=== PATIENT | female | born 1965 | race Caucasian/White ===

== ENCOUNTER 2020-09-19 13:22 | Outpatient (REF) | payer MEDICARE, MEDICAID, SELFPAY ==
[2020-09-26 13:12] LABS: Vitamin A 40 mcg/dL (38-98)
== END 2020-09-19 13:23 | disposition home or self-care (01) ==
LOC: HO.LAB 13:22
PROVIDERS: Visit Provider Physician Assistant
DX: E66.3 Overweight (principal)
CPT/HCPCS: 84590

== ENCOUNTER → 2020-09-25 09:08 | Outpatient (BNVA) | payer MEDICARE, MEDICAID, SELFPAY | PROVIDERS: PCP Internal Medicine; Referring Provider Internal Medicine; Visit Provider Dietitian, Registered | DX: Z76.89 Persons encountering health services in other specified circumstances (principal) ==

== ENCOUNTER 2020-10-02 14:05 | Outpatient (REF) | payer MEDICARE, MEDICAID, SELFPAY ==
--- NOTE | 2020-10-02 | US_ITS ---
EXAMINATION: MM DIAGNOSTIC DIGITAL BREAST TOMOSYNTHESIS, BILATERAL US DIAGNOSTIC ULTRASOUND BREAST, LEFT CLINICAL INFORMATION: Recent pain outer left breast and axilla. No pain at time of visit. No palpable mass or discharge. Family history breast cancer, mother. The lifetime risk of breast cancer based on the Tyrer-Cuzick Model is 16%. COMPARISON: Mammography: 01/18/2020, 01/17/2019, 02/12/2018, 01/10/2017, 12/24/2015 TECHNIQUE: Digital breast tomosynthesis is performed in both the craniocaudal and mediolateral oblique views along with computer-aided detection (CAD). Synthesized 2D images are generated from the tomosynthesis. Ultrasound left breast is targeted to the upper outer quadrant and axilla and anterior mid lateral breast. Grayscale imaging and color Doppler are performed without and with harmonics. FINDINGS: There are scattered areas of fibroglandular density (ACR BI-RADS breast composition Category b). There is denser breast tissue composition in the bilateral upper outer quadrants in similar distribution to prior studies. There is no developing density or interval mass or architectural abnormality. No abnormal calcifications. The axilla and skin contours are unremarkable. There is no skin thickening or coarsening of the Koko's ligaments. Ultrasound left breast demonstrates no cystic or solid mass or focal duct ectasia. There is no skin thickening or coarsening of the Koko's ligaments. No lymphadenopathy. Results are discussed with the patient at time of visit. US/US breast LT limited IMPRESSION: 1. There are no significant changes from prior studies. 2. Unremarkable left breast ultrasound. ASSESSMENT: BI-RADS 1: Negative RECOMMENDATION: 1. Patient's recent left breast pain may be managed based on the clinical impression. 2. Otherwise, routine annual screening mammography. This patient's information was entered into a reminder system with a target due date for their next mammogram.
--- NOTE | 2020-10-02 13:45 | MM_ITS ---
EXAMINATION: MM DIAGNOSTIC DIGITAL BREAST TOMOSYNTHESIS, BILATERAL US DIAGNOSTIC ULTRASOUND BREAST, LEFT CLINICAL INFORMATION: Recent pain outer left breast and axilla. No pain at time of visit. No palpable mass or discharge. Family history breast cancer, mother. The lifetime risk of breast cancer based on the Tyrer-Cuzick Model is 16%. COMPARISON: Mammography: 01/18/2020, 01/17/2019, 02/12/2018, 01/10/2017, 12/24/2015 TECHNIQUE: Digital breast tomosynthesis is performed in both the craniocaudal and mediolateral oblique views along with computer-aided detection (CAD). Synthesized 2D images are generated from the tomosynthesis. Ultrasound left breast is targeted to the upper outer quadrant and axilla and anterior mid lateral breast. Grayscale imaging and color Doppler are performed without and with harmonics. FINDINGS: There are scattered areas of fibroglandular density (ACR BI-RADS breast composition Category b). There is denser breast tissue composition in the bilateral upper outer quadrants in similar distribution to prior studies. There is no developing density or interval mass or architectural abnormality. No abnormal calcifications. The axilla and skin contours are unremarkable. There is no skin thickening or coarsening of the Koko's ligaments. Ultrasound left breast demonstrates no cystic or solid mass or focal duct ectasia. There is no skin thickening or coarsening of the Koko's ligaments. No lymphadenopathy. Results are discussed with the patient at time of visit. MM/MM tomosynthesis diagnostic BI IMPRESSION: 1. There are no significant changes from prior studies. 2. Unremarkable left breast ultrasound. ASSESSMENT: BI-RADS 1: Negative RECOMMENDATION: 1. Patient's recent left breast pain may be managed based on the clinical impression. 2. Otherwise, routine annual screening mammography. This patient's information was entered into a reminder system with a target due date for their next mammogram.
== END 2020-10-02 14:06 | disposition home or self-care (01) ==
LOC: HO.MAMMO 14:05
PROVIDERS: Visit Provider Emergency Medicine
DX: N64.4 Mastodynia (principal)
CPT/HCPCS: 76642; 77062; 77066

== ENCOUNTER → 2020-11-07 08:15 | Outpatient (BNVA) | payer MEDICAID, MEDICARE, SELFPAY | PROVIDERS: PCP Internal Medicine; Visit Provider Physician Assistant | DX: Z76.89 Persons encountering health services in other specified circumstances (principal) ==

== ENCOUNTER → 2020-11-28 09:08 | Outpatient (BNVA) | payer MEDICAID, MEDICARE, SELFPAY | PROVIDERS: PCP Internal Medicine; Visit Provider Physician Assistant | DX: Z76.89 Persons encountering health services in other specified circumstances (principal) ==

== ENCOUNTER 2020-12-01 07:49 | Outpatient (REF) | payer MEDICARE, MEDICAID, SELFPAY ==
[2020-12-01 08:25] LABS: MANUAL DIFF FLAG NO
[2020-12-01 08:27] LABS: Basophils Percent Auto 0.2 % (0-2); Eosinophils Absolute Auto 0.1 X10*3/uL (0.0-0.4); Eosinophils Percent Auto 1.6 % (0-4); Hematocrit 37.6 % (37-47); Hemoglobin 12.2 g/dl (12.0-16.0); Imm Gran Abs Auto 0.01 X10*3/uL (0.00-0.03); Imm Gran Pct Auto 0.2 % (0.0-0.4); Lymphocytes Percent Auto 36.7 % (20-40); Mean Corpuscular HGB Conc 32.4 g/dl (31.0-35.0); Mean Corpuscular Hemoglobin 27.4 pg (27.0-33.0); Mean Corpuscular Volume 84.5 fL (80-98); Monocytes Absolute Auto 0.6 X10*3/uL (0.1-1.2); Monocytes Percent Auto 10.1 % (2-11); Neutrophils Absolute Auto 2.8 X10*3/uL (2.0-8.3); Neutrophils Percent Auto 51.2 % (45-73); Platelet Count 247 X10*3/uL (160-400); Red Blood Count 4.45 X10*6/uL (4.20-5.50); Red Cell Distribution Width 13.2 % (11.0-16.0); White Blood Count 5.5 X10*3/uL (4.8-10.8)
[2020-12-01 08:37] LABS: Glucose Urine UA NEG (NEG); Leukocyte Esterase Urine NEG (NEG); Nitrite Urine NEG (NEG); PH 7.5 (5.0-8.0); Urine Blood NEG (NEG); Urine Ketones NEG (NEG); Urine Protein NEG (NEG-TRACE)
[2020-12-01 08:44] LABS: Appearance Urine HAZY; Color Urine YELLOW
[2020-12-01 09:05] LABS: Alanine Aminotransferase 13 U/L (0-31); Albumin Level 4.1 g/dL (3.5-5.0); Anion Gap 12 (12-20); Aspartate Amino Transferase 12 U/L (5-31); Bilirubin Total 0.5 mg/dL (0.0-1.0); Blood Urea Nitrogen 16 mg/dL (9-16); C Reactive Protein 0.31 mg/dL (< or = 0.50); Calcium 9.8 mg/dL (8.4-10.2); Carbon Dioxide 28 mmol/L (22-29); Chloride 104 mmol/L (96-108); Estimated Glomerular Filt Rate > 60; Potassium 4.1 mmol/l (3.3-5.1); Sodium 140 mmol/L (135-145)
[2020-12-01 09:07] LABS: Amorphous Sediment Urine 1+ /LPF; Bacteria Urine TRACE /LPF; RBC Urine 0 /HPF (0); Squamous Epithelial Cell Urine 4+ /LPF; WBC Urine 0-2 /HPF (0-4)
[2020-12-01 09:34] LABS: Alkaline Phosphatase 65 U/L (39-117); Glucose Random 113 mg/dL (60-115); Total Protein 7.2 g/dL (6.5-8.0)
[2020-12-01 09:37] LABS: Erythrocyte Sedimentation Rate 20 MM/HR (0-20)
[2020-12-03 13:12] LABS: Anti DNA DS Antibody 2 IU/mL
[2020-12-03 14:27] LABS: Complement C3 93 mg/dL (83-193)
== END 2020-12-01 07:50 | disposition home or self-care (01) ==
LOC: HO.LAB 07:49
PROVIDERS: Absent Provider Physician Assistant; Visit Provider Student in an Organized Health Care Education/Training Program
DX: M32.9 Systemic lupus erythematosus, unspecified (principal)
CPT/HCPCS: 36415; 80053; 81001; 85025; 85652; 86140; 86160; 86225

== ENCOUNTER → 2021-02-27 08:13 | Outpatient (BNVA) | payer MEDICARE, MEDICAID, SELFPAY | PROVIDERS: PCP Internal Medicine; Visit Provider Physician Assistant | DX: E66.3 Overweight (principal); Z68.28 Body mass index [BMI] 28.0-28.9, adult; Z90.3 Acquired absence of stomach [part of]; Z71.3 Dietary counseling and surveillance; Z79.899 Other long term (current) drug therapy | CPT/HCPCS: Q3014 ==

== ENCOUNTER 2021-03-06 09:01 | Outpatient (REF) | payer MEDICARE, MEDICAID, SELFPAY ==
[2021-03-06 11:08] LABS: Estimated Average Glucose 120 mg/dL; Hemoglobin A1c % 5.8 %
[2021-03-06 11:24] LABS: Cholesterol 227 mg/dL; HDL Cholesterol 52 mg/dL; LDL Cholesterol Calculated 156 mg/dl; Triglycerides 96 mg/dL
[2021-03-06 11:29] LABS: TSH reflex Free T4 1.71 uIU/mL (0.32-4.0); Vitamin D 25-OH Total 32.7 ng/mL (>30)
[2021-03-06 12:04] LABS: Folate 13.7 ng/mL (> or = 4.0); Vitamin B12 > 2000 pg/mL (200-900)
[2021-03-07 06:46] LABS: Insulin Level Total 4.4 uIU/mL
[2021-03-09 12:47] LABS: Vitamin B1 34 nmol/L (8-30)
[2021-03-10 09:42] LABS: Vitamin A 37 mcg/dL (38-98)
== END 2021-03-06 09:02 | disposition home or self-care (01) ==
LOC: HO.LAB 09:01
PROVIDERS: Visit Provider Physician Assistant
DX: E78.5 Hyperlipidemia, unspecified (principal); E66.3 Overweight; Z90.3 Acquired absence of stomach [part of]
CPT/HCPCS: 36415; 80061; 82306; 82607; 82746; 83036; 83525; 84425; 84443; 84590

== ENCOUNTER → 2021-03-20 08:30 | Outpatient (BNVA) | payer MEDICARE, MEDICAID, SELFPAY | PROVIDERS: Visit Provider Physician Assistant | DX: E66.3 Overweight (principal); Z90.3 Acquired absence of stomach [part of]; Z68.28 Body mass index [BMI] 28.0-28.9, adult | CPT/HCPCS: Q3014 ==

== ENCOUNTER → 2021-03-21 14:12 | Outpatient (BNVA) | payer MEDICARE, MEDICAID, SELFPAY | PROVIDERS: PCP Internal Medicine; Visit Provider Student in an Organized Health Care Education/Training Program | DX: M32.9 Systemic lupus erythematosus, unspecified (principal) | CPT/HCPCS: 99212 ==

== ENCOUNTER 2021-04-15 13:52 | Outpatient (REF) | payer MEDICARE, MEDICAID, SELFPAY ==
[2021-04-15 14:36] LABS: MANUAL DIFF FLAG NO
[2021-04-15 14:46] LABS: Basophils Percent Auto 0.5 % (0-2); Eosinophils Absolute Auto 0.1 X10*3/uL (0.0-0.4); Eosinophils Percent Auto 1.6 % (0-4); Hematocrit 35.5 % (37-47); Hemoglobin 11.2 g/dl (12.0-16.0); Imm Gran Abs Auto 0.02 X10*3/uL (0.00-0.03); Imm Gran Pct Auto 0.3 % (0.0-0.4); Lymphocytes Absolute Auto 1.7 X10*3/uL (1.2-4.9); Lymphocytes Percent Auto 26.7 % (20-40); Mean Corpuscular HGB Conc 31.5 g/dl (31.0-35.0); Mean Corpuscular Hemoglobin 26.9 pg (27.0-33.0); Mean Corpuscular Volume 85.1 fL (80-98); Mean Platelet Volume 10.9 fL (9.4-12.3); Monocytes Absolute Auto 0.6 X10*3/uL (0.1-1.2); Monocytes Percent Auto 8.7 % (2-11); Neutrophils Percent Auto 62.2 % (45-73); Platelet Count 268 X10*3/uL (160-400); Red Blood Count 4.17 X10*6/uL (4.20-5.50); Red Cell Distribution Width 13.4 % (11.0-16.0); White Blood Count 6.3 X10*3/uL (4.8-10.8)
[2021-04-15 15:00] LABS: Alanine Aminotransferase 15 U/L (0-31); Albumin Level 4.1 g/dL (3.5-5.0); Alkaline Phosphatase 67 U/L (39-117); Anion Gap 11 (12-20); Aspartate Amino Transferase 15 U/L (5-31); Bilirubin Total 0.7 mg/dL (0.0-1.0); Blood Urea Nitrogen 16 mg/dL (9-16); C Reactive Protein 0.61 mg/dL (< or = 0.50); Calcium 9.7 mg/dL (8.4-10.2); Carbon Dioxide 25 mmol/L (22-29); Chloride 107 mmol/L (96-108); Estimated Glomerular Filt Rate > 60; Glucose Random 86 mg/dL (60-115); Potassium 4.2 mmol/L (3.3-5.1); Sodium 139 mmol/L (135-145); Total Protein 7.2 g/dL (6.5-8.0)
[2021-04-15 15:16] LABS: Glucose Urine UA NEG (NEG); Leukocyte Esterase Urine NEG (NEG); Nitrite Urine NEG (NEG); Specific Gravity - Urine 1.025 (1.005-1.025); Urine Blood TRACE (NEG); Urine Ketones NEG (NEG); Urine Protein NEG (NEG-TRACE)
[2021-04-15 15:18] LABS: Appearance Urine HAZY; Color Urine YELLOW
[2021-04-15 15:29] LABS: Amorphous Sediment Urine TRACE /LPF; Bacteria Urine TRACE /LPF; Squamous Epithelial Cell Urine 2+ /LPF; WBC Urine 0 /HPF (0-4)
[2021-04-15 16:14] LABS: Erythrocyte Sedimentation Rate 23 MM/HR (0-20)
[2021-04-16 11:16] LABS: Complement C3 85 mg/dL (83-193)
[2021-04-17 13:32] LABS: Anti DNA DS Antibody 1 IU/mL
== END 2021-04-15 13:53 | disposition home or self-care (01) ==
LOC: HO.LAB 13:52
PROVIDERS: Visit Provider Student in an Organized Health Care Education/Training Program
DX: M32.9 Systemic lupus erythematosus, unspecified (principal)
CPT/HCPCS: 36415; 80053; 81001; 85025; 85652; 86140; 86160; 86225

== ENCOUNTER 2021-10-25 11:53 | Outpatient (REF) | payer MEDICARE, MEDICAID, SELFPAY ==
--- NOTE | ~2021-10-25 | MM_ITS ---
EXAMINATION: MM SCREENING DIGITAL BREAST TOMOSYNTHESIS, BILATERAL CLINICAL INFORMATION: Screening. Asymptomatic. The lifetime risk of breast cancer based on the Tyrer-Cuzick Model is 15%. COMPARISON: Mammography: 10/02/2020, 01/18/2020, 01/17/2019, 02/12/2018; left breast ultrasound 10/02/2020 TECHNIQUE: Digital breast tomosynthesis is performed in both the craniocaudal and mediolateral oblique views along with computer-aided detection (CAD). Synthesized 2D images are generated from the tomosynthesis. FINDINGS: There are scattered areas of fibroglandular density (ACR BI-RADS breast composition Category b). Breast tissue composition borders on heterogeneously dense in the bilateral upper outer quadrants. Parenchymal pattern is similar to prior studies. There is no significant mass or architectural abnormality or abnormal calcifications. The axilla and skin contours are unremarkable. MM/MM tomosynthesis screening BI IMPRESSION: No mammographic evidence of malignancy. ASSESSMENT: BI-RADS 1: Negative RECOMMENDATION: Routine annual mammography screening. This patient's information was entered into a reminder system with a target due date for their next mammogram.
== END 2021-10-25 11:54 | disposition home or self-care (01) ==
LOC: HO.MAMMO 11:53
PROVIDERS: PCP Internal Medicine; Visit Provider Internal Medicine
DX: Z12.31 Encounter for screening mammogram for malignant neoplasm of breast (principal)
CPT/HCPCS: 77063; 77067

== ENCOUNTER 2022-12-09 07:54 | Outpatient (REF) | payer MEDICARE, SELFPAY ==
--- NOTE | ~2022-12-09 | MM_ITS ---
EXAMINATION: MM SCREENING DIGITAL BREAST TOMOSYNTHESIS, BILATERAL CLINICAL INFORMATION: Screening. Asymptomatic. The lifetime risk of breast cancer based on the Tyrer-Cuzick Model is 9%. COMPARISON: Mammography: 10/25/2021, 10/02/2020, 01/18/2020, 01/17/2019 TECHNIQUE: Digital breast tomosynthesis is performed in both the craniocaudal and mediolateral oblique views along with computer-aided detection (CAD). Synthesized 2D images are generated from the tomosynthesis. FINDINGS: The breasts are heterogeneously dense, which may obscure small masses (ACR BI-RADS breast composition Category c). Denser breast tissue composition is in the upper outer quadrant similar to prior studies. Breast tissue composition borders on average fibroglandular. Parenchymal pattern is similar to prior studies. There is no developing density or architectural abnormality. No abnormal calcifications. The axilla and skin contours are unremarkable. No significant changes from prior studies. MM/MM tomosynthesis screening BI IMPRESSION: No mammographic evidence of malignancy. ASSESSMENT: BI-RADS 1: Negative RECOMMENDATION: Routine annual mammography screening. This patient's information was entered into a reminder system with a target due date for their next mammogram.
== END 2022-12-09 07:55 | disposition home or self-care (01) ==
LOC: HO.MAMMO 07:54
PROVIDERS: PCP Internal Medicine; Visit Provider Internal Medicine
DX: Z12.31 Encounter for screening mammogram for malignant neoplasm of breast (principal)
CPT/HCPCS: 77063; 77067

== ENCOUNTER 2023-01-21 08:06 | Outpatient (REF) | payer MEDICARE, SELFPAY ==
--- NOTE | ~2023-01-21 | XR_ITS ---
EXAMINATION: XR LUMBOSACRAL SPINE CLINICAL INFORMATION: Lower back pain. COMPARISON: None TECHNIQUE: AP and lateral views of the lumbar spine and lateral view of the lumbosacral junction. FINDINGS: The vertebral bodies and posterior elements are normal. The disc spaces are preserved and the vertebral alignment is normal. There is a small Schmorl's node of the L4 upper endplate. There is multi-level mild lumbar spondylosis. The posterior elements are intact. There is facet arthropathy at L5-S1. There are abdominal surgical clips. The paraspinal soft tissues are normal. XR/XR lumbar spine 2-3V IMPRESSION: 1. No acute fracture or spondylolisthesis is seen. 2. The lumbar disc spaces are well-maintained. 3. There is multi-level mild lumbar spondylosis.
--- NOTE | ~2023-01-21 | XR_ITS ---
EXAMINATION: XR SHOULDER, LEFT CLINICAL INFORMATION: Pain. COMPARISON: Radiographs dated 02/10/2016. TECHNIQUE: AP external rotation, Grashey, scapular Y, and axillary views of the left shoulder. FINDINGS: Bony alignment and mineralization are normal. The glenohumeral joint is intact. The acromioclavicular and coracoclavicular intervals are normal. No fracture or dislocation is seen. There is cortical irregularity of the greater tuberosity of the proximal left humerus. No soft tissue calcification or foreign body is seen. There is no left pneumothorax. XR/XR shoulder LT min 2V IMPRESSION: 1. No fracture or dislocation is seen. 2. There is cortical irregularity of the greater tuberosity of the proximal left humerus, which can be associated with rotator cuff impingement. No som calcific tendinitis is noted.
[2023-01-21 10:46] LABS: Basophils Percent Auto 0.3 % (0-2); Eosinophils Absolute Auto 0.1 X10*3/uL (0.0-0.4); Hematocrit 37.6 % (37.0-47.0); Hemoglobin 12.3 g/dl (12.0-16.0); Imm Gran Abs Auto 0.01 X10*3/uL (0.00-0.03); Imm Gran Pct Auto 0.2 % (0.0-0.4); Lymphocytes Absolute Auto 1.6 X10*3/uL (1.2-4.9); Lymphocytes Percent Auto 26.1 % (20-40); MANUAL DIFF FLAG NO; Mean Corpuscular HGB Conc 32.7 g/dl (31.0-35.0); Mean Corpuscular Hemoglobin 26.9 pg (27.0-33.0); Mean Corpuscular Volume 82.3 fL (80.0-98.0); Mean Platelet Volume 11.6 fL (9.4-12.3); Monocytes Absolute Auto 0.6 X10*3/uL (0.1-1.2); Monocytes Percent Auto 9.2 % (2-11); Neutrophils Absolute Auto 3.9 x10*3/uL (2.0-8.3); Neutrophils Percent Auto 63.2 % (45-73); Platelet Count 276 X10*3/uL (160-400); Red Blood Count 4.57 X10*6/uL (4.20-5.50); Red Cell Distribution Width 13.7 % (11.0-16.0); White Blood Count 6.2 X10*3/uL (4.8-10.8)
[2023-01-21 10:58] LABS: Estimated Average Glucose 126 mg/dL
[2023-01-21 11:25] LABS: Alanine Aminotransferase 17 U/L (0-31); Albumin Level 4.1 g/dL (3.5-5.0); Alkaline Phosphatase 70 U/L (39-117); Anion Gap 12 (12-20); Aspartate Amino Transferase 15 U/L (5-31); Bilirubin Total 0.9 mg/dL (0.0-1.0); Blood Urea Nitrogen 14 mg/dL (9-16); C Reactive Protein 0.49 mg/dL (< or = 0.50); Calcium 10.1 mg/dL (8.4-10.2); Carbon Dioxide 28 mmol/L (22-29); Chloride 103 mmol/L (96-108); Estimated Glomerular Filt Rate > 60; Glucose Random 100 mg/dL (60-115); Potassium 4.4 mmol/L (3.3-5.1); Sodium 139 mmol/L (135-145); Total Protein 7.4 g/dL (6.5-8.0)
[2023-01-21 11:37] LABS: Erythrocyte Sedimentation Rate 28 MM/HR (0-20)
[2023-01-21 11:54] LABS: Protein/Creatinine Ratio, Ur 0.07 (<0.2); Total Protein Urine Random 12 mg/dL (<12)
[2023-01-22 13:18] LABS: Anti DNA DS Antibody 1 IU/mL; SM/Ribonucleoprotein Ab <1.0 NEG AI (<1.0 NEG); Smith Protein <1.0 NEG AI (<1.0 NEG)
[2023-01-22 16:32] LABS: Complement C3 154 mg/dL (83-193)
== END 2023-01-21 08:07 | disposition home or self-care (01) ==
LOC: HO.LAB 08:06
PROVIDERS: PCP Internal Medicine; Visit Provider Nurse Practitioner Family
DX: M32.9 Systemic lupus erythematosus, unspecified (principal); M25.512 Pain in left shoulder; M54.50 Low back pain, unspecified; Z79.899 Other long term (current) drug therapy
CPT/HCPCS: 36415; 72100; 73030; 80053; 83036; 84156; 85025; 85652; 86140; 86160; 86225; 86235; 99212

== ENCOUNTER → 2023-02-20 07:20 | Outpatient (BNVA) | payer MEDICARE, SELFPAY | PROVIDERS: PCP Internal Medicine; Visit Provider Nurse Practitioner Family | DX: M54.50 Low back pain, unspecified (principal); M79.7 Fibromyalgia | CPT/HCPCS: 99212 ==

== ENCOUNTER 2023-06-03 08:37 | Outpatient (REF) | payer MEDICARE, SELFPAY ==
--- NOTE | ~2023-06-03 | XR_ITS ---
X-RAY LUMBAR SPINE X-RAY RIGHT HIP CLINICAL HISTORY: Pain. COMPARISON: Radiograph of the lumbar spine 01/21/2023. TECHNIQUE: 3 views of the lumbar spine. 2 views of the right hip. FINDINGS: Lumbar spine: No acute compression deformity or subluxation. Moderate joint space narrowing and facet arthropathy at L5-S1 with some degree of neural foraminal encroachment. Fairly symmetric increased sclerosis of the SI joints. No significant paraspinal soft tissue abnormality. Surgical clips and anastomotic sutures projecting over the gastric region. Right hip: No acute fracture or subluxation. Moderate joint space narrowing and subcortical sclerosis of the right hip. No significant soft tissue abnormality. XR/XR lumbar spine 2-3V IMPRESSION: 1. No acute compression deformity or subluxation. 2. Moderate degenerative osteoarthritis of the right hip. 3. Moderate degenerative changes in the lumbar spine at L5-S1 leading to neural foraminal encroachment, further evaluation with an MRI could be obtained as clinically indicated.
--- NOTE | ~2023-06-03 | XR_ITS ---
X-RAY LUMBAR SPINE X-RAY RIGHT HIP CLINICAL HISTORY: Pain. COMPARISON: Radiograph of the lumbar spine 01/21/2023. TECHNIQUE: 3 views of the lumbar spine. 2 views of the right hip. FINDINGS: Lumbar spine: No acute compression deformity or subluxation. Moderate joint space narrowing and facet arthropathy at L5-S1 with some degree of neural foraminal encroachment. Fairly symmetric increased sclerosis of the SI joints. No significant paraspinal soft tissue abnormality. Surgical clips and anastomotic sutures projecting over the gastric region. Right hip: No acute fracture or subluxation. Moderate joint space narrowing and subcortical sclerosis of the right hip. No significant soft tissue abnormality. XR/XR hip RT min 2V IMPRESSION: 1. No acute compression deformity or subluxation. 2. Moderate degenerative osteoarthritis of the right hip. 3. Moderate degenerative changes in the lumbar spine at L5-S1 leading to neural foraminal encroachment, further evaluation with an MRI could be obtained as clinically indicated.
== END 2023-06-03 08:38 | disposition home or self-care (01) ==
LOC: HO.HHCX 08:37
PROVIDERS: Visit Provider Registered Nurse
DX: M54.50 Low back pain, unspecified (principal); R10.31 Right lower quadrant pain; M25.551 Pain in right hip
CPT/HCPCS: 72100; 73502

== ENCOUNTER 2023-12-15 08:38 | Outpatient (REF) | payer MEDICARE, SELFPAY | END 2023-12-15 08:39 | disposition home or self-care (01) | LOC: HO.MAMMO 08:38 | PROVIDERS: PCP Internal Medicine; Visit Provider Internal Medicine | DX: Z12.31 Encounter for screening mammogram for malignant neoplasm of breast (principal) | CPT/HCPCS: 77063; 77067 ==

== ENCOUNTER → 2023-12-15 09:45 | Outpatient (BNV) | payer MEDICARE, SELFPAY | PROVIDERS: PCP Internal Medicine; Visit Provider Radiology Diagnostic Radiology | DX: Z12.31 Encounter for screening mammogram for malignant neoplasm of breast (principal) | CPT/HCPCS: 77063; 77067 ==

== ENCOUNTER 2024-09-02 08:16 | Outpatient (REF) | payer MEDICARE, SELFPAY ==
[2024-09-02 11:19] LABS: Appearance Urine Clear; Color Urine Yellow; Glucose Urine UA Negative (Negative); Leukocyte Esterase Urine Trace (Negative); Nitrite Urine Negative (Negative); PH 6.5 (5.0-9.0); Specific Gravity - Urine 1.025 (1.005-1.025); UMIC TRIGGER UACC YES; Urine Blood Trace (Negative); Urine Ketones Negative (Negative); Urine Protein Negative (Neg-Trace)
[2024-09-02 11:20] LABS: MANUAL DIFF FLAG NO
[2024-09-02 11:26] LABS: Bacteria Urine 1+ (None Seen); Hyaline Casts Urine 0-2 /LPF (0-2); UACC Culture Trigger YES
[2024-09-02 11:28] LABS: Basophils Percent Auto 0.4 % (0-2); Eosinophils Absolute Auto 0.1 X10*3/uL (0.0-0.4); Hematocrit 37.4 % (37.0-47.0); Imm Gran Abs Auto 0.01 X10*3/uL (0.00-0.03); Imm Gran Pct Auto 0.2 % (0.0-0.4); Lymphocytes Absolute Auto 1.6 X10*3/uL (1.2-4.9); Lymphocytes Percent Auto 29.6 % (20-40); Mean Corpuscular HGB Conc 32.1 g/dl (31.0-35.0); Mean Corpuscular Hemoglobin 26.7 pg (27.0-33.0); Mean Corpuscular Volume 83.1 fL (80.0-98.0); Mean Platelet Volume 11.5 fL (9.4-12.3); Monocytes Absolute Auto 0.5 X10*3/uL (0.1-1.2); Monocytes Percent Auto 9.4 % (2-11); Neutrophils Absolute Auto 3.2 x10*3/uL (2.0-8.3); Neutrophils Percent Auto 58.4 % (45-73); Platelet Count 267 X10*3/uL (160-400); Red Cell Distribution Width 14.1 % (11.0-16.0); White Blood Count 5.4 X10*3/uL (4.8-10.8)
[2024-09-02 11:37] LABS: Estimated Average Glucose 126 mg/dL; Hemoglobin A1C 123.7162 umol/L; Total Hemoglobin (HGBA1C) 2943.7318 umol/L
[2024-09-02 11:57] LABS: Alanine Aminotransferase 16 U/L (0-31); Albumin Level 3.9 g/dL (3.5-5.0); Alkaline Phosphatase 61 U/L (39-117); Anion Gap 9 (12-20); Aspartate Amino Transferase 17 U/L (5-31); Bilirubin Total 0.8 mg/dL (0.0-1.0); Blood Urea Nitrogen 12 mg/dL (9-16); C Reactive Protein 0.49 mg/dL (< or = 0.50); Calcium 9.7 mg/dL (8.4-10.2); Carbon Dioxide 28 mmol/L (22-29); Chloride 106 mmol/L (96-108); Cholesterol 262 mg/dL (<200); Estimated Glomerular Filt Rate > 60; Glucose Random 104 mg/dL (60-115); HDL Cholesterol 50 mg/dL (>40); LDL Cholesterol Calculated 193 mg/dL (<100); Potassium 3.9 mmol/L (3.3-5.1); Sodium 139 mmol/L (135-145); TSH reflex Free T4 3.26 uIU/mL (0.32-4.0); Total Protein 7.3 g/dL (6.5-8.0); Triglycerides 99 mg/dL (<150)
[2024-09-02 12:00] LABS: HIV AB/AG Nonreactive (Nonreactive); HIV Num 1 0.04 S/CO (0.00-0.99); ~HepC Num1 0.52 S/CO (0.00-0.79); ~Hepatitis C Antibody Nonreactive (Nonreactive)
[2024-09-02 12:01] LABS: Erythrocyte Sedimentation Rate 25 MM/HR (0-20)
[2024-09-05 14:09] LABS: Anti Nuclear Antibody Screen NEGATIVE (NEGATIVE)
== END 2024-09-02 08:17 | disposition home or self-care (01) ==
LOC: HO.HHCL 08:16
PROVIDERS: Visit Provider General Practice
DX: L93.0 Discoid lupus erythematosus (principal); I10 Essential (primary) hypertension; Z11.3 Encounter for screening for infections with a predominantly sexual mode of transmission; R73.03 Prediabetes
CPT/HCPCS: 36415; 80053; 80061; 81001; 83036; 84443; 85025; 85652; 86038; 86140; 86803; 87086; 87389

== ENCOUNTER 2024-12-15 12:19 | Outpatient (AMB) | payer OTHER, SELFPAY ==
--- NOTE | 2024-12-15 12:45 | MHC.OFFVIS ---
Vital Signs 12/15/24 12:50 Height 5 ft 3 in Weight 182 lb 12.211 oz BMI 32.4 BP 124/80 Blood Pressure Location Lt brachial Position Sitting Pulse 82 Pulse Source Pulse Oximeter Pulse Oximetry (%) 97 Oxygen Delivery Method Room Air Intake Visit Reasons: SLE Intake Note: Patient presents for SLE. 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 Services: Drug And Alcohol Treatment Specialist Present Drug And Alcohol Treatment Specialist Name: Oliver [phone] Information Interpreted: non-clinical & clinical Allergies Penicillins [PENICILLINS] Allergy (Intermediate, Verified 12/15/24 12:48) RASH Medication List - Last Reconciled 12/15/24 by Jaycee Lemon MD ascorbate calcium (vitamin C) 500 mg PO DAILY biotin 5 mg PO DAILY cholecalciferol (vitamin D3) 50 mcg PO DAILY clonazepam 0.5 mg PO BID PRN escitalopram oxalate 5 mg PO DAILY fluoxetine 40 mg PO QAM mecobalamin (vitamin B12) 1,000 mcg PO DAILY nortriptyline 10 mg PO BEDTIME HPI Comments Details: Patient is a 59-year-old female with anxiety and depression, fibromyalgia, lupus and polyarticular osteoarthritis here today for follow up Interval History: Patient last seen 02/20/2023 with Iza Vann. At that time patient did not have any signs or symptoms concerning for active lupus. She did have evidence of fibromyalgia with positive tender points and was doing well with nortriptyline. Since then patient has been lost to follow up since that rheumatology provider left. Has been off Plaquenil. Has not noted any joint pain or any joint symptoms since being off Plaquenil Today's complain of whole-body pains. This is component by the recent of her and she is currently taking care of her sick mother. Pain includes her hips, knees, low back and shoulders. Denies any hand pain or swelling or prolonged morning stiffness. No rashes. No oral ulcers. Rheumatologic History: History of lupus and fibromyalgia No organ involvement lupus Current Rheumatology Medication(s): Nortriptyline 10mg bedtime (being given by primary) [facility] Medical History (Updated 12/15/24 @ 13:28 by Jaycee Lemon MD) Knee osteoarthritis Varicose vein of leg GERD (gastroesophageal reflux disease) Hx of migraines Rheumatoid arthritis Hypertension Lupus Surgical History History of bilateral tubal ligation Family History Mother Cancer Hypertension AD (Alzheimer's disease) Father Stroke Social History Alcohol intake: never Review of Systems Const Details: Review of Systems Constitutional: Denies fever, chills, weight loss ENT: Denies vision changes, eye pain or eye redness, dental caries, dry mouth GI: Denies nausea, vomiting, diarrhea, abdominal pain, change in BM Pulm: Denies SOB, HAMMOND, hemoptysis, wheezing Cards: Denies chest pain, palpitations Skin: Denies Raynaud's, rash, nail changes, photosensitivity, RESEARCH ASSISTANT PROFESSOR: Denies headaches, weakness, paresthesias, recurrent falls MSK: as per HPI All other systems reviewed and are unremarkable except noted above Physical Exam Vital Signs: Last Vital Signs Pulse 82 12/15/24 12:50 BP 124/80 12/15/24 12:50 Pulse Ox 97 12/15/24 12:50 Oxygen Delivery Method Room Air 12/15/24 12:50 BMI result Body Mass Index 32.4 Vital signs reviewed Physical Examination CONSTITUITIONAL Patient alert and cooperative. Well appearing and in no apparent painful distress HEENT Conjunctiva and sclera clear. ?Pupils equal round and reactive to light. ?No lymphadenopathy. ?No oral ulcers CHEST/RESPIRATORY SYSTEM Normal respiratory effort and able to speak in complete sentences. ?Clear to auscultation bilaterally. ?No crackles, rales, rhonchi, wheezes heard. CARDIAC SYSTEM Regular rate and rhythm. ?S1 and S2 heard no murmurs. 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 No deformities noted. ?No synovitis noted to the MCPs, PIPs or DIPs. ?No tenderness to palpation of these joints. Wrists: ?Full range of motion at the wrists without pain. ?No tenderness to palpation or synovitis noted to the wrists. Elbows: Full range of motion without pain. No tenderness, weakness, swelling, increased warmth or erythema. Shoulders: Full range of motion without pain. No tenderness, weakness, swelling, increased warmth or erythema. Hips: Full range of motion without pain. Hip bursa: No tenderness to palpation Knees: ?Full range of motion. ?No tenderness, swelling, increased warmth or erythema.? Crepitations felt bilaterally Ankles: Full range of motion. ?No tenderness, swelling, increased warmth or erythema.? Feet: ?Negative squeeze test. ?No tenderness to palpation or swelling of the MTPs. Tender points:? Tenderness to palpation of bilateral trapezius, supraspinatus, anterior costochondral junctions, lower back paraspinal muscles, SKIN Skin intact without rashes. Results Reviewed Results Reviewed: Laboratory Tests 01/21/23 09/02/24 10:03 08:20 WBC 5.4 RBC 4.50 Hgb 12.0 Hct 37.4 Plt Count 267 Sodium 139 Potassium 3.9 Chloride 106 Carbon Dioxide 28 Calcium 9.7 Total Bilirubin 0.8 AST 17 ALT 16 Alkaline Phosphatase 61 C-Reactive Protein 0.49 Total Protein 7.3 Albumin 3.9 Urine Color Yellow Urine Appearance Clear Urine pH 6.5 Ur Specific [place] 1.025 Urine Protein Negative Urine Blood Trace H Ur Leukocyte Esterase Trace H Urine RBC 6-10 H Urine WBC 11-20 H RICCO Screen NEGATIVE Sm (Armendariz) Antibody <1.0 NEG SM/PINMAKER IgG Antibody <1.0 NEG Double Strand DNA Ab 1 Complement C3 154 Complement C4 43 XR Lumbar spine and right hip 05/2023 FINDINGS: Lumbar spine: No acute compression deformity or subluxation. Moderate joint space narrowing and facet arthropathy at L5-S1 with some degree of neural foraminal encroachment. Fairly symmetric increased sclerosis of the SI joints. No significant paraspinal soft tissue abnormality. Surgical clips and anastomotic sutures projecting over the gastric region. Right hip: No acute fracture or subluxation. Moderate joint space narrowing and subcortical sclerosis of the right hip. No significant soft tissue abnormality. Assessment & Plan Assessment & Plan (1) Lupus: Comment: No evidence of active lupus on exam January 2023 Code(s): M32.9 - Systemic lupus erythematosus, unspecified Category: Medical Plan: #SLE Patient is a 59-year-old female with a history of lupus based on arthralgias, oral ulcers and photosensitivity. Has not been on Plaquenil since 2022. No evidence of active lupus today on examination. We will monitor off Plaquenil for now Plan - hold Plaquenil for now - check labs today: CBC, CMP, ESR, CRP, C3, C4 dsDNA, RICCO, vivi, SSA/SSB UA, upc - RTC 6 months (2) Fibromyalgia: Comment: Started on nortriptyline 01/2023 by psychiatrist with improvement symptoms Code(s): M79.7 - Fibromyalgia Category: Medical Plan: #Fibromyalgia Patient is having fibromyalgia symptoms and this is compounded with the recent of her and her having take care of her mother who is ill with cancer. I recommended continuing to take the nortriptyline at nights. Added tizanidine to her regimen hopefully this will help. Patient does not want to try gabapentin so she tried it in the past and it did not help. Plan - Tizanidine 4mg at night - Continue nortriptyline - Stretches and exercises (3) Knee osteoarthritis: Code(s): M17.9 - Osteoarthritis of knee, unspecified Category: Medical Qualifiers: Osteoarthritis type: primary Laterality: bilateral Qualified Code(s): M17.0 - Bilateral primary osteoarthritis of knee Plan: #Bilateral Knee OA Exam consistent with bilateral knee osteoarthritis. Crepitations felt. No obvious swelling on examination today. Offered steroid injections today but patient stated that she has gotten injections in the past and that did not help so she is declining that today. Plan I spent 30 minutes reviewing the record and labs, taking a history, examining the patient, discussing the treatment plan and documenting in the medical record Orders: Orders Complement C3 Today M32.9 - Systemic lupus erythematosus, unspecified, M79.7 - Fibromyalgia Complement C4 Today M32.9 - Systemic lupus erythematosus, unspecified, M79.7 - Fibromyalgia C Reactive Protein Today M32.9 - Systemic lupus erythematosus, unspecified, M79.7 - Fibromyalgia DNA Double Stranded-Crithidia Today M32.9 - Systemic lupus erythematosus, unspecified, M79.7 - Fibromyalgia Erythrocyte Sedimentation Rate Today M32.9 - Systemic lupus erythematosus, unspecified, M79.7 - Fibromyalgia RICCO Reflex Titer and Pattern Today M32.9 - Systemic lupus erythematosus, unspecified, M79.7 - Fibromyalgia Anti DNA DS Antibody Today M32.9 - Systemic lupus erythematosus, unspecified, M79.7 - Fibromyalgia Lupus Anticoagulant Panel Today M32.9 - Systemic lupus erythematosus, unspecified, M79.7 - Fibromyalgia Sjogren's Antibodies Today M32.9 - Systemic lupus erythematosus, unspecified, M79.7 - Fibromyalgia Complete Blood Count Auto Diff Today M32.9 - Systemic lupus erythematosus, unspecified, M79.7 - Fibromyalgia Comprehensive Met. Panel Today M32.9 - Systemic lupus erythematosus, unspecified, M79.7 - Fibromyalgia Protein Creatinine Ratio, Ur Today M32.9 - Systemic lupus erythematosus, unspecified, M79.7 - Fibromyalgia UA w Microscopic Today M32.9 - Systemic lupus erythematosus, unspecified, M79.7 - Fibromyalgia Sm Sm/PINMAKER Antibodies Today M32.9 - Systemic lupus erythematosus, unspecified, M79.7 - Fibromyalgia Medications: New tizanidine 4 mg PO BEDTIME 90 tabs 1RF muscle spasticity M32.9 - Systemic lupus erythematosus, unspecified, M79.7 - Fibromyalgia Coding Level of Care Code Est Pt Level 3 (75089) Complex EM visit Add On G2211 Diagnoses Lupus M32.9 Fibromyalgia M79.7 Primary osteoarthritis of both knees M17.0 Osteoarthritis type: primary Laterality: bilateral
[2024-12-15 12:50] VITALS: BP 124/80; PULSE 82; O2SAT 97; BMI 32.4
== END 2024-12-15 13:22 | disposition home or self-care (01) ==
PROVIDERS: PCP Internal Medicine; Visit Provider Student in an Organized Health Care Education/Training Program
DX: M32.9 Systemic lupus erythematosus, unspecified (principal); M79.7 Fibromyalgia; M17.0 Bilateral primary osteoarthritis of knee
CPT/HCPCS: 99213; G2211

== ENCOUNTER → 2024-12-15 12:19 | Outpatient (BNVA) | payer MEDICARE, SELFPAY | PROVIDERS: PCP Internal Medicine; Visit Provider Student in an Organized Health Care Education/Training Program | DX: M32.9 Systemic lupus erythematosus, unspecified (principal); M79.7 Fibromyalgia; M17.0 Bilateral primary osteoarthritis of knee | CPT/HCPCS: 99212 ==

== ENCOUNTER 2024-12-16 10:42 | Outpatient (REF) | payer OTHER, SELFPAY ==
[2024-12-16 11:04] LABS: MANUAL DIFF FLAG NO
--- OUTSIDE RECORDS SUMMARY | 2024-12-16 12:17 | XMS_ITS | Encounter Summary ---
Author Organization [employer] Address [address] [place] [address] Care Team Providers Care Hearing Aid Repair Technician Name Role Phone Kay Tamayo MD Primary Care Provider [phone] Reason for Visit * Reason Onset Date Comments Nurse Triage 05/07/2023 Encounter Details Date Type Department Care Team ([facility] st Contact Info) Description 05/07/2023 Telephone [facility] [address], [place] [phone] Kay Tamayo MD [address] [place], [place] [phone] Nurse Triage Social History Tobacco Use Types Packs/Day Years Used Date Smoking Tobacco: Never Smokeless Tobacco: Never Depression Answer Date Recorded Patient Health Questionnaire-9 Score 11 09/11/2023 Patient Health Questionnaire-9 Score 11 09/11/2023 Last PHQ-9: Questionnaire Data Not on file 1 Housing Stability Answer Date Recorded What is your housing situation today? I have fariba hong 04/12/[address] you li ve. Do you have problems with any of the following? None of the above 04/12/2024 Food Insecurity Answer Date Recorded Within the past 12 months, y ou worried that your food would run out before you got money to buy more: Never True 04/12/2024 Within the past 12 months,th e food you bought just didn't last and you didn't have enough money to get more: Never True Transportation Answer Date Recorded In the past 12 months, has l ack of transportation kept you from medical appts, meetings, work or from getting things needed for daily living? No 04/12/2024 Utilities Answer Date Recorded In the past 12 months, has t he electric, gas, oil or water company threatened to shut off services in your home? No 04/12/2024 Depression Answer Date Recorded Patient Health Questionnaire-2 Score 2 09/11/2023 Comments Unknown Sex and Gender Information Value Date Recorded Sex Assigned at Female 09/22/2022 10:16 AM EDT Legal Sex Female 10:16 AM EDT Gender Identity Female 09/22/2022 10:16 AM EDT Sexual Orientation Straight 09/22/2022 10 :16 AM EDT COVID-19 Exposure Response Date Recorded In the last 10 days, have yo u been in contact with someone who was confirmed or suspected to have Coronavirus/COVID-19? No / Unsure 06/02/2023 3:06 PM EDT documented as of this encounter Miscellaneous Notes * Telephone Encounter - Amy Lee RN - 05/07/2023 9:40 AM EDT Triage call with [employer] [place] [id number] Pt reports bad back pain for last 2 weeks. Pt finds it hard to stand and walk. Back pain is located in lower back. Pt has tried ice /heat and is taking ibuprofen 800 mg which does help some. Pt reports pain radiates to left leg. Pt is advised to come to [facility] to be seen by provider and Pt agrees tocome after work. Home care reviewed and Pt is already doing recs daily. Protocol Used: Back Pain (Adult) Protocol-Based Disposition: See in Office or Video Visit within 2 Weeks Video visit not offered Positive Triage Question: * Back pain lasts > 2 weeks * All higher-acuity triage questions were negative Care Advice Discussed: * Reassurance and Education - Back Pain * Cold or Heat * Sleep * Activity * Pain Medicines * Pain Medicines - Extra Notes and Warnings * Reasons To Call Back - Fever occurs - Numbness or weakness occurs, or bowel/bladder problems - Pain begins to shoot into the leg - Pain persists over 2 weeks - Pain becomes worse - You become worse * Telephone Encounter - Steve Cortez - 05/07/2023 9:26 AM EDT Symptom: Back Pain - Not From Injury Outcome: Talk to a nurse or provider within 15 minutes Reason: Can't walk (unless normally can't walk) The caller accepted this outcome Please contact at [phone] Maltese documented in this encounter Plan of Treatment Upcoming Encounters Date Type Department Care Team (Late st Contact Info) Description 12/26/2024 10:00 AM EST Office Visit [facility] [address] [place] [address] Alina Cates, OD [address] [place] [address] 12/30/2024 11:00 AM EST Office Visit [facility] [address] [place] [address] Kay Tamayo MD [address] [place] [address] 01/04/2025 9:00 AM EST Office Visit [facility] [address] [place] [address] Aleks, Susana [address] [place] [address] documented as of this encounter Visit Diagnoses Not on filedocumented in this encounter Care Teams Hearing Aid Repair Technician Relationship Specialty Start Date End Date Kay Tamayo MD [address] [place] [address] PCP - General Family Medicine 11/01/20 documented as of this encounter
--- OUTSIDE RECORDS SUMMARY | 2024-12-16 12:17 | XMS_ITS | Clinical Summary ---
Author Organization [employer] Address [address] [place] [address] Care Team Providers Care Chief Digital Officer Name Role Phone Kay Tamayo MD Primary Care Provider Allergies Active Allergy Reactions Criticality Noted Date Comments Amoxicillin Hives,Rash Medium 12/01/2022 Clavulanic Acid Hives,Rash Medium 09/21/2015 Other reaction(s): Hives/Skin Rash Metformin Dizziness 08/29/2022 Penicillins Hives,Rash Medium 09/21/2015 Other reaction(s): Hives/Skin Rash Medications polyvinyl alcohol (Liquifilm Tears) 1.4 % ophthalmic solution one drop in each eye 4 times a day or more. 0 Active Blood Pressure Monitoring (Omron 3 Series BP Monitor) device USE TO CHECK BLOOD PRESSURE DIRECTED 2 Active Calcium Carb-Cholecalcifero l (Calcium-Vitamin D3) 250-125 MG-UNIT tablet Take 1 tablet by mouth 2 times daily. 2 Active simvastatin (Zocor) 10 MG tabletIndications:O ther hyperlipidemia Take 1 tablet (10 mg) by mouth at bedtime. 90 tablet 3 3 Active ibuprofen 600 MG tabletIndications:F ibromyalgia TAKE 1 TABLET BY MOUTH THREE TIMES DAILY FOR 10 DAYS 90 tablet 2 3 Active clonazePAM (KlonoPIN) 0.5 MG tablet Take 0.5 mg by mouth if needed in the morning and at bedtime. 3 Active Multiple Vitamin (Multi-Vitamin) tablet Take 1 tablet by mouth in the morning. 90 tablet 3 4 Active Acetaminophen 160 MG/5ML syrup Take 10 mL (320 mg) by mouth Every 4-6 hours as needed (headache). 900 mL 11 4 Active ascorbic acid (Vitamin C) 250 MG chewable tablet Chew 1 tablet (250 mg) in the morning. 90 tablet 3 4 Active Vitamin D, Cholecalciferol, 10 MCG (400 UNIT) chewable tablet Chew 2 tablets in the morning. 180 tablet 3 4 Active nortriptyline (Pamelor) 10 MG capsuleIndications: Fibromyalgia Take 1 capsule (10 mg) by mouth at bedtime. 90 capsule 3 4 04/26/20 25 Active FLUoxetine (PROzac) 20 MG capsule Take 1 capsule (20 mg) by mouth Once per day. 90 capsule 3 4 04/26/20 25 Active traZODone (Desyrel) 50 MG tablet TAKE 1/2 TABLET BY MOUTH AT BEDTIME NEEDED FOR SLEEP 4 Active Active Problems Problem Noted Date Diagnosed Date Primary insomnia 09/14/2023 Assessment & Plan (09/14/2023 1:28 PM EDT): Using hypnagogic teas, recommended CBT-i Prediabetes 03/12/2023 Assessment & Plan (03/12/2023 1:46 PM EDT): Daily Metformin Fibromyalgia 02/10/2023 Assessment & Plan (09/14/2023 1:30 PM EDT): Partial relief of symptoms- Cymbalta for daytime and Nortriptyline 10mg at nighttime for sleep/pain Discussed central sensitization etiology of fibro Movement, mood, sleep as cornerstones of mgmt Assessment & Plan (03/12/2023 1:46 PM EDT): Partial relief of symptoms- Cymbalta for daytime and Nortriptyline 10mg at nighttime for sleep/pain explained central sensitization etiology of fibro Movement, mood, sleep as cornerstones of mgmt Assessment & Plan (02/10/2023 1:31 PM EDT): explained central sensitization etiology of fibro Movement, mood, sleep as cornerstones of mgmt Trial Cymbalta for daytime Nortriptyline 10mg at nighttime for sleep/pain followup in 6-8 weeks to discuss these medications Other hyperlipidemia 02/10/2023 Assessment & Plan (03/12/2023 1:46 PM EDT): Encouraged picking up of statin and nightly taking Assessment & Plan (02/10/2023 1:30 PM EDT): Encouraged picking up of statin COVID-19 01/08/2022 Lupus erythematosus 07/01/2019 Assessment & Plan (09/01/2024 4:19 PM EDT): Will order RICCO to again check on this question of possible lupus (does have butterfly rash and joint pain in multiple locations) Also sed rate, CRP, CMP Obesity (BMI 30-39.9) 11/11/2018 Assessment & Plan (02/10/2023 1:29 PM EDT): S/p gastric bypass Working on sleep Anxiety 08/16/2018 Assessment & Plan (09/14/2023 1:29 PM EDT): Trial lavender capsules and/or aromatherapy Essential hypertension 08/16/2018 Assessment & Plan (09/01/2024 4:18 PM EDT): At goal <140/90 Due for labs, entered, she will come tomorrow Assessment & Plan (04/26/2024 1:19 PM EDT): At goal <140/90 Assessment & Plan (02/10/2023 1:29 PM EDT): At goal <140/90 Mood disorder 01/26/2018 Assessment & Plan (12/24/2023 7:43 AM EST): Pt with mixed anxiety and depressive symptoms, along with somatic manifestations and historically poor sleep, in the setting of substantial caregiving burdens. - she is taking Prozac and Lexapro - she is using aromatherapy/complementary means with lavender and valerian - prescribed vitamins for her in chewable form where possible - liquid Tyelnol prn for headaches Assessment & Plan (02/10/2023 1:30 PM EDT): Seems deeply tied to how she is feeling Migraine 05/20/2017 Left-sided trigeminal neuralgia 05/08/2017 Bilateral plantar fasciitis 03/02/2017 Varicose veins of lower extremity 03/02/2017 Depressive disorder 12/20/2015 Assessment & Plan (04/26/2024 1:19 PM EDT): Continue Fluoxetine, Elavil Encounters Date Type Department Care Team Description 11/18/[address] [phone] Kay Tamayo MD No Show 11/09/2024 Patient Outreach [address] [phone] Kay Tamayo MD Pre-visit Planning (SDOH screening completed on 04/12/2024) 10/31/2024 Telephone [facility] [address] [place] [address] Marcie Roman, RN Results 10/30/2024 Orders Only [address] [phone] Kay Tamayo MD Microscopic hematuria (Primary Dx) from Last 3 Months Immunizations Name Administration Dates Next Due Influenza injectable quadriv alent IIV4 with preservative 09/30/2019,08/16/2018 Influenza injectable quadrivalent preservative f ree 10/15/2021,09/19/2020 Pfizer Covid-19 Vaccine 12+ 04/08/2022, Pfizer Covid-19 Vaccine 12+ chandra-sucrose (Brand C ap) 04/08/2022 Tdap 07/18/2016 Zoster, Recombinant 03/17/2022,01/03/2022 Family History Medical History Relation Name Comments Diabetes Father Hypertension Father Breast cancer Mother Relation Name Status Comments Father Mother Social History Tobacco Use Types Packs/Day Years Used Date Smoking Tobacco: Never Passive Smoke Exposure: Never Smokeless Tobacco: Never Tobacco Cessation:Counseling Given: Not Answered Alcohol Use Standard Drinks/Week Comments Never 0 (1 standard drink = 0.6 oz pur e alcohol) Depression Answer Date Recorded Patient Health Questionnaire-9 [...] t he electric, gas, oil or water [employer] threatened to shut off services in your home? No 04/12/2024 Depression Answer Date Recorded Patient Health Questionnaire-2 Score 2 09/11/2023 Comments Unknown Sex and Gender Information Value Date Recorded Sex Assigned at Female 09/22/2022 10:16 AM EDT Legal Sex Female 10:16 AM EDT Gender Identity Female 09/22/2022 10:16 AM EDT Sexual Orientation Straight 09/22/2022 10 :16 AM EDT Last Filed Vital Signs Vital Sign Reading Time Taken Comments Blood Pressure 130/84 04/22/2024 3:54 PM EDT Pulse 81 04/22/2024 3:54 PM EDT Temperature 37.2 ??C (98.9 ??F) 04/22/2024 3:54 PM ED T Respiratory Rate 20 04/22/2024 3:54 PM EDT Oxygen Saturation 99% 04/22/2024 3:54 PM EDT Inhaled Oxygen Concentration - - Weight 83.9 kg (185 lb) 04/22/2024 3:54 PM EDT Height 160 cm (5' 3 ) 04/22/2024 3:54 PM EDT Body Mass Index 32.77 04/22/2024 3:54 PM EDT Plan of Treatment Upcoming Encounters Date Type Department Care Team (Late st Contact Info) Description 12/26/2024 10:00 AM EST Office Visit [facility] [address] [place] [address] Alina Cates, OD [address] [place] [address] 12/30/2024 11:00 AM EST Office Visit [facility] [address] [place] [address] Kay Tamayo MD [address] [place] [address] 01/04/2025 9:00 AM EST Office Visit [facility] ADULT DENTAL [address] [place] [address] Aleks, Susana [address] [place] [address] Health Maintenance Due Date Last Done Comments CT Colonography 1965 FIT DNA/Cologuard 1965 FIT 1965 FOBT 1965 Sigmoidoscopy 1965 Alcohol/Substance Use Screening 1976 Colonoscopy 05/29/2021 05/29/2016 Colorectal Cancer Screening 05/29/2021 Depression Monitoring (PHQ-9) 03/12/2024 09/11/2023, 09/11/2023 Pap Smear 03/15/2024 03/15/2021 COVID-19 Vaccine ( season) 2024 04/08/2022, 04/08/2022, 08/22/2021, Additional history exists Influenza Vaccine (#1) 2024 , 09/19/2020, 09/30/2019, Additional history exists Depression Screening 09/11/2024 09/11/2023, 09/11/20 23 Mammogram 12/15/2024 12/15/2023, 11/23, 12/09/2022, Additional history exists SDOH Screening 04/12/2025 04/12/2024 Tobacco Screening 09/01/2025 09/01/2024 Diabetes: Hemoglobin A1C 09/02/2025 024, 01/21/2023, 07/23/2022, Additional history exists Cervical Cancer Screening 03/15/2026 HPV/Cotest 03/15/2026 03/15/2021 DTaP/Tdap/Td Vaccines (2 - Td or Tdap) 07/18/2026 07/18/2016 Lipid Panel 09/02/2029 09/02/2024, 06/25, 01/07/2022, Additional history exists RSV Patients and Patients Aged 60 years or older (1 - 1-dose 75+ series) 2039 Zoster Vaccines Completed 03/17/2022, 01/03/2022 HIV Screening Completed 09/02/2024 Hepatitis C Screening Completed 09/02/2024 HIB Vaccines Aged Out No longer eligi ble based on patient's age to complete this topic HPV Vaccines Aged Out No longer eligi ble based on patient's age to complete this topic Hepatitis A Vaccines Aged Out No long er eligible based on patient's age to complete this topic Hepatitis B Vaccines Aged Out No long er eligible based on patient's age to complete this topic IPV Vaccines Aged Out No longer eligi ble based on patient's age to complete this topic Meningococcal Vaccine Aged Out No su james eligible based on patient's age to complete this topic Pneumococcal Vaccine: Pediatrics (0 to 5 Years) and At-Risk Patients (6 to 64 Years) Aged Out No longer eligible based on patient's age to complete this topic RSV under 20 months Aged Out No longe r eligible based on patient's age to complete this topic Rotavirus Vaccines Aged Out No longer eligible based on patient's age to complete this topic Procedures Procedure Name Priority Date/Time Associated Diagnosis Comments HEPATITIS C AB W/REFL TO HCV RNA, QN, PCR Routine 09/02/2024 8:20 AM EDT Screening examination for STI HIV 1/2 ANTIGEN/ANTIBODY, FOURTH GENERATION W/RFL Routine 09/02/2024 8:20 AM EDT Screening examination for STI HEMOGLOBIN A1C Routine 09/02/2024 8:20 AM EDT Prediabetes LIPID PANEL, STANDARD Routine 09/02/2024 8:20 AM EDT Essential hypertension BI MAMMOGRAM SCREENING TOMOSYNTHESIS BILATERAL Routine 12/15/2023 9:00 AM EST HPV MRNA E6/E7 REFLEX TO HPV 16, 18/45 Routine 03/15/2021 1:47 PM EDT THINPREP IMAGING SYSTEM PAP Routine 03/15/2021 1:47 PM EDT HM COLONOSCOPY Routine 05/29/2016 from Last 3 Months or Most Recently Relevant to Health Maintenance Results * Hepatitis C Antibody with Reflex to HCV, RNA, Quantitative, Real-Time PCR (09/02/2024 8:20 AM EDT) Hepatitis C Antibody Nonreactive Nonreactive [facility] Comment:Antibodies to HCV no t detected; does not exclude early acuteHCV infection. Blood Venous blood specimen / Unknown 09/02/2024 8:20 AM EDT 09/02/2024 11:09 AM EDT us Kay Tamayo MD LAB BLOOD ORDERABLES Final Res ult [facility] [address] [place] [phone] * HIV-1/2 Antigen and Antibodies, Fourth Generation, with Reflexes (09/02/2024 8:20 AM EDT) HIV AB/AG Nonreactive Nonreactive [facility] Comment:HIV-1 p24 Ag and/or HIV-1/HIV-2 Ab not detected.A test result that is nonreactive does not exclude thepossibility of exposure to or infection with HIV-1 and/orHIV-2. Nonreactive results in this assay for individualswith prior exposure to HIV-1 and/or HIV-2 may be due toantigen and antibody levels that are below the limit ofdetection of this assay.The [employer] HIV Ag/Ab Combo assay result andsupplemental assay results should be interpreted inconjunction with the patient's clinical presentation,history and other laboratory results. If the results areinconsistent with clinical evidence, additional testing issuggested to confirm the result. Blood Venous blood specimen / Unknown 09/02/2024 8:20 AM EDT 09/02/2024 11:09 AM EDT Kay Tamayo MD LAB BLOOD ORDERABLES Final Res ult Performing Organization Address [facility] Co de Phone Number [facility] [address] [place] [phone] * Hemoglobin A1c (09/02/2024 8:20 AM EDT) Hemoglobin A1c 6.0 <6.0 % [facility] Comment:Hemoglobin A1C Refer ence Range Adults: 4.8 - 6.0 % Non diabetic: < 6.0 % Goal: < 7.0 %Additional Action Suggested: > 8.0 %Note: Hemoglobin A1c results are invalid for patients with abnormal amounts of HbF. Blood transfusions may impact the HbA1c concentration in the patient sample. Estimated Average Glucose 126 mg/dL [facility] Comment:eAG = Estimated ave rage glucose which is %A1C expressed asaverage glucose, using the formula of the C1K-FctetziGfyefwc Glucose study (ADAG), Diabetes Care, Vol.31,#8,Jun. 2007 Blood Venous blood specimen / Unknown 09/02/2024 8:20 AM EDT 09/02/2024 11:09 AM EDT Kay Tamayo MD LAB BLOOD ORDERABLES Final Res ult Performing Organization Address [facility] Co de Phone Number [facility] [address] [place] [phone] * (ABNORMAL) Lipid Panel, Standard (09/02/2024 8:20 AM EDT) Triglycerides 99 <150 mg/dL [facility] Comment:Desirable Triglyceri de: less than 150 mg/dLBorderline High Triglyceride 150-199 mg/dLHigh Triglyceride: 200-499 mg/dLVery High Triglyceride: greater than or equal to 5OO mg/dL Cholesterol 262(H) <200 mg/dL [facility] Comment:Desirable Cholestero l: less than 200 mg/dLBorderline High Cholesterol: 200-239 mg/dLHigh Cholesterol: greater than 239 mg/dL LDL Cholesterol Calculated 193(H) <100 mg/dL [facility] Comment:Desirable LDL: less than 100 mg/dLNear Optimal/Above Optimal LDL: 110- 129 mg/dLBorderline High LDL: 130-159 mg/dLHigh LDL: 160-189 mg/dLVery High LDL: greater than or equal to 190 mg/dL HDL Cholesterol 50 >40 mg/dL [facility] Comment:Desirable HDL: great er than 40 mg/dL Note: This HDL assay may give artificially low results in patients with liver disease. Blood Venous blood specimen / Unknown 09/02/2024 8:20 AM EDT 09/02/2024 11:09 AM EDT us Kay Tamayo MD LAB BLOOD ORDERABLES Final Res ult [facility] [address] [place] [phone] * BI Mammogram Screening Tomosynthesis Bilateral (12/15/2023 9:00 AM EST) Anatomical Region Laterality Modality Breast Bilateral Mammography 12/15/2023 9:00 AM EST Narrative 12/29/2023 8:12 AM EST ? [facility] ? [address] ?[place] [address] ? Mammography Report ? Signed ? Patient: Bae Rony,Yuko ?MR#: [id number] ?? [id number] ? : 1965 ?Acct:[id number] ? Age/Sex: 58 / F ?ADM Date: 01/23/24 ? Loc: HO.MAMMO ? Attending Dr: Yuko Garcia MD ? Ordering Physician: Yuko Miranda MD ?Results: ?? 1Negative ? Date of Service: 12/15/23 ?Follow Up: 1 Year From Orig ?? inal Mammogram ? Procedure(s): MM tomosynthesis screening BI ?? Accession Number(s): [id number] ? cc: Yuko Miranda MD ? EXAMINATION: ?? MM SCREENING DIGITAL BREAST TOMOSYNTHESIS, BILATERAL ? CLINICAL INFORMATION: ? Screening. Asymptomatic. ? COMPARISON: ?? Mammography: This study is compared with prior exams dating back to ?? 2018. ? TECHNIQUE: ?? Digital breast tomosynthesis is performed in both the craniocaudal and ?? mediolateral oblique views along with computer-aided detection (CAD). ?? Synthesized 2D images are generated from the tomosynthesis. ? FINDINGS: ?? The breasts are heterogeneously dense, which may obscure small masses ?? (ACR BI-RADS breast composition Category c). ? There are no significant masses, abnormal calcifications, or other ?? abnormalities. ? MM/MM tomosynthesis screening BI ?? IMPRESSION: ?? No mammographic evidence of malignancy. ? ASSESSMENT: ? BI-RADS BI-RADS 1 - Negative ? RECOMMENDATION: ?? Routine annual mammography screening. ? 1 year F/U ? This examination should not preclude the clinical evaluation of a ?? suspicious palpable abnormality. ? This patient's information was entered into a reminder system with a ?? target due date for their next mammogram. ? Dictated By: ?Emma Freire MD ? Signed By: ?<Electronically signed by Emma Freire MD in OV> ? 12/29/23 08 ? DD/ 0900 ? TD/TT: ? Dermatology Physician Assistant: ? Procedure Note Donotuseinterpreter, Image - 12/29/2023 [facility] [address] [place] [address] Mammography Report Signed Patient: Yuko LyonMR#: [id number] : 1965Acct:[id number] Age/Sex: 58 / FADM Date: 12/15/23 Loc: HO.MAMMO Attending Dr: Yuko Garcia MD Ordering Physician: Yuko Miranda MDResults: 1Negative Date of Service: 12/15/23Follow Up: 1 Year From Orig inal Mammogram Procedure(s): MM tomosynthesis screening BI Accession Number(s): [id number] cc: Yuko Miranda MD EXAMINATION: MM SCREENING DIGITAL BREAST TOMOSYNTHESIS, BILATERAL CLINICAL INFORMATION: Screening. Asymptomatic. COMPARISON: Mammography: This study is compared with prior exams dating back to 2019. TECHNIQUE: Digital breast tomosynthesis is performed in both the craniocaudal and mediolateral oblique views along with computer-aided detection (CAD). Synthesized 2D images are generated from the tomosynthesis. FINDINGS: The breasts are heterogeneously dense, which may obscure small masses (ACR BI-RADS breast composition Category c). There are no significant masses, abnormal calcifications, or other abnormalities. MM/MM tomosynthesis screening BI IMPRESSION: No mammographic evidence of malignancy. ASSESSMENT: BI-RADS BI-RADS 1 - Negative RECOMMENDATION: Routine annual mammography screening. 1 year F/U This examination should not preclude the clinical evaluation of a suspicious palpable abnormality. This patient's information was entered into a reminder system with a target due date for their next mammogram. Dictated By: Emma Freire MD Signed By: <Electronically signed by Emma Freire MD in OV> 12/29/23 0808 DD/ 0900 TD/TT: Dermatology Physician Assistant: us Yuko Garcia MD IMG BI PROCEDURES Saturnino kelly Result - Final * THINPREP TIS PAP (03/15/2021 1:47 PM EDT) Clinical Information: None given [facility] COMMENT SEE COMMENT [facility] Comment: EXPLANATORY NOTE: ? The Pap is a screening test for cervical cancer. It is ?? not a diagnostic test and is subject to false negative ?? and false positive results. It is most reliable when a ?? satisfactory sample, regularly obtained, is submitted ?? with relevant clinical findings and history, and when ?? the Pap result is evaluated along with historic and ?? current clinical information. ?? COMMENT: This Pap test has been evaluated with computer assisted technology. [facility] Tool And Gauge Inspector : SEE COMMENT [facility] Comment: BLC,CT(ASCP) CT screening location: [address] ??[id number] Interpretation/R esult: Negative for intraepithelial lesion or malignancy. [facility] LMP: NONE GIVEN [facility] Prev. BX: NONE GIVEN [facility] Prev. PAP: NONE GIVEN [facility] SOURCE: None given [facility] Statement Of Adequacy: SEE COMMENT [facility] Comment: Satisfactory for evaluation. Endocervical/transformation zone component present. Age and/or menstrual status not provided 03/15/2021 1:47 PM EDT us Kay Tamayo MD LAB PATHOLOGY ORDERABLES Final Result [facility] [address] * HPV mRNA E6/E7 REFLEX TO HPV 16, 18/45 (03/15/2021 1:47 PM EDT) HPV nRNA E6/E7 Not Detected Not Detected [facility] Comment: Methodology: Assistant Front Desk Manager-Mediated Amplification This assay detects E6/E7 viral messenger RNA (mRNA) from 14 high-risk HPV types (16,18,31,33,35,39,45,51,52,56,58,59,66,68). ? The analytical performance characteristics of this assay have been determined by [facility]. The modifications have not been cleared or approved by the FDA. This assay has been validated pursuant to the CLIA regulations and is used for clinical purposes. ?? For additional information, please refer to http://education.[employer]/faq/THE024g1 (This link if provided for information/ educational purposes only.) 03/15/2021 1:47 PM EDT Kay Tamayo MD LAB CYTOLOGY ORDERABLES Final Result [facility] [address] * Hm Colonoscopy (05/29/2016) Historical Provider HEALTH MAINTENANCE Final Result from Last 3 Months or Most Recently Relevant to Health Maintenance Insurance [facility] Care Teams Chief Digital Officer Relationship Specialty Start Date End Date Kay Tamayo MD [address] [place] [phone] PCP - General Family Medicine 11/01/20
--- OUTSIDE RECORDS SUMMARY | 2024-12-16 12:17 | XMS_ITS | Encounter Summary ---
Author Organization [employer] Address [address] [facility] 7t [place] [address] Care Team Providers Care Rim Technician Name Role Phone Kay Tamayo MD Primary Care Provider [phone] Encounter Details Date Type Department Care Team ([facility] st Contact Info) Description 08/05/2024 Orders Only [facility] MEDICINE [address] [place], [place] [phone] Kya Tamayo MD [address] [place], [place] [phone] Essential hypertension (Primary Dx); Lupus erythematosus, unspecified form; Prediabetes; Screening examination for STI Social History Tobacco Use Types Packs/Day Years Used Date Smoking Tobacco: Never Passive Smoke Exposure: Never Smokeless Tobacco: Never Alcohol Use Standard Drinks/Week Comments Never 0 [...] Orientation Straight 09/22/2022 10 :16 AM EDT documented as of this encounter Plan of Treatment Upcoming Encounters Date Type Department Care Team (Late st Contact Info) Description 12/26/2024 10:00 AM EST Office Visit [facility] OPTOMETRY [address] [place] [address] DarrynAlina, OD [address] [place] [address] 12/30/2024 11:00 AM EST Office Visit [facility] MEDICINE [address] [place] [address] Kay Tamayo MD [address] [place] [address] 01/04/2025 9:00 AM EST Office Visit [facility] ADULT DENTAL [address] [place] [address] Aleks, Susana [address] [place] [address] documented as of this encounter Procedures Procedure Name Priority Date/Time Associated Diagnosis Comments CBC WITH AUTO DIFFERENTIAL Routine 09/02/2024 8:20 AM EDT Lupus erythematosus, unspecified form HEPATITIS C AB W/REFL TO HCV RNA, QN, PCR Routine 09/02/2024 8:20 AM EDT Screening examination for STI HIV 1/2 ANTIGEN/ANTIBODY, FOURTH GENERATION W/RFL Routine 09/02/2024 8:20 AM EDT Screening examination for STI C-REACTIVE PROTEIN Routine 09/02/2024 8: 20 AM EDT Lupus erythematosus, unspecified form HEMOGLOBIN A1C Routine 09/02/2024 8:20 AM EDT Prediabetes COMPREHENSIVE METABOLIC PANEL Routine 09/02/2024 8:20 AM EDT Essential hypertension documented in this encounter Results * HIV-1/2 Antigen and Antibodies, Fourth Generation, with Reflexes (09/02/2024 8:20 AM EDT) HIV AB/AG Nonreactive Nonreactive [facility] Comment:HIV-1 p24 Ag and/or HIV-1/HIV-2 Ab not detected.A test result that is nonreactive does not exclude thepossibility of exposure to or infection with HIV-1 and/orHIV-2. Nonreactive results in this assay for individualswith prior exposure to HIV-1 and/or HIV-2 may be due toantigen and antibody levels that are below the limit ofdetection of this assay.The [employer] HIV Ag/Ab Combo assay result andsupplemental assay results should be interpreted inconjunction with the patient's clinical presentation,history and other laboratory results. If the results areinconsistent with clinical evidence, additional testing issuggested to confirm the result. Blood Venous blood specimen / Unknown 09/02/2024 8:20 AM EDT 09/02/2024 11:09 AM EDT us Kay Tamayo MD LAB BLOOD ORDERABLES Final Res ult [facility] [address] [place] [phone] * Hepatitis C Antibody with Reflex to HCV, RNA, Quantitative, Real-Time PCR (09/02/2024 8:20 AM EDT) Hepatitis C Antibody Nonreactive Nonreactive [facility] Comment:Antibodies to HCV no t detected; does not exclude early acuteHCV infection. Blood Venous blood specimen / Unknown 09/02/2024 8:20 AM EDT 09/02/2024 11:09 AM EDT Kay Tamayo MD LAB BLOOD ORDERABLES Final Res ult Performing Organization Address [facility] Co de Phone Number [facility] [address] [place] [phone] [phone] * Hemoglobin A1c (09/02/2024 8:20 AM EDT) Hemoglobin A1c 6.0 <6.0 % [facility] Comment:Hemoglobin A1C Refer ence Range Adults: 4.8 - 6.0 % Non diabetic: < 6.0 % Goal: < 7.0 %Additional Action Suggested: > 8.0 %Note: Hemoglobin A1c results are invalid for patients with abnormal amounts of HbF. Blood transfusions may impact the HbA1c concentration in the patient sample. Estimated Average Glucose 126 mg/dL [facility] Comment:eAG = Estimated ave rage glucose which is %A1C expressed asaverage glucose, using the formula of the P6C-ToijmtjSvglxri Glucose study (ADAG), Diabetes Care, Vol.31,#8,Jun. 2007 Blood Venous blood specimen / Unknown 09/02/2024 8:20 AM EDT 09/02/2024 11:09 AM EDT Kay Tamayo MD LAB BLOOD ORDERABLES Final Res ult Performing Organization Address [facility] Co de Phone Number [facility] [address] [place] [phone] [phone] * (ABNORMAL) Comprehensive Metabolic Panel (09/02/2024 8:20 AM EDT) Sodium 139 135 - 145 mmol/L [facility] Potassium 3.9 3.3 - 5.1 mmol/L [facility] Chloride 106 96 - 108 mmol/L [facility] Carbon Dioxide 28 22 - 29 mmol/L [facility] Anion Gap 9(L) 12 - 20 [facility] Urea Nitrogen (BUN) 12 9 - 16 mg/dL [facility] Creatinine, Serum 0.73 0.5 - 1.4 mg/dL [facility] Estimated Glomerular Filt Rate >60 [facility] Comment:NOTE: For -Am erican individuals, multiply the result by 1.210.Chronic Kidney Disease: Estimated GFR < 60 mL/min/1.47v4Qxpcjp Kidney Disease: Estimated GFR < 15 mL/min/1.73m2 Glucose 104 60 - 115 mg/dL [facility] Calcium 9.7 8.4 - 10.2 mg/dL [facility] Bilirubin, Total 0.8 0.0 - 1.0 mg/dL [facility] Aspartate Amino Transferase 17 5 - 31 U/L [facility] Alanine Aminotransferase 16 0 - 31 U/L [facility] Total Protein 7.3 6.5 - 8.0 g/dL [facility] Albumin Level 3.9 3.5 - 5.0 g/dL [facility] Alkaline Phosphatase 61 39 - 117 U/L [facility] Blood Venous blood specimen / Unknown 09/02/2024 8:20 AM EDT 09/02/2024 11:09 AM EDT us Kay Tamayo MD LAB BLOOD ORDERABLES Final Res ult [facility] [address] [place] [phone] * (ABNORMAL) CBC auto differential (09/02/2024 8:20 AM EDT) White Blood Count 5.4 4.8 - 10.8 X10*3/uL [facility] Red Blood Count 4.50 4.20 - 5.50 X10*6/uL [facility] Hemoglobin 12.0 12.0 - 16.0 g/dl [facility] Hematocrit 37.4 37.0 - 47.0 % [facility] Mean Corpuscular Volume 83.1 80.0 - 98.0 fL [facility] Mean Corpuscular Hemoglobin 26.7(L) 27.0 - 33.0 pg [facility] Mean Corpuscular HGB Conc 32.1 31.0 - 35.0 g/dl [facility] Red Cell Distribution Width 14.1 11.0 - 16.0 % [facility] Platelet Count 267 160 - 400 X10*3/uL [facility] Mean Platelet Volume 11.5 9.4 - 12.3 fL [facility] Neutrophils Percent Auto 58.4 45 - 73 % [facility] Imm Gran Pct Auto 0.2 0.0 - 0.4 % [facility] Lymphocytes Percent Auto 29.6 20 - 40 % [facility] Monocytes Percent Auto 9.4 2 - 11 % [facility] Eosinophils Percent Auto 2.0 0 - 4 % [facility] Basophils Percent Auto 0.4 0 - 2 % [facility] NRBC Pct Auto 0.0 0.0 - 0.2 /100WBC [facility] Neutrophils Absolute Auto 3.2 2.0 - 8.3 x10*3/uL [facility] Imm Gran Abs Auto 0.01 0.00 - 0.03 X10*3/uL [facility] Lymphocytes Absolute Auto 1.6 1.2 - 4.9 X10*3/uL [facility] Monocytes Absolute Auto 0.5 0.1 - 1.2 X10*3/uL [facility] Eosinophils Absolute Auto 0.1 0.0 - 0.4 X10*3/uL [facility] Basophils Absolute Auto 0.0 0.0 - 0.2 X10*3/uL [facility] NRBC Abs Auto 0.000 0.0 - 0.012 X10*3/uL [facility] Blood Venous blood specimen / Unknown 09/02/2024 8:20 AM EDT 09/02/2024 11:09 AM EDT us Kay Tamayo MD LAB BLOOD ORDERABLES Final Res ult [facility] [address] [place] [phone] * C-reactive Protein (09/02/2024 8:20 AM EDT) C Reactive Protein 0.49 < or = 0.50 mg/dL [facility] Blood Venous blood specimen / Unknown 09/02/2024 8:20 AM EDT 09/02/2024 11:09 AM EDT us Kay Tamayo MD LAB BLOOD ORDERABLES Final Res ult Performing Organization Address [facility] Co de Phone Number [facility] [address] [place] [phone] documented in this encounter Visit Diagnoses Diagnosis Essential hypertension- Primary Unspecified essential hypertension Lupus erythematosus, unspecified form Prediabetes Other abnormal glucose Screening examination for STI documented in this encounter Additional Health Concerns Assessment Noted Time PHQ-9 Depression Total Score: 11 09/11/ 023 2:43 PM EDT documented as of this encounter Care Teams Rim Technician Relationship Specialty Start Date End Date Kay Tamayo MD [address] [place] [phone] PCP - General Family Medicine 11/01/20 documented as of this encounter
--- OUTSIDE RECORDS SUMMARY | 2024-12-16 12:17 | XMS_ITS | Encounter Summary ---
Author Organization [employer] Address [address] [facility] 7t [place] [address] Care Team Providers Care Nylon Hot Wire Cutter Name Role Phone Kay Tamayo MD Primary Care Provider [phone] Encounter Details Date Type Department Care Team (Latest Contact Info) Description 11/25/2019 Abstract [facility] CONVERSIONS Dental, Provider, DDS Social History Tobacco Use Types Packs/Day Years Used Date Smoking Tobacco: Never Assessed Comments Unknown Sex and Gender Information Value [...] Description 12/26/2024 10:00 AM EST Office Visit [facility] OPTOMETRY [address] [place] [address] Alina Cates, OD [address] [place] [address] 12/30/2024 11:00 AM EST Office Visit [facility] MEDICINE [address] [place] [address] Kay Tamayo MD [address] [place] [address] 01/04/2025 9:00 AM EST Office Visit [facility] ADULT DENTAL [address] [place] [address] Susana Fink [address] [place] [address] documented as of this encounter Visit Diagnoses Not on filedocumented in this encounter Care Teams Nylon Hot Wire Cutter Relationship Specialty Start Date End Date Kay Tamayo MD [address] [place] [address] PCP - General Family Medicine 11/01/20 documented as of this encounter
--- OUTSIDE RECORDS SUMMARY | 2024-12-16 12:17 | XMS_ITS | Encounter Summary ---
Author Organization [employer] Address [address] [facility] 7t [place] [address] Care Team Providers Care Emergency Room Technician Name Role Phone Kay Tamayo MD Primary Care Provider [phone] Reason for Visit * Reason Onset Date Comments No Show 11/18/2024 Encounter Details Date Type Department Care Team ([facility] st Contact Info) Description 11/18/2024 Telephone [facility] MEDICINE [address] [place], [place] [phone] Kay Tamayo MD [address] [place], [place] [phone] No Show Social History Tobacco Use Types Packs/Day Years [...] AM EDT documented as of this encounter Miscellaneous Notes * Telephone Encounter - Zenaida Carlton - 11/18/2024 3:17 PM EST Pt no showed to appt on 11/18/24 documented in this encounter Plan of Treatment Upcoming Encounters Date Type Department Care Team (Late st Contact Info) Description 12/26/2024 10:00 AM EST Office Visit [facility] OPTOMETRY [address] [place] [address] Alina Cates, OD [address] [place] [address] 12/30/2024 11:00 AM EST Office Visit [facility] MEDICINE [address] [place] [address] Kay Tamayo MD [address] [place] [address] 01/04/2025 9:00 AM EST Office Visit [facility] ADULT DENTAL [address] [place] [address] Susana Fink [address] [place] [address] documented as of this encounter Visit Diagnoses Not on filedocumented in this encounter Additional Health Concerns Assessment Noted Time PHQ-9 Depression Total Score: 11 023 2:43 PM EDT documented as of this encounter Care Teams Emergency Room Technician Relationship Specialty Start Date End Date Kay Tamayo MD [address] [place] [address] PCP - General Family Medicine 11/01/20 documented as of this encounter
--- OUTSIDE RECORDS SUMMARY | 2024-12-16 12:17 | XMS_ITS | Encounter Summary ---
Author Organization [employer] [facility] Address [address] [facility] 7t [place] [address] Care Team Providers Care Custom Van Converter Name Role Phone Kay Tamayo MD Primary Care Provider [phone] Encounter Details Date Type Department Care Team (Late st Contact Info) Description 07/29/2023 Orders Only [facility] MEDICINE [address] [place] [phone] ProviderTamiko MD Social History Tobacco Use Types Packs/Day Years Used Date Smoking Tobacco: Never Passive Smoke Exposure: Never Smokeless Tobacco: Never Comments Unknown Sex and Gender Information Value [...] Description 12/26/2024 10:00 AM EST Office Visit [facility] OPTOMETRY [address] [place] [address] Alina Cates, OD [address] [place] [address] 12/30/2024 11:00 AM EST Office Visit [facility] MEDICINE [address] [place] [phone] Kay Tamayo MD [address] [place] [address] 01/04/2025 9:00 AM EST Office Visit [facility] ADULT DENTAL [address] [place] [address] Susana Fink [address] [place] [address] documented as of this encounter Procedures Procedure Name Priority Date/Time Associated Diagnosis Comments HM COLONOSCOPY Routine 05/29/2016 documented in this encounter Results * Hm Colonoscopy (05/29/2016) Historical Provider HEALTH MAINTENANCE Final Result documented in this encounter Visit Diagnoses Not on filedocumented in this encounter Care Teams Custom Van Converter Relationship Specialty Start Date End Date Kay Tamayo MD [address] [place] [address] PCP - General Family Medicine 11/01/20 documented as of this encounter
--- OUTSIDE RECORDS SUMMARY | 2024-12-16 12:17 | XMS_ITS | Encounter Summary ---
Author Organization [employer] Address [address] [facility] 7t [place] [address] Care Team Providers Care Subpoena Server Name Role Phone Kay Tamayo MD Primary Care Provider [phone] Encounter Details Date Type Department Care Team (Latest Contact Info) Description 08/22/[address] [facility] CONVERSIONS Dental, Provider, DDS Social History [...] Description 12/26/2024 10:00 AM EST Office Visit [facility] OPTOMETRY [address] [place] [address] Alina Cates, OD [address] [place] [address] 12/30/2024 11:00 AM EST Office Visit [facility] MEDICINE [address] [place] [address] Kay Tamayo MD [address] [place] [address] 01/04/2025 9:00 AM EST Office Visit [facility] ADULT DENTAL [address] [place] [address] Susana Fink [address] [place] [address] documented as of this encounter Visit Diagnoses Not on filedocumented in this encounter Care Teams Subpoena Server Relationship Specialty Start Date End Date Kay Tamayo MD [address] [facility] [place] [address] PCP - General Family Medicine 11/01/20 documented as of this encounter
--- OUTSIDE RECORDS SUMMARY | 2024-12-16 12:17 | XMS_ITS | Encounter Summary ---
Author Organization [employer] Address [address] [facility] 7t [place] [address] Care Team Providers Care Senior It Engineer Name Role Phone Kay Tamayo MD Primary Care Provider [phone] Reason for Referral * Imaging (Routine) - Closed Specialty Diagnoses / Procedures Referred By Contac t Referred To Contact Radiology Diagnoses Lumbar foraminal stenosis Procedures MR Lumbar Spine w/o Contrast Kay Tamayo MD [address] [place] [address] Phone: tel: fax: [address] Phone: tel: fax: Referral ID Status Reason Start Date Expiration Date Visits Re quested Visits Authorized [id number] Closed 06/17/2023 06/16/2024 1 1 Encounter Details Date Type Department Care Team (Late st Contact Info) Description 06/17/2023 Orders Only [facility] MEDICINE [address] [place] [address] Kay Tamayo MD [address] [place], [place] [phone] Lumbar foraminal stenosis (Primary Dx) Social History Tobacco Use Types Packs/Day Years [...] PM EDT documented as of this encounter Plan of Treatment Upcoming Encounters Date Type Department Care Team (Late st Contact Info) Description 12/26/2024 10:00 AM EST Office Visit [facility] OPTOMETRY [address] [place] [address] Darryn, Alina, OD [address] [place] [address] 12/30/2024 11:00 AM EST Office Visit [facility] MEDICINE [address] [place] [address] Kay Tamayo MD [address] [place] [address] 01/04/2025 9:00 AM EST Office Visit [facility] ADULT DENTAL [address] [place] [address] Aleks, Susana [address] [place] [address] Scheduled Orders Name Type Priority Associated Diagnoses Orde r Schedule MR Lumbar Spine w/o Contrast Imaging Routine Lumbar foraminal stenosis Expected: 06/17/2023, Expires: 06/17/2024 documented as of this encounter Visit Diagnoses Diagnosis Lumbar foraminal stenosis- Primary documented in this encounter Care Teams Senior It Engineer Relationship Specialty Start Date End Date Kay Tamayo MD [address] [place] [address] PCP - General Family Medicine 11/01/20 documented as of this encounter
[2024-12-16 12:21] LABS: Basophils Percent Auto 0.3 % (0-2); Eosinophils Absolute Auto 0.1 X10*3/uL (0.0-0.4); Eosinophils Percent Auto 1.9 % (0-4); Hematocrit 37.3 % (37.0-47.0); Hemoglobin 12.1 g/dl (12.0-16.0); Imm Gran Abs Auto 0.02 X10*3/uL (0.00-0.03); Imm Gran Pct Auto 0.3 % (0.0-0.4); Lymphocytes Absolute Auto 1.6 X10*3/uL (1.2-4.9); Mean Corpuscular HGB Conc 32.4 g/dl (31.0-35.0); Mean Corpuscular Hemoglobin 26.7 pg (27.0-33.0); Mean Corpuscular Volume 82.2 fL (80.0-98.0); Mean Platelet Volume 11.4 fL (9.4-12.3); Monocytes Absolute Auto 0.6 X10*3/uL (0.1-1.2); Monocytes Percent Auto 9.5 % (2-11); Platelet Count 252 X10*3/uL (160-400); Red Blood Count 4.54 X10*6/uL (4.20-5.50); Red Cell Distribution Width 13.3 % (11.0-16.0); White Blood Count 6.3 X10*3/uL (4.8-10.8)
[2024-12-16 12:37] LABS: Appearance Urine Clear; Color Urine Yellow; Glucose Urine UA Negative (Negative); Leukocyte Esterase Urine Negative (Negative); Nitrite Urine Negative (Negative); PH 5.5 (5.0-9.0); Specific Gravity - Urine 1.025 (1.005-1.025); Urine Blood Negative (Negative); Urine Ketones Negative (Negative); Urine Protein Negative (Neg-Trace)
[2024-12-16 12:46] LABS: Bacteria Urine 1+ (None Seen); Hyaline Casts Urine 0-2 /LPF (0-2)
[2024-12-16 13:01] LABS: Erythrocyte Sedimentation Rate 27 MM/HR (0-20)
[2024-12-16 13:35] LABS: Creatinine Urine 195.42 mg/dL; Protein/Creatinine Ratio, Ur 0.06 (<0.2); Total Protein Urine Random 11 mg/dL (<12)
[2024-12-16 15:38] LABS: Alanine Aminotransferase 19 U/L (0-31); Albumin Level 3.9 g/dL (3.5-5.0); Alkaline Phosphatase 63 U/L (39-117); Anion Gap 13 (12-20); Aspartate Amino Transferase 19 U/L (5-31); Bilirubin Total 0.7 mg/dL (0.0-1.0); Blood Urea Nitrogen 11 mg/dL (9-16); C Reactive Protein 0.72 mg/dL (< or = 0.50); Calcium 9.8 mg/dL (8.4-10.2); Carbon Dioxide 24 mmol/L (22-29); Chloride 108 mmol/L (96-108); Estimated Glomerular Filt Rate > 60; Glucose Random 89 mg/dL (60-115); Sodium 141 mmol/L (135-145); Total Protein 7.7 g/dL (6.5-8.0)
[2024-12-19 08:58] LABS: Complement C3 162 mg/dL (83-193)
[2024-12-19 15:55] LABS: Anti Nuclear Antibody Screen NEGATIVE (NEGATIVE)
[2024-12-20 15:08] LABS: DNAds, Crithidia Antibody Negative (Negative)
[2024-12-20 15:23] LABS: Anti DNA DS Antibody 1 IU/mL; Antibody to SS-A Antigen <1.0 NEG AI (<1.0 NEG); Antibody to SS-B Antigen <1.0 NEG AI (<1.0 NEG); SM/Ribonucleoprotein Ab <1.0 NEG AI (<1.0 NEG); Smith Protein <1.0 NEG AI (<1.0 NEG)
[2024-12-21 22:54] LABS: PTT (LAC) Screen 32 sec (<=40)
== END 2024-12-16 10:43 | disposition home or self-care (01) ==
LOC: HO.LAB 10:42
PROVIDERS: PCP Family Medicine; Visit Provider Student in an Organized Health Care Education/Training Program
DX: M79.7 Fibromyalgia (principal); M32.9 Systemic lupus erythematosus, unspecified
CPT/HCPCS: 36415; 80053; 81001; 82570; 84156; 85025; 85597; 85598; 85613; 85652; 85730; 86038; 86140; 86160; 86225; 86235; 86255

== ENCOUNTER 2024-12-22 10:31 | Outpatient (REF) | payer OTHER, SELFPAY ==
[2024-12-22 12:09] LABS: Appearance Urine Cloudy; Color Urine Yellow; Glucose Urine UA Negative (Negative); Leukocyte Esterase Urine Negative (Negative); Nitrite Urine Negative (Negative); PH 6.5 (5.0-9.0); Specific Gravity - Urine 1.025 (1.005-1.025); Urine Blood Negative (Negative); Urine Ketones Negative (Negative); Urine Protein Negative (Neg-Trace)
[2024-12-22 12:25] LABS: Bacteria Urine 1+ (None Seen); Hyaline Casts Urine 0-2 /LPF (0-2); RBC Urine 0-2 /HPF (0-2); Transitional Epi Cells Urine Present; WBC Urine 0-5 /HPF (0-5)
--- OUTSIDE RECORDS SUMMARY | 2024-12-22 14:07 | XMS_ITS | Encounter Summary ---
Author Organization [employer] Address [address] [facility] [address]t [place] [address] Care Team Providers Care Clinical Transplant Coordinator Name Role Phone Kay Tamayo MD Primary Care Provider [phone] Reason for Visit * Reason Comments Care Coordination CHW outreach for SDO H food needs-referral completed Encounter Details Date Type Department Care Team (Latest Contact Info) Description 12/19/2024 Patient Outreach [facility] MEDICINE [address] [place] [address] Kay Tamayo MD [address] [place] [address] Care Coordination (CHW outreach for SDOH food needs-referral completed /) Social History Tobacco Use Types Packs/Day Years [...] your housing situation today? I have fariba hal 04/12/[address] you li ve. Do you have problems with any of the following? None of the above 04/12/2024 Food Insecurity Answer Date Recorded Within the past 12 months, y ou worried that your food would run out before you got money to buy more: Sometimes True 2024 Within the past 12 months,th e food you bought just didn't last and you didn't have enough money to get more: Sometimes True 12/19/2024 Transportation Answer Date Recorded In the past [...] Recorded Patient Health Questionnaire-2 Score 2 09/11/2023 Internet Access Answer Date Recorded Internet Access Q1 Yes 12/19/2024 Internet Access Q2 Not on file 12/19/2024 Comments Unknown Sex and Gender Information Value Date Recorded Sex Assigned at Female 09/22/2022 10:16 AM EDT Legal Sex Female 10:16 AM EDT Gender Identity Female 09/22/2022 10:16 AM EDT Sexual Orientation Straight 09/22/2022 10 :16 AM EDT documented as of this encounter Progress Notes * Robert Rodriguez - 12/19/2024 2:20 PM EST CHW Robert Rodriguez, placed outbound call to patient for assistance with SDOH as a referral was received by the provider. Patient's name and were confirmed. Patient screened positive for the following SDOH food insecurities. CHW referral patient to the local list of pantries in the area for help. PT-1 requested was send out in behalf of patient for futures appt. Patient verbalizes understandin g, and able to agree with plan to follow up. Patient educated on extended clinic hours on Mondays through Wednesdays, and Walk-In Urgent Care Located in [facility]. Patient provided with after-hours line for [facility], , which offer night time triage service and option to transfer to agronomy technician provider if needed. documented in this encounter Plan of Treatment Upcoming Encounters Date Type Department Care Team (Late st Contact Info) Description 12/26/2024 10:00 AM EST Office Visit [facility] OPTOMETRY [address] [place] [address] Alina Cates OD [address] [place] [address] 12/30/2024 11:00 AM EST Office Visit [facility] MEDICINE [address] [place] [address] Kay Tamayo MD [address] [place] [address] 01/04/2025 9:00 AM EST Office Visit [facility] ADULT DENTAL [address] [place] [address] Aleks, Susana [address] [place] [address] documented as of this encounter Visit Diagnoses Not on filedocumented in this encounter Additional Health Concerns Assessment Noted Time PHQ-9 Depression Total Score: 11 09/11/ 023 2:43 PM EDT documented as of this encounter Care Teams Clinical Transplant Coordinator Relationship Specialty Start Date End Date Kay Tamayo MD [address] [place] [phone] PCP - General Family Medicine 11/01/20 documented as of this encounter
--- OUTSIDE RECORDS SUMMARY | 2024-12-22 14:07 | XMS_ITS | Encounter Summary ---
Author Organization [employer] Address [address] [facility] 7[address] [place] [address] Care Team Providers Care Management Developer Name Role Phone Kay Tamayo MD Primary Care Provider [phone] Encounter Details Date Type Department Care Team ([facility] st Contact Info) Description 08/05/2024 Orders Only [facility] MEDICINE [address] [place], [place] [phone] Kay Tamayo MD [address] [place], [place] [phone] Essential hypertension (Primary Dx); Lupus erythematosus, unspecified [...] Description 12/26/2024 10:00 AM EST Office Visit [facility] OPTOMETRY [address] [place] [address] Darryn, Alina, OD [address] [place] [address] 12/30/2024 11:00 AM EST Office Visit [facility] MEDICINE [address] [place] [address] Kay Tamayo MD [address] [place] [address] 01/04/2025 9:00 AM EST Office Visit [facility] ADULT DENTAL [address] [place] [address] Aleks, Susana [address] [place] [address] documented as of this encounter Procedures Procedure [...] Generation, with Reflexes (09/02/2024 8:20 AM EDT) Pathologist [facility] HIV AB/AG Nonreactive Nonreactive [facility] Comment:HIV-1 p24 Ag and/or HIV-1/HIV-2 Ab not detected.A test result that is nonreactive does not exclude thepossibility of exposure to or infection with HIV-1 and/orHIV-2. Nonreactive results in this assay for individualswith prior exposure to HIV-1 and/or HIV-2 may be due toantigen and antibody levels that are below the limit ofdetection of this assay.The [employer] HIV Ag/Ab Combo assay result andsupplemental assay results should be interpreted inconjunction with the patient's clinical presentation,history and other laboratory results. If the results areinconsistent with clinical evidence, additional testing issuggested to confirm the result. Blood Venous blood specimen / Unknown 09/02/2024 8:20 AM EDT 09/02/2024 11:09 AM EDT us Kay Tamayo MD LAB BLOOD ORDERABLES Final Res ult [facility] [address] [place] [phone] * Hepatitis C Antibody with Reflex to HCV, RNA, Quantitative, Real-Time PCR (09/02/2024 8:20 AM EDT) Pathologist [facility] Hepatitis C Antibody Nonreactive Nonreactive [facility] Comment:Antibodies to HCV no t detected; does not exclude early acuteHCV infection. Blood Venous blood specimen / Unknown 09/02/2024 8:20 AM EDT 09/02/2024 11:09 AM EDT Kay Tamayo MD LAB BLOOD ORDERABLES Final Res ult Performing Organization Address [facility] Co de Phone Number [facility] [address] [place] [address] [phone] * Hemoglobin A1c (09/02/2024 8:20 AM EDT) Hemoglobin A1c 6.0 <6.0 % [facility] Comment:Hemoglobin A1C Refer ence Range Adults: 4.8 - 6.0 % Non diabetic: < 6.0 % Goal: < 7.0 %Additional Action Suggested: > 8.0 %Note: Hemoglobin A1c results are invalid for patients with abnormal amounts of HbF. Blood transfusions may impact the HbA1c concentration in the patient sample. Estimated Average Glucose 126 mg/dL [facility] Comment:eAG = Estimated ave rage glucose which is %A1C expressed asaverage glucose, using the formula of the Z8X-MoresgwXumjfcm Glucose study (ADAG), Diabetes Care, Vol.31,#8,Jun. 2007 Blood Venous blood specimen / Unknown 09/02/2024 8:20 AM EDT 09/02/2024 11:09 AM EDT Kay Tamayo MD LAB BLOOD ORDERABLES Final Res ult Performing Organization Address [facility] Co de Phone Number [facility] [address] [place] [address] [phone] * (ABNORMAL) Comprehensive Metabolic Panel (09/02/2024 8:20 AM EDT) Sodium 139 135 - 145 mmol/L [facility] Potassium 3.9 3.3 - 5.1 mmol/L [facility] Chloride 106 96 - 108 mmol/L [facility] Carbon Dioxide 28 22 - 29 mmol/L [facility] Anion Gap 9(L) 12 - 20 [facility] Urea Nitrogen (BUN) 12 9 - 16 mg/dL [facility] Creatinine, Serum 0.73 0.5 - 1.4 mg/dL [facility] Estimated Glomerular Filt Rate >60 [facility] Comment:NOTE: For -Am erican individuals, multiply the result by 1.210.Chronic Kidney Disease: Estimated GFR < 60 mL/min/1.43y8Cyxgek Kidney Disease: Estimated GFR < 15 mL/min/1.73m2 Glucose 104 60 - 115 mg/dL [facility] Calcium 9.7 8.4 - 10.2 mg/dL [facility] Bilirubin, Total 0.8 0.0 - 1.0 mg/dL [facility] Aspartate Amino Transferase 17 5 - 31 U/L [facility] Alanine Aminotransferase 16 0 - 31 U/L [facility] Total Protein 7.3 6.5 - 8.0 g/dL [facility] Albumin Level 3.9 3.5 - 5.0 g/dL [facility] Alkaline Phosphatase 61 39 - 117 U/L [facility] Blood Venous blood specimen / Unknown 09/02/2024 8:20 AM EDT 09/02/2024 11:09 AM EDT us Kay Tamayo MD LAB BLOOD ORDERABLES Final Res ult [facility] [address] [place] [phone] * (ABNORMAL) CBC auto differential (09/02/2024 8:20 AM EDT) White Blood Count 5.4 4.8 - 10.8 X10*3/uL [facility] Red Blood Count 4.50 4.20 - 5.50 X10*6/uL [facility] Hemoglobin 12.0 12.0 - 16.0 g/dl [facility] Hematocrit 37.4 37.0 - 47.0 % [facility] Mean Corpuscular Volume 83.1 80.0 - 98.0 fL [facility] Mean Corpuscular Hemoglobin 26.7(L) 27.0 - 33.0 pg [facility] Mean Corpuscular HGB Conc 32.1 31.0 - 35.0 g/dl [facility] Red Cell Distribution Width 14.1 11.0 - 16.0 % [facility] Platelet Count 267 160 - 400 X10*3/uL [facility] Mean Platelet Volume 11.5 9.4 - 12.3 fL [facility] Neutrophils Percent Auto 58.4 45 - 73 % [facility] Imm Gran Pct Auto 0.2 0.0 - 0.4 % [facility] Lymphocytes Percent Auto 29.6 20 - 40 % [facility] Monocytes Percent Auto 9.4 2 - 11 % [facility] Eosinophils Percent Auto 2.0 0 - 4 % [facility] Basophils Percent Auto 0.4 0 - 2 % [facility] NRBC Pct Auto 0.0 0.0 - 0.2 /100WBC [facility] Neutrophils Absolute Auto 3.2 2.0 - 8.3 x10*3/uL [facility] Imm Gran Abs Auto 0.01 0.00 - 0.03 X10*3/uL [facility] Lymphocytes Absolute Auto 1.6 1.2 - 4.9 X10*3/uL [facility] Monocytes Absolute Auto 0.5 0.1 - 1.2 X10*3/uL [facility] Eosinophils Absolute Auto 0.1 0.0 - 0.4 X10*3/uL [facility] Basophils Absolute Auto 0.0 0.0 - 0.2 X10*3/uL [facility] NRBC Abs Auto 0.000 0.0 - 0.012 X10*3/uL [facility] Blood Venous blood specimen / Unknown 09/02/2024 8:20 AM EDT 09/02/2024 11:09 AM EDT us Kay Tamayo MD LAB BLOOD ORDERABLES Final Res ult Performing Organization Address City/[facility] Co de Phone Number [facility] [address] [place] [address] [phone] * C-reactive Protein (09/02/2024 8:20 AM EDT) C Reactive Protein 0.49 < or = 0.50 mg/dL [facility] Blood Venous blood specimen / Unknown 09/02/2024 8:20 AM EDT 09/02/2024 11:09 AM EDT us Kay Tamayo MD LAB BLOOD ORDERABLES Final Res ult Performing Organization Address [facility] Co de Phone Number [facility] [address] [place] [address] [phone] documented in this encounter Visit Diagnoses Diagnosis Essential hypertension- Primary Unspecified essential hypertension Lupus erythematosus, unspecified form Prediabetes Other abnormal glucose Screening examination for STI documented in this encounter Additional Health Concerns Assessment Noted Time PHQ-9 Depression Total Score: 11 09/11/2 023 2:43 PM EDT documented as of this encounter Care Teams Management Developer Relationship Specialty Start Date End Date Kay Tamayo MD [address] [place] [address] PCP - General Family Medicine 11/01/20 documented as of this encounter
--- OUTSIDE RECORDS SUMMARY | 2024-12-22 14:07 | XMS_ITS | Encounter Summary ---
Author Organization [email or web address] [facility] Address [address] [facility] [address] [place] [address] Care Team Providers Care Mri Supervisor Name Role Phone Kay Tamayo MD Primary Care Provider [phone] Encounter Details Date Type Department Care Team (Late st Contact Info) Description 07/29/2023 Orders Only [facility] MEDICINE [address] [place] [phone] ProviderTamiko MD Social History Tobacco Use Types [...] 12/26/2024 10:00 AM EST Office Visit [facility] OPTOMETRY [address] [place] [address] Alina Cates, OD [address] [place] [address] 12/30/2024 11:00 AM EST Office Visit [facility] MEDICINE [address] [place] [phone] Kay Tamayo MD [address] [place] [address] 01/04/2025 9:00 AM EST Office Visit [facility] ADULT DENTAL [address] [place] [address] Susana Fink [address] [place] [address] documented as of this encounter Procedures Procedure Name Priority Date/Time Associated Diagnosis Comments HM COLONOSCOPY Routine 05/29/2016 documented in this encounter Results * Hm Colonoscopy (05/29/2016) Historical Provider HEALTH MAINTENANCE Final Result documented in this encounter Visit Diagnoses Not on filedocumented in this encounter Care Teams Mri Supervisor Relationship Specialty Start Date End Date Kay Tamayo MD [address] [place] [address] PCP - General Family Medicine 11/01/20 documented as of this encounter
--- OUTSIDE RECORDS SUMMARY | 2024-12-22 14:07 | XMS_ITS | Encounter Summary ---
Author Organization [facility] Address [address] [facility] 7 [place] [address] Care Team Providers Care Geriatrics Physician Name Role Phone Kay Tamayo MD Primary Care Provider [phone] Encounter Details Date Type Department Care Team (Latest Contact Info) Description 11/25/2019 Abstract [facility] CONVERSIONS Dental, Provider, DDS Social History [...] Description 12/26/2024 10:00 AM EST Office Visit [facility] OPTOMETRY [address] [place] [address] Alina Cates, OD [address] [place] [address] 12/30/2024 11:00 AM EST Office Visit [facility] MEDICINE [address] [place] [address] Kay Tamayo MD [address] [place] [address] 01/04/2025 9:00 AM EST Office Visit [facility] ADULT DENTAL [address] [place] [address] Susana Fink [address] [place] [address] documented as of this encounter Visit Diagnoses Not on filedocumented in this encounter Care Teams Geriatrics Physician Relationship Specialty Start Date End Date Kay Tamayo MD [address] [place] [address] PCP - General Family Medicine 11/01/20 documented as of this encounter
--- OUTSIDE RECORDS SUMMARY | 2024-12-22 14:07 | XMS_ITS | Encounter Summary ---
Author Organization [employer] Address [address] [facility] [address] [place] [address] Care Team Providers Care Bulk Station Operator Name Role Phone Kay Tamayo MD Primary Care Provider [phone] Reason for Visit * Reason Onset Date Comments Nurse Triage 05/07/2023 Encounter Details Date Type Department Care Team ([facility] st Contact Info) Description 05/07/2023 Telephone [facility] MEDICINE [address] [place] [address] Kay Tamayo MD [address] [place] [address] Nurse Triage Social History Tobacco Use Types [...] 05/07/2023 9:40 AM EDT Triage call with [employer] [place] [id number] Pt reports bad back pain for last 2 weeks. Pt finds it hard to stand and walk. Back pain is located in lower back. Pt has tried ice /heat and is taking ibuprofen 800 mg which does help some. Pt reports pain radiates to left leg. Pt is advised to come to [facility] to be seen by provider and Pt [...] caller accepted this outcome Please contact at [phone] [place] documented in this encounter Plan of Treatment Upcoming Encounters Date Type Department Care Team (Late st Contact Info) Description 12/26/2024 10:00 AM EST Office Visit [facility] OPTOMETRY [address] [place] [address] Alina Cates, OD [address] [place] [address] 12/30/2024 11:00 AM EST Office Visit [facility] MEDICINE [address] [place] [address] Kay Tamayo MD [address] [place] [address] 01/04/2025 9:00 AM EST Office Visit [facility] ADULT DENTAL [address] [place] [address] Aleks, Susana [address] [place] [address] documented as of this encounter Visit Diagnoses Not on filedocumented in this encounter Care Teams Bulk Station Operator Relationship Specialty Start Date End Date Kay Tamayo MD [address] [place] [address] PCP - General Family Medicine 11/01/20 documented as of this encounter
--- OUTSIDE RECORDS SUMMARY | 2024-12-22 14:07 | XMS_ITS | Encounter Summary ---
Author Organization [employer] Address [address] [facility] 7t [place] [address] Care Team Providers Care Endoscopy Tech Name Role Phone Kay Tamayo MD Primary Care Provider [phone] Encounter Details Date Type Department Care Team (Late st Contact Info) Description 12/16/2024 Orders Only GENERIC EXTERNAL DATA DEPARTMENT Provider, Generic External Data Social History Tobacco Use Types Packs/Day Years [...] 12/26/2024 10:00 AM EST Office Visit [facility] OPTOMETRY [address] [place] [address] Alina Cates, OD [address] [place] [address] 12/30/2024 11:00 AM EST Office Visit [facility] MEDICINE [address] [place] [address] Kay Tamayo MD [address] [place] [address] 01/04/2025 9:00 AM EST Office Visit [facility] ADULT DENTAL [address] [place] [address] Jong Finkaris [address] [place] [address] documented as of this encounter Procedures Procedure Name Priority Date/Time Associated Diagnosis Comments DNA (DS) ANTIBODY, CRITHIDIA IFA WITH REFLEX TO TITER Routine 12/16/2024 11:02 AM EST SM AND SM/CUSTOMER ENERGY SPECIALIST ANTIBODIES Routine 12/16/2024 11:02 AM EST SJOGREN'S ANTIBODIES (SS-A,SS-B) Routine 12/16/2024 11:02 AM EST CBC WITH AUTO DIFFERENTIAL Routine 12/16/2024 11:02 AM EST DNA (DS) ANTIBODY Routine 12/16/2024 11: 02 AM EST LUPUS ANTICOAGULANT EVALUATION WITH REFLEX Routine 12/16/2024 11:02 AM EST SED RATE BY MODIFIED WESTERGREN Routine 12/16/2024 11:02 AM EST COMPLEMENT COMPONENT C3C Routine 12/16/2024 11:02 AM EST COMPLEMENT COMPONENT C4C Routine 12/16/2024 11:02 AM EST C-REACTIVE PROTEIN Routine 12/16/2024 11 :02 AM EST RICCO SCREEN, IFA, W/REFL TITER AND PATTERN Routine 12/16/2024 11:02 AM EST COMPREHENSIVE METABOLIC PANEL Routine 12/16/2024 11:02 AM EST PROTEIN CREATININE RATIO, URINE Routine 12/16/2024 10:55 AM EST URINALYSIS, COMPLETE Routine 12/16/2024 10:55 AM EST documented in this encounter Results * Lupus Anticoagulant Evaluation with Reflex (12/16/2024 11:02 AM EST) Lupus Interpretation see note [facility] Comment:A Lupus Anticoagulan t is not detected.Reference Range: Not DetectedFor additional information, please refer tohttp://education.Shots/faq/FPM91f7(This link is being provided for informational/educational purposes only.)This interpretation is based on the following testresults. PTT (LAC) Screen 32 <=40 sec [facility] DRVVT Screen 31 <=45 sec [facility] Comment:THIS TEST WAS PERFOR MED AT:[facility] [id number] [place] [address]UVXRYQSMAGAN KOTHARI MD,PHD dRVVT Confirmation TNP [facility] dRVVT 1:1 Mix TNP [facility] DRVVT 1:1 Mix Interpretation [facility] Hexagonal Phase Neutralization [facility] Thrombin Clotting Time [facility] 12/16/2024 11:0 2 AM EST 12/16/2024 11:02 AM EST us Generic External Data Provider LAB BLOOD ORDERAB LES Final Result Performing Organization Address [facility] Co de Phone Number [facility] [address] [place] [phone] * DNA (ds) Antibody (12/16/2024 11:02 AM EST) Anti DNA DS Antibody 1 IU/mL [facility] Comment:IU/mL Interpretation < or = 4 Negative 5-9 Indeterminate > or = 10 PositiveTHIS TEST WAS PERFORMED AT:[facility] [address] [phone] HAZEL MD 12/16/2024 11:0 2 AM EST 12/16/2024 11:02 AM EST us Generic External Data Provider LAB BLOOD ORDERAB LES Final Result Performing Organization Address [facility] Number [facility] [address] [place] [phone] * Sm and Sm/CUSTOMER ENERGY SPECIALIST Antibodies (12/16/2024 11:02 AM EST) SM Antibody <1.0 NEG <1.0 NEG [facility] SM/CUSTOMER ENERGY SPECIALIST Antibody <1.0 NEG <1.0 NEG [facility] Comment:THIS TEST WAS PERFOR MED AT:[facility] [address] [id number] HAZEL MD 12/16/2024 11:0 2 AM EST 12/16/2024 11:02 AM EST us Generic External Data Provider LAB BLOOD ORDERAB LES Final Result Performing Organization Address [facility] Co de Phone Number [facility] [address] [place] [phone] * Sjogren's Antibodies (SS-A,SS-B) (12/16/2024 11:02 AM EST) Sjogren's Antibody (SS-A) <1.0 NEG <1.0 NEG AI [facility] Sjogren's Antibody (SS-B) <1.0 NEG <1.0 NEG AI [facility] Comment:THIS TEST WAS PERFOR MED AT:[facility] [address] [phone] HAZEL MD 12/16/2024 11:0 2 AM EST 12/16/2024 11:02 AM EST us Generic External Data Provider LAB BLOOD ORDERAB LES Final Result Performing Organization Address [facility] Co de Phone Number [facility] [address] [place] [phone] * DNA (ds) Antibody, Crithidia IFA with Reflex to Titer (12/16/2024 11:02 AM EST) DNA AB(DS) Crithidia, IFA Negative Negative [facility] Comment:THIS TEST WAS PERFOR MED AT:[facility] [place] [address]QABHHUYMAGAN KOTHARI MD,PHD DNA AB (DS) CRITHIDIA, ADDITIONAL TESTING [facility] DNA (DS) Antibody Crithidia [facility] 12/16/2024 11:0 2 AM EST 12/16/2024 11:02 AM EST us Generic External Data Provider LAB BLOOD ORDERAB LES Final Result Performing Organization Address City/[facility]/ZIP Co de Phone Number [facility] [address] [place] [phone] * RICCO Screen,IFA, with Reflex to Titer and Pattern (12/16/2024 11:02 AM EST) Anti Nuclear Antibody Screen NEGATIVE NEGATIVE [facility] Comment:RICCO IFA is a first l ine screen for detecting thepresence of up to approximately 150 autoantibodies invarious autoimmune diseases. A negative RICCO IFA resultsuggests an RICCO-associated autoimmune disease is notpresent at this time, but is not definitive. If thereis high clinical suspicion for Sjogren's syndrome,testing for anti-SS-A/Ro antibody should be considered.Anti-Lauren-1 antibody should be considered for clinicallysuspected inflammatory myopathies.AC-0: NegativeInternational Consensus on RICCO Patterns(https://doi.org/10.1515/dykc-6791-8880)For additional information, please refer tohttp://education.[employer]/faq/KCN179(This link is being provided for informational/educational purposes only.)THIS TEST WAS PERFORMED AT:[employer] [place] [phone] HAZEL MD RICCO Titer TNP [facility] RICCO Pattern [facility] RICCO TITER 2 (REF LAB) [facility] RICCO Pattern 2 [facility] RICCO TITER 3 [facility] RICCO PATTERN 3 [facility] 12/16/2024 11:0 2 AM EST 12/16/2024 11:02 AM EST us Generic External Data Provider LAB BLOOD ORDERAB LES Final Result [facility] [address] [place] [address] [phone] * Complement Component C4c (12/16/2024 11:02 AM EST) Complement C4 37 15 - 57 mg/dL [facility] Comment:THIS TEST WAS PERFOR MED AT:[employer] [place] [phone] HAZEL MD 12/16/2024 11:0 2 AM EST 12/16/2024 11:02 AM EST us Generic External Data Provider LAB BLOOD ORDERAB LES Final Result Performing Organization Address [facility]/ZIP Co de Phone Number [facility] [address] [place] [phone] * Complement Component C3c (12/16/2024 11:02 AM EST) Complement C3 162 83 - 193 mg/dL [facility] Comment:THIS TEST WAS PERFOR MED AT:[employer] [place] [phone] HAZEL MD 12/16/2024 11:0 2 AM EST 12/16/2024 11:02 AM EST us Generic External Data Provider LAB BLOOD ORDERAB LES Final Result Performing Organization Address [facility] Co de Phone Number [facility] [address] [place] [phone] * (ABNORMAL) C-reactive Protein (12/16/2024 11:02 AM EST) Pathologist [facility] C Reactive Protein 0.72(H) < or = 0.50 mg/dL [facility] 12/16/2024 11:0 2 AM EST 12/16/2024 11:02 AM EST us Generic External Data Provider LAB BLOOD ORDERAB LES Final Result Performing Organization Address [facility] Co de Phone Number [facility] [address] [place] [phone] * Comprehensive Metabolic Panel (12/16/2024 11:02 AM EST) Sodium 141 135 - 145 mmol/L [facility] Potassium 4.0 3.3 - 5.1 mmol/L [facility] Chloride 108 96 - 108 mmol/L [facility] Carbon Dioxide 24 22 - 29 mmol/L [facility] Anion Gap 13 12 - 20 [facility] Urea Nitrogen (BUN) 11 9 - 16 mg/dL [facility] Creatinine, Serum 0.59 0.5 - 1.4 mg/dL [facility] Estimated Glomerular Filt Rate >60 [facility] Comment:Chronic Kidney Disea se: Estimated GFR < 60 mL/min/1.99y6Ediulu Kidney Disease: Estimated GFR < 15 mL/min/1.73m2 Glucose 89 60 - 115 mg/dL [facility] Calcium 9.8 8.4 - 10.2 mg/dL [facility] Bilirubin, Total 0.7 0.0 - 1.0 mg/dL [facility] Aspartate Amino Transferase 19 5 - 31 U/L [facility] Alanine Aminotransferase 19 0 - 31 U/L [facility] Total Protein 7.7 6.5 - 8.0 g/dL [facility] Albumin Level 3.9 3.5 - 5.0 g/dL [facility] Alkaline Phosphatase 63 39 - 117 U/L [facility] 12/16/2024 11:0 2 AM EST 12/16/2024 11:02 AM EST us Generic External Data Provider LAB BLOOD ORDERAB LES Final Result [facility] [address] [place] [address] [phone] * (ABNORMAL) Sed Rate by Modified Jolantaren (12/16/2024 11:02 AM EST) Erythrocyte Sedimentation Rate 27(H) 0 - 20 MM/HR [facility] Comment:Patients with polycy themia and many hemoglobin abnormalitiesmay have depressed sed rates whereas patients with anemiamay have elevated sed rates. 12/16/2024 11:0 2 AM EST 12/16/2024 11:02 AM EST us Generic External Data Provider LAB BLOOD ORDERAB LES Final Result [facility] [address] [place], [place] [phone] * (ABNORMAL) CBC auto differential (12/16/2024 11:02 AM EST) White Blood Count 6.3 4.8 - 10.8 X10*3/uL [facility] Red Blood Count 4.54 4.20 - 5.50 X10*6/uL [facility] Hemoglobin 12.1 12.0 - 16.0 g/dl [facility] Hematocrit 37.3 37.0 - 47.0 % [facility] Mean Corpuscular Volume 82.2 80.0 - 98.0 fL [facility] Mean Corpuscular Hemoglobin 26.7(L) 27.0 - 33.0 pg [facility] Mean Corpuscular HGB Conc 32.4 31.0 - 35.0 g/dl [facility] Red Cell Distribution Width 13.3 11.0 - 16.0 % [facility] Platelet Count 252 160 - 400 X10*3/uL [facility] Mean Platelet Volume 11.4 9.4 - 12.3 fL [facility] Neutrophils Percent Auto 63.0 45 - 73 % [facility] Imm Gran Pct Auto 0.3 0.0 - 0.4 % [facility] Lymphocytes Percent Auto 25.0 20 - 40 % [facility] Monocytes Percent Auto 9.5 2 - 11 % [facility] Eosinophils Percent Auto 1.9 0 - 4 % [facility] Basophils Percent Auto 0.3 0 - 2 % [facility] NRBC Pct Auto 0.0 0.0 - 0.2 /100WBC [facility] Neutrophils Absolute Auto 4.0 2.0 - 8.3 x10*3/uL [facility] Imm Gran Abs Auto 0.02 0.00 - 0.03 X10*3/uL [facility] Lymphocytes Absolute Auto 1.6 1.2 - 4.9 X10*3/uL [facility] Monocytes Absolute Auto 0.6 0.1 - 1.2 X10*3/uL [facility] Eosinophils Absolute Auto 0.1 0.0 - 0.4 X10*3/uL [facility] Basophils Absolute Auto 0.0 0.0 - 0.2 X10*3/uL [facility] NRBC Abs Auto 0.000 0.0 - 0.012 X10*3/uL [facility] 12/16/2024 11:0 2 AM EST 12/16/2024 11:02 AM EST Generic External Data Provider LAB BLOOD ORDERAB LES Final Result Performing Organization Address [facility] Co de Phone Number [facility] [address] [place] [address] [phone] * Protein Creatinine Ratio, Urine (12/16/2024 10:55 AM EST) Creatinine, Urine 195.42 mg/dL [facility] Protein, Total, Random Urine 11 <12 mg/dL [facility] Protein/Creati nine Ratio, Ur 0.06 <0.2 [facility] Comment:The spot urine prote in:creatinine ratio may increase to 0.3during normal . 12/16/2024 10:5 5 AM EST 12/16/2024 12:16 PM EST Generic External Data Provider LAB URINE ORDERAB LES Final Result Performing Organization Address [facility] Co de Phone Number [facility] [address] [place] [address] [phone] * (ABNORMAL) Urinalysis Complete (12/16/2024 10:55 AM EST) Color Urine Yellow [facility] Appearance Urine Clear [facility] PH 5.5 5.0 - 9.0 [facility] Glucose Urine UA Negative Negative mg/dL [facility] Urine Blood Negative Negative [facility] Specific [place] - Urine 1.025 1.005 - 1.025 [facility] Urine Protein Negative Neg-Trace mg/dL [facility] Urine Ketones Negative Negative mg/dL [facility] Nitrite Urine Negative Negative [facility] Leukocyte Esterase Urine Negative Negative [facility] RBC Urine 3-5(A) 0 - 2 /HPF [facility] Urine WBC 6-10(A) 0 - 5 /HPF [facility] Urine Squamous Epithelial Cell 11-20 0 - 2 /HPF [facility] Urine Bacteria 1+ None Seen [facility] Hyaline Casts, Urine 0-2 0 - 2 /LPF [facility] 12/16/2024 10:5 5 AM EST 12/16/2024 12:16 PM EST us Generic External Data Provider LAB URINE ORDERAB LES Final Result Performing Organization Address City/[facility] de Phone Number [facility] [address] [place] [phone] documented in this encounter Visit Diagnoses Not on filedocumented in this encounter Additional Health Concerns Assessment Noted Time PHQ-9 Depression Total Score: 11 023 2:43 PM EDT documented as of this encounter Care Teams Endoscopy Tech Relationship Specialty Start Date End Date Kay Tamayo MD [address] [place] [address] PCP - General Family Medicine 11/01/20 documented as of this encounter
--- OUTSIDE RECORDS SUMMARY | 2024-12-22 14:07 | XMS_ITS | Encounter Summary ---
Author Organization [facility] Address [address] [facility] 7 [place] [address] Care Team Providers Care Roll Grinder Name Role Phone Kay Tamayo MD Primary Care Provider [phone] Reason for Referral * Imaging (Routine) - Closed Specialty Diagnoses / Procedures Referred By Contac t Referred To Contact Radiology Diagnoses Lumbar foraminal stenosis Procedures MR Lumbar Spine w/o Contrast Kay Tamayo MD [address] [place] [address] Phone: tel: fax: [address] Phone: tel: fax: Referral ID Status Reason Start Date Expiration Date Visits Re quested Visits Authorized [id number] Closed 06/17/2023 06/16/2024 1 1 Encounter Details Date Type Department Care Team (Late st Contact Info) Description 06/17/2023 Orders Only [facility] MEDICINE [address] [place], [place] [phone] Kay Tamayo MD [address] [place], [place] [phone] Lumbar foraminal stenosis (Primary Dx) Social History [...] AM EST Office Visit [facility] OPTOMETRY [address] [place] [address] DarrynAlina dubois, OD [address] [place] [address] 12/30/2024 11:00 AM EST Office Visit [facility] MEDICINE [address] [place] [address] Kay Tamayo MD [address] [place] [address] 01/04/2025 9:00 AM EST Office Visit [facility] ADULT DENTAL [address] [place] [address] Aleks, Susana [address] [place] [address] Scheduled Orders Name Type Priority Associated Diagnoses Orde r Schedule MR Lumbar Spine w/o Contrast Imaging Routine Lumbar foraminal stenosis Expected: 06/17/2023, Expires: 06/17/2024 documented as of this encounter Visit Diagnoses Diagnosis Lumbar foraminal stenosis- Primary documented in this encounter Care Teams Roll Grinder Relationship Specialty Start Date End Date Kay Tamayo MD [address] [place] [address] PCP - General Family Medicine 11/01/20 documented as of this encounter
--- OUTSIDE RECORDS SUMMARY | 2024-12-22 14:07 | XMS_ITS | Encounter Summary ---
Author Organization [facility] Address [address] [facility] [address] [place] [address] Care Team Providers Care Rug Inspector Helper Name Role Phone Kay Tamayo MD Primary Care Provider [phone] Encounter Details Date Type Department Care Team (Latest Contact Info) Description 08/22/2021 Abstract [facility] CONVERSIONS Dental, Provider, DDS Social History [...] Description 12/26/2024 10:00 AM EST Office Visit [facility] OPTOMETRY [address] [place] [address] Alina Cates, OD [address] [place] [address] 12/30/2024 11:00 AM EST Office Visit [facility] MEDICINE [address] [place] [address] Kay Tamayo MD [address] [place] [address] 01/04/2025 9:00 AM EST Office Visit [facility] ADULT DENTAL [address] [place] [address] Susana Fink [address] [place] [address] documented as of this encounter Visit Diagnoses Not on filedocumented in this encounter Care Teams Rug Inspector Helper Relationship Specialty Start Date End Date Kay Tamayo MD [address] [place] [address] PCP - General Family Medicine 11/01/20 documented as of this encounter
--- OUTSIDE RECORDS SUMMARY | 2024-12-22 14:07 | XMS_ITS | Clinical Summary ---
Author Organization [employer] Address [address] [facility] 7 [place] [address] Care Team Providers Care Chief Nurse Anesthetist Name Role Phone Kay Tamayo MD Primary Care Provider [phone] Allergies Active Allergy Reactions Criticality Noted Date [...] Encounters Date Type Department Care Team Description 12/22/2024 Orders Only GENERIC EXTERNAL DATA DEPARTMENT Provider, Generic External Data 12/19/2024 Patient Outreach [address] [address] Kay Tamayo MD Care Coordination (CHW outreach for SDOH food needs-referral completed /) 12/19/2024 Patient Outreach [address] [address] Kya Tamayo MD Pre-visit Planning (SDOH screening positive and tobacco screening negative) 12/16/2024 Orders Only GENERIC EXTERNAL DATA DEPARTMENT Provider, Generic External Data 11/18/[address] [address] Kay Tamayo MD No Show 11/09/2024 Patient Outreach [address] [address] Kay Tamayo MD Pre-visit Planning (SDOH screening completed on 04/12/2024) 10/31/[address] [phone] Marcie Roman, RN Results 10/30/2024 Orders Only [address] [address] Kay Tamayo MD Microscopic hematuria (Primary Dx) from Last 3 Months Immunizations Name Administration Dates Next Due Influenza injectable quadriv alent IIV4 with preservative 09/30/2019,08/16/2018 Influenza injectable quadrivalent preservative f ree 10/15/2021,09/19/2020 Pfizer Covid-19 Vaccine 12+ 04/08/2022, Pfizer Covid-19 Vaccine 12+ chandra-sucrose (Sunday Hernandez ap) 04/08/2022 Tdap 07/18/2016 Zoster, Recombinant 03/17/2022,01/03/2022 [...] Description 12/26/2024 10:00 AM EST Office Visit [facility] [address] [place] [address] Darryn, Alina, OD [address] [place] [address] 12/30/2024 11:00 AM EST Office Visit [facility] MEDIC[facility] [address] [place] [address] Kay Tamayo MD [address] [place] [address] 01/04/2025 9:00 AM EST Office Visit [facility] [address] [place] [address] Aleks, Susana [address] [place] [address] Health Maintenance Due Date Last Done Comments CT Colonography 1965 FIT DNA/Cologuard 1965 FIT 1965 FOBT 1965 Sigmoidoscopy 1965 Alcohol/Substance Use Screening 1976 Pneumococcal Vaccine: 50+ Years (1 of 1 - PCV) 2014 Colonoscopy 05/29/2021 05/29/2016 Colorectal Cancer Screening 05/29/2021 Depression Monitoring (PHQ-9) 03/12/2024 09/11/2023, 09/11/2023 Pap Smear 03/15/2024 03/15/2021 COVID-19 Vaccine ( season) 2024 04/08/2022, 04/08/2022, 08/22/2021, Additional history exists Influenza Vaccine (#1) 2024 , 09/19/2020, 09/30/2019, Additional history exists Depression Screening 09/11/2024 09/11/2023, 09/11/20 Mammogram 12/15/2024 12/15/2023, 11/23, 12/09/2022, Additional history exists Tobacco Screening 09/01/2025 09/01/2024 Diabetes: Hemoglobin A1C 09/02/2025 024, 01/21/2023, 07/23/2022, Additional history exists SDOH Screening 12/19/2025 12/19/2024 Cervical Cancer Screening 03/15/2026 HPV/Cotest 03/15/2026 03/15/2021 [...] Procedure Name Priority Date/Time Associated Diagnosis Comments URINALYSIS, COMPLETE Routine 12/22/2024 10:50 AM EST LUPUS ANTICOAGULANT EVALUATION WITH REFLEX Routine 12/16/2024 11:02 AM EST DNA (DS) ANTIBODY Routine 12/16/2024 11: 02 AM EST SM AND SM/ROAST MASTER ANTIBODIES Routine 12/16/2024 11:02 AM EST SJOGREN'S ANTIBODIES (SS-A,SS-B) Routine 12/16/2024 11:02 AM EST DNA (DS) ANTIBODY, CRITHIDIA IFA WITH REFLEX TO TITER Routine 12/16/2024 11:02 AM EST RICCO SCREEN, IFA, W/REFL TITER AND PATTERN Routine 12/16/2024 11:02 AM EST COMPLEMENT COMPONENT C4C Routine 12/16/2024 11:02 AM EST COMPLEMENT COMPONENT C3C Routine 12/16/2024 11:02 AM EST C-REACTIVE PROTEIN Routine 12/16/2024 11 :02 AM EST COMPREHENSIVE METABOLIC PANEL Routine 12/16/2024 11:02 AM EST SED RATE BY MODIFIED WESTERGREN Routine 12/16/2024 11:02 AM EST CBC WITH AUTO DIFFERENTIAL Routine 12/16/2024 11:02 AM EST PROTEIN CREATININE RATIO, URINE Routine 12/16/2024 10:55 AM EST URINALYSIS, COMPLETE Routine 12/16/2024 10:55 AM EST HEPATITIS C AB W/REFL TO HCV RNA, [...] Recently Relevant to Health Maintenance Results * Urinalysis Complete (12/22/2024 10:50 AM EST) Only the most recent of2 resultswithin the time period is included. Color Urine Yellow [facility] Appearance Urine Cloudy [facility] PH 6.5 5.0 - 9.0 [facility] Glucose Urine UA Negative Negative mg/dL [facility] Urine Blood Negative Negative [facility] Specific [place] - Urine 1.025 1.005 - 1.025 [facility] Urine Protein Negative Neg-Trace mg/dL [facility] Urine Ketones Negative Negative mg/dL [facility] Nitrite Urine Negative Negative [facility] Leukocyte Esterase Urine Negative Negative [facility] RBC Urine 0-2 0 - 2 /HPF [facility] Urine WBC 0-5 0 - 5 /HPF [facility] Urine Squamous Epithelial Cell 3-5 0 - 2 /HPF [facility] TRANSITIONAL (EPITHELIAL) CELLS (#/HPF) IN URINE Present [facility] Urine Bacteria 1+ None Seen [facility] Hyaline Casts, Urine 0-2 0 - 2 /LPF [facility] 12/22/2024 10:5 0 AM EST 12/22/2024 12:00 PM EST Generic External Data Provider LAB URINE ORDERAB LES Final Result Performing Organization Address [facility] de Phone Number [facility] [address] [place] [phone] * DNA (ds) Antibody, Crithidia IFA with Reflex to Titer (12/16/2024 11:02 AM EST) DNA AB(DS) Crithidia, IFA Negative Negative [facility] Comment:THIS TEST WAS PERFOR MED AT:[employer]/[address] [id number] [place] [address]ETZLMVSMAGAN KOTHARI MD,PHD DNA AB (DS) CRITHIDIA, ADDITIONAL TESTING [facility] DNA (DS) Antibody Crithidia [facility] 12/16/2024 11:0 2 AM EST 12/16/2024 11:02 AM EST Generic External Data Provider LAB BLOOD ORDERAB LES Final Result Performing Organization Address [facility] Co de Phone Number [facility] [address] [place] [phone] * Sm and Sm/ROAST MASTER Antibodies (12/16/2024 11:02 AM EST) SM Antibody <1.0 NEG <1.0 NEG [facility] SM/ROAST MASTER Antibody <1.0 NEG <1.0 NEG [facility] Comment:THIS TEST WAS PERFOR MED AT:[employer] [address] [phone] HAZEL MD 12/16/2024 11:0 2 AM EST 12/16/2024 11:02 AM EST Generic External Data Provider LAB BLOOD ORDERAB LES Final Result Performing Organization Address [facility] de Phone Number [facility] [address] [place] [phone] * Sjogren's Antibodies (SS-A,SS-B) (12/16/2024 11:02 AM EST) Sjogren's Antibody (SS-A) <1.0 NEG <1.0 NEG [facility] Sjogren's Antibody (SS-B) <1.0 NEG <1.0 NEG [facility] Comment:THIS TEST WAS PERFOR MED AT:[employer] [place] [phone] HAZEL MD 12/16/2024 11:0 2 AM EST 12/16/2024 11:02 AM EST Generic External Data Provider LAB BLOOD ORDERAB LES Final Result Performing Organization Address [facility] de Phone Number [facility] [address] [place] [phone] * (ABNORMAL) CBC auto differential (12/16/2024 11:02 AM EST) White Blood Count 6.3 4.8 - 10.8 X10*3/uL [facility] Red Blood Count 4.54 4.20 - 5.50 X10*6/uL [facility] Hemoglobin 12.1 12.0 - 16.0 g/dl [facility] Hematocrit 37.3 37.0 - 47.0 % [facility] Mean Corpuscular Volume 82.2 80.0 - 98.0 fL [facility] Mean Corpuscular Hemoglobin 26.7(L) 27.0 - 33.0 pg [facility] Mean Corpuscular HGB Conc 32.4 31.0 - 35.0 g/dl [facility] Red Cell Distribution Width 13.3 11.0 - 16.0 % [facility] Platelet Count 252 160 - 400 X10*3/uL [facility] Mean Platelet Volume 11.4 9.4 - 12.3 fL [facility] Neutrophils Percent Auto 63.0 45 - 73 % [facility] Imm Gran Pct Auto 0.3 0.0 - 0.4 % [facility] Lymphocytes Percent Auto 25.0 20 - 40 % [facility] Monocytes Percent Auto 9.5 2 - 11 % [facility] Eosinophils Percent Auto 1.9 0 - 4 % [facility] Basophils Percent Auto 0.3 0 - 2 % [facility] NRBC Pct Auto 0.0 0.0 - 0.2 /100WBC [facility] Neutrophils Absolute Auto 4.0 2.0 - 8.3 x10*3/uL [facility] Imm Gran Abs Auto 0.02 0.00 - 0.03 X10*3/uL [facility] Lymphocytes Absolute Auto 1.6 1.2 - 4.9 X10*3/uL [facility] Monocytes Absolute Auto 0.6 0.1 - 1.2 X10*3/uL [facility] Eosinophils Absolute Auto 0.1 0.0 - 0.4 X10*3/uL [facility] Basophils Absolute Auto 0.0 0.0 - 0.2 X10*3/uL [facility] NRBC Abs Auto 0.000 0.0 - 0.012 X10*3/uL [facility] 12/16/2024 11:0 2 AM EST 12/16/2024 11:02 AM EST us Generic External Data Provider LAB BLOOD ORDERAB LES Final Result [facility] [address] [place] [phone] * DNA (ds) Antibody (12/16/2024 11:02 AM EST) Anti DNA DS Antibody 1 IU/mL [facility] Comment:IU/mL Interpretation < or = 4 Negative 5-9 Indeterminate > or = 10 PositiveTHIS TEST WAS PERFORMED AT:[employer] [address] [phone] HAZEL MD 12/16/2024 11:0 2 AM EST 12/16/2024 11:02 AM EST us Generic External Data Provider LAB BLOOD ORDERAB LES Final Result Performing Organization Address City/[facility]/ZIP Co de Phone Number [facility] [address] [place] [phone] * Lupus Anticoagulant Evaluation with Reflex (12/16/2024 11:02 AM EST) Pathologist [facility] Lupus Interpretation see note [facility] Comment:A Lupus Anticoagulan t is not detected.Reference Range: Not DetectedFor additional information, please refer tohttp://education.ZAP/faq/IOJ75l6(This link is being provided for informational/educational purposes only.)This interpretation is based on the following testresults. PTT (LAC) Screen 32 <=40 sec [facility] DRVVT Screen 31 <=45 sec [facility] Comment:THIS TEST WAS PERFOR MED AT:[employer]/[id number] [place] [address]PIFEQZRMAGAN KOTHARI MD,PHD dRVVT Confirmation [facility] dRVVT 1:1 Mix TNP [facility] DRVVT 1:[address] [facility] Hexagonal Phase Neutralization TNP [facility] Thrombin Clotting Time [facility] 12/16/2024 11:0 2 AM EST 12/16/2024 11:02 AM EST us Generic External Data Provider LAB BLOOD ORDERAB LES Final Result [facility] [address] [place] [phone] * (ABNORMAL) Sed Rate by Modified Jolantaren (12/16/2024 11:02 AM EST) Erythrocyte Sedimentation Rate 27(H) 0 - 20 MM/HR [facility] Comment:Patients with polycy themia and many hemoglobin abnormalitiesmay have depressed sed rates whereas patients with anemiamay have elevated sed rates. 12/16/2024 11:0 2 AM EST 12/16/2024 11:02 AM EST Generic External Data Provider LAB BLOOD ORDERAB LES Final Result Performing Organization Address [facility] de Phone Number [facility] [address] [place] [phone] * Complement Component C3c (12/16/2024 11:02 AM EST) Complement C3 162 83 - 193 mg/dL [facility] Comment:THIS TEST WAS PERFOR MED AT:[employer] [place] [address]URELFWILL HAZEL MD 12/16/2024 11:0 2 AM EST 12/16/2024 11:02 AM EST Generic External Data Provider LAB BLOOD ORDERAB LES Final Result Performing Organization Address [facility] de Phone Number [facility] [address] [place] [phone] * Complement Component C4c (12/16/2024 11:02 AM EST) Complement C4 37 15 - 57 mg/dL [facility] Comment:THIS TEST WAS PERFOR MED AT:[employer] [place] [phone] HAZEL MD 12/16/2024 11:0 2 AM EST 12/16/2024 11:02 AM EST us Generic External Data Provider LAB BLOOD ORDERAB LES Final Result Performing Organization Address City/[facility]/ZIP Co de Phone Number [facility] [address] [place] [phone] * (ABNORMAL) C-reactive Protein (12/16/2024 11:02 AM EST) C Reactive Protein 0.72(H) < or = 0.50 mg/dL [facility] 12/16/2024 11:0 2 AM EST 12/16/2024 11:02 AM EST myBarrister External Data Provider LAB BLOOD ORDERAB LES Final Result Performing Organization Address [facility] Co de Phone Number [facility] [address] [place] [phone] * RICCO Screen,IFA, with Reflex to Titer and Pattern (12/16/2024 11:02 AM EST) Anti Nuclear Antibody Screen NEGATIVE NEGATIVE [facility] Comment:RICCO IFA is a first [...] clinicallysuspected inflammatory myopathies.AC-0: NegativeInternational Consensus on RICCO Patterns(https://doi.org/10.1515/uumh-0167-8564)For additional information, please refer tohttp://education.NATIONSPLAY/faq/SRI564(This link is being provided for informational/educational purposes only.)THIS TEST WAS PERFORMED AT:[employer] [place] [phone] HAZEL MD RICCO Titer TNP [facility] RICCO Pattern [facility] RICCO TITER 2 (REF LAB) [facility] RICCO Pattern 2 TNP [facility] RICCO TITER [address] [facility] [facility] RICCO PATTERN 3 [facility] 12/16/2024 11:0 2 AM EST 12/16/2024 11:02 AM EST us Generic External Data Provider LAB BLOOD ORDERAB LES Final Result [facility] [address] [place] [phone] * Comprehensive Metabolic Panel (12/16/2024 11:02 AM EST) Sodium 141 135 - 145 mmol/L [facility] Potassium 4.0 3.3 - 5.1 mmol/L [facility] Chloride 108 96 - 108 mmol/L [facility] Carbon Dioxide 24 22 - 29 mmol/L [facility] Anion Gap 13 12 - 20 [facility] Urea Nitrogen (BUN) 11 9 - 16 mg/dL [facility] Creatinine, Serum 0.59 0.5 - 1.4 mg/dL [facility] Estimated Glomerular Filt Rate >60 [facility] Comment:Chronic Kidney Disea se: Estimated GFR < 60 mL/min/1.88c6Ncncph Kidney Disease: Estimated GFR < 15 mL/min/1.73m2 Glucose 89 60 - 115 mg/dL [facility] Calcium 9.8 8.4 - 10.2 mg/dL [facility] Bilirubin, Total 0.7 0.0 - 1.0 mg/dL [facility] Aspartate Amino Transferase 19 5 - 31 U/L [facility] Alanine Aminotransferase 19 0 - 31 U/L [facility] Total Protein 7.7 6.5 - 8.0 g/dL [facility] Albumin Level 3.9 3.5 - 5.0 g/dL [facility] Alkaline Phosphatase 63 39 - 117 U/L [facility] 12/16/2024 11:0 2 AM EST 12/16/2024 11:02 AM EST Generic External Data Provider LAB BLOOD ORDERAB LES Final Result Performing Organization Address [facility] Co de Phone Number [facility] [address] [place] [phone] * Protein Creatinine Ratio, Urine (12/16/2024 10:55 AM EST) Creatinine, Urine 195.42 mg/dL [facility] Protein, Total, Random Urine 11 <12 mg/dL [facility] Protein/Creati nine Ratio, Ur 0.06 <0.2 [facility] Comment:The spot urine prote in:creatinine ratio may increase to 0.3during normal . 12/16/2024 10:5 5 AM EST 12/16/2024 12:16 PM EST us Generic External Data Provider LAB URINE ORDERAB LES Final Result Performing Organization Address [facility] de Phone Number [facility] [address] [place] [phone] * Hepatitis C Antibody with Reflex to HCV, RNA, Quantitative, Real-Time PCR (09/02/2024 8:20 AM EDT) Hepatitis C Antibody Nonreactive Nonreactive [facility] Comment:Antibodies to HCV no t detected; does not exclude early acuteHCV infection. Blood Venous blood specimen / Unknown 09/02/2024 8:20 AM EDT 09/02/2024 11:09 AM EDT Kay Tamayo MD LAB BLOOD ORDERABLES Final Res ult Performing Organization Address [facility] Co de Phone Number [facility] [address] [place] [phone] * HIV-1/2 Antigen and Antibodies, Fourth Generation, with Reflexes (09/02/2024 8:20 AM EDT) HIV AB/AG Nonreactive Nonreactive [facility] Comment:HIV-1 p24 Ag and/or HIV-1/HIV-2 Ab not detected.A test result that is nonreactive does not exclude thepossibility of exposure to or infection with HIV-1 and/orHIV-2. Nonreactive results in this assay for individualswith prior exposure to HIV-1 and/or HIV-2 may be due toantigen and antibody levels that are below the limit ofdetection of this assay.The Viewster HIV Ag/Ab Combo assay result andsupplemental assay results should be interpreted inconjunction with the patient's clinical presentation,history and other laboratory results. If the results areinconsistent with clinical evidence, additional testing issuggested to confirm the result. Blood Venous blood specimen / Unknown 09/02/2024 8:20 AM EDT 09/02/2024 11:09 AM EDT us Kay Tamayo MD LAB BLOOD ORDERABLES Final Res ult [facility] [address] [place] [phone] * Hemoglobin A1c (09/02/2024 8:20 AM EDT) Hemoglobin A1c 6.0 <6.0 % [facility] Comment:Hemoglobin A1C Refer ence Range Adults: 4.8 - 6.0 % Non diabetic: < 6.0 % Goal: < 7.0 %Additional Action Suggested: > 8.0 %Note: Hemoglobin A1c results are invalid for patients with abnormal amounts of HbF. Blood transfusions may impact the HbA1c concentration in the patient sample. Estimated Average Glucose 126 mg/dL [facility] Comment:eAG = Estimated ave rage glucose which is %A1C expressed asaverage glucose, using the formula of the D8J-AtohrixWdhtrhy Glucose study (ADAG), Diabetes Care, Vol.31,#8,Jun. 2007 Blood Venous blood specimen / Unknown 09/02/2024 8:20 AM EDT 09/02/2024 11:09 AM EDT us Kay Tamayo MD LAB BLOOD ORDERABLES Final Res ult Performing Organization Address [facility] Co de Phone Number [facility] [address] [place] [phone] * (ABNORMAL) Lipid Panel, Standard (09/02/2024 8:20 AM EDT) Triglycerides 99 <150 mg/dL [facility] Comment:Desirable Triglyceri de: less than 150 mg/dLBorderline High Triglyceride 150-199 mg/dLHigh Triglyceride: 200-499 mg/dLVery High Triglyceride: greater than or equal to 5OO mg/dL Cholesterol 262(H) <200 mg/dL [facility] Comment:Desirable Cholestero l: less than 200 mg/dLBorderline High Cholesterol: 200-239 mg/dLHigh Cholesterol: greater than 239 mg/dL LDL Cholesterol Calculated 193(H) <100 mg/dL [facility] Comment:Desirable LDL: less than 100 mg/dLNear Optimal/Above Optimal LDL: 110- 129 mg/dLBorderline High LDL: 130-159 mg/dLHigh LDL: 160-189 mg/dLVery High LDL: greater than or equal to 190 mg/dL HDL Cholesterol 50 >40 mg/dL [facility] Comment:Desirable HDL: great er than 40 mg/dL Note: This HDL assay may give artificially low results in patients with liver disease. Blood Venous blood specimen / Unknown 09/02/2024 8:20 AM EDT 09/02/2024 11:09 AM EDT us Kay Tamayo MD LAB BLOOD ORDERABLES Final Res ult Performing Organization Address City/[facility]/ZIP Co de Phone Number [facility] [address] [place] [phone] * BI Mammogram Screening Tomosynthesis Bilateral (12/15/2023 9:00 AM EST) Anatomical Region Laterality Modality Breast Bilateral Mammography 12/15/2023 9:00 AM EST Narrative 12/29/2023 8:12 AM EST ? [facility] ? [address] ?[place] [address] ? Mammography Report ? Signed ? Patient: Bae Rony,Yuko ?MR#: [id number] ?? [id number] ? : 1965 ?Acct:[id number] ? Age/Sex: 58 / F ?ADM Date: 12/15/23 ? Loc: HO.MAMMO ? Attending Dr: Yuko Garcia MD ? Ordering Physician: Yuko Miranda MD ?Results: ?? 1Negative ? Date of Service: 12/15/23 ?Follow Up: 1 Year From Orig ?? inal Mammogram ? Procedure(s): MM tomosynthesis screening BI ?? Accession Number(s): [id number] ? cc: Yuko Miranda MD ? EXAMINATION: ?? MM SCREENING DIGITAL BREAST TOMOSYNTHESIS, BILATERAL ? CLINICAL INFORMATION: ? Screening. Asymptomatic. ? COMPARISON: ?? Mammography: This study is compared with prior exams dating back to ?? 2019. ? TECHNIQUE: ?? Digital breast tomosynthesis is [...] 08 ? DD/ 0900 ? TD/TT: ? Early Childhood Lead Teacher: ? Procedure Note Donkarin, Image - 12/29/2023 [facility] [address] [place] [address] Mammography Report Signed Patient: Yuko LyonMR#: [id number] : 1965Acct:[id number] Age/Sex: 58 / FADM Date: 12/15/23 Loc: HO.MAMMO Attending Dr: Yuko Garcia MD Ordering Physician: Yuko Miranda MDResults: 1Negative Date of Service: 12/15/23Follow Up: 1 Year From Orig inal Mammogram Procedure(s): MM tomosynthesis screening BI Accession Number(s): [id number] cc: Yuko Miranda MD EXAMINATION: MM SCREENING [...] in OV> 12/29/23 0808 DD/ 0900 TD/TT: Early Childhood Lead Teacher: Yuko Garcia MD IMG BI PROCEDURES Saturnino kelly Result - Final * THINPREP TIS PAP (03/15/2021 1:47 PM EDT) Clinical Information: None given [facility] COMMENT SEE COMMENT [facility] ON [...] has been evaluated with computer assisted technology. [facility] Outside Plant Field Engineer : SEE COMMENT [facility] Comment: BLC,CT(ASCP) CT screening location: [address] ??[address] Interpretation/R esult: Negative for intraepithelial lesion or malignancy. [facility] LMP: NONE GIVEN [facility] Prev. BX: NONE GIVEN [facility] Prev. PAP: NONE GIVEN [facility]OUND[facility] ON [facility] SOURCE: None given [facility] Statement Of Adequacy: SEE COMMENT [facility] Comment: Satisfactory for evaluation. Endocervical/transformation zone component present. Age and/or menstrual status not provided 03/15/2021 1:47 PM EDT Kay Tamayo MD LAB PATHOLOGY ORDERABLES Final Result Performing Organization Address [facility] Co de Phone Number [facility] [address] * HPV mRNA E6/E7 REFLEX TO HPV 16, 18/45 (03/15/2021 1:47 PM EDT) HPV nRNA E6/E7 Not Detected Not Detected [facility] Comment: Methodology: Director Human Services-Mediated Amplification This assay detects E6/E7 viral messenger RNA (mRNA) from 14 high-risk HPV types (16,18,31,33,35,39,45,51,52,56,58,59,66,68). ? The analytical performance characteristics of this assay have been determined by [employer]. The modifications have not been cleared or approved by the FDA. This assay has been validated pursuant to the CLIA regulations and is used for clinical purposes. ?? For additional information, please refer to http://education.ZAP/faq/DVD861s6 (This link if provided for information/ educational purposes only.) 03/15/2021 1:47 PM EDT Kay Tamayo MD LAB CYTOLOGY ORDERABLES Final Result Performing Organization Address [facility] de Phone Number [facility] [address] * Hm Colonoscopy (05/29/2016) Historical Provider HEALTH MAINTENANCE Final Result from Last 3 Months or Most Recently Relevant to Health Maintenance Insurance Hartman Wright [facility] Care Teams Chief Nurse Anesthetist Relationship Specialty Start Date End Date Kay Tamayo MD [address] [place] [phone] PCP - General Family Medicine 11/01/20
--- OUTSIDE RECORDS SUMMARY | 2024-12-22 14:07 | XMS_ITS | Encounter Summary ---
Author Organization [email or web address] Address [address] [facility] [address] [place] [address] Care Team Providers Care Medical Health Researcher Name Role Phone Kay Tamayo MD Primary Care Provider [phone] Reason for Visit * Reason Comments Pre-visit Planning SDOH screening posit melvin and tobacco screening negative Encounter Details Date Type Department Care Team ([facility] st Contact Info) Description 12/19/2024 Patient Outreach [facility] [address] [place] [address] Kay Tamayo MD [address] [place] [address] Pre-visit Planning (SDOH screening positive and tobacco screening negative) Social History Tobacco Use Types Packs/Day Years [...] as of this encounter Progress Notes * Chloe Thibodeaux - 12/19/2024 1:17 PM EST CC Chloe placed successful outbound call to patient for pre-visit planning. Patient name and confirmed. Patient confirms appt date and time, and has transportation arrangements. Biggest concern for appointment at this time is none Appropriate screening completed in anticipation of appointment.Patient advised to bring to appointment a photo id and insurance card, SDOH positive. Patient looking for assistance food insecurities Referral will be placed. documented in this encounter Plan of Treatment Upcoming Encounters Date Type Department Care Team (Late st Contact Info) Description 12/26/2024 10:00 AM EST Office Visit [facility] [address] [place] [address] Alina Cates, OD [address] [place] [address] 12/30/2024 11:00 AM EST Office Visit [facility] [address] [place] [address] Kay Tamayo MD [address] [place] [address] 01/04/2025 9:00 AM EST Office Visit [facility] [address] [place], [place] [phone] Susana Fink [address] [place], [place] [phone] documented as of this encounter Visit Diagnoses Not on filedocumented in this encounter Additional Health Concerns Assessment Noted Time PHQ-9 Depression Total Score: 11 023 2:43 PM EDT documented as of this encounter Care Teams Medical Health Researcher Relationship Specialty Start Date End Date Kay Tamayo MD [address] [place], [place] [phone] PCP - General Family Medicine 11/01/20 documented as of this encounter
== END 2024-12-22 10:32 | disposition home or self-care (01) ==
LOC: HO.LAB 10:31
PROVIDERS: PCP Family Medicine; Visit Provider Student in an Organized Health Care Education/Training Program
DX: N30.00 Acute cystitis without hematuria (principal)
CPT/HCPCS: 81001; 87086

== ENCOUNTER 2025-01-05 10:42 | Outpatient (REF) | payer OTHER, SELFPAY ==
--- OUTSIDE RECORDS SUMMARY | 2025-01-05 11:24 | XMS_ITS | Encounter Summary ---
Author Organization [employer] [facility] Address [address] [place] [address] [address] [address] Care Team Providers Care Cube Machine Tender Name Role Phone Kay Tamayo MD Primary Care Provider [phone] Encounter Details Date Type Department Care Team (Late st Contact Info) Description 07/29/2023 Orders Only [facility] [address] [place] [phone] Provider, MD Tamiko Social History Tobacco Use Types Packs/Day Years [...] Care Team (Late st Contact Info) Description 02/22/2025 4:00 PM EDT Office Visit [facility] [address] [place] [phone] Kay Tamayo MD [address] [place] [phone] documented as of this encounter Procedures Procedure Name Priority Date/Time Associated Diagnosis Comments HM COLONOSCOPY Routine 05/29/2016 documented in this encounter Results * Hm Colonoscopy (05/29/2016) Historical Provider HEALTH MAINTENANCE Final Result documented in this encounter Visit Diagnoses Not on filedocumented in this encounter Care Teams Cube Machine Tender Relationship Specialty Start Date End Date Kay Tamayo MD [address] [place] [address] PCP - General Family Medicine 11/01/20 documented as of this encounter
--- OUTSIDE RECORDS SUMMARY | 2025-01-05 11:25 | XMS_ITS | Encounter Summary ---
Author Organization [employer] Address [address] [facility] 7[address] [place] [address] Care Team Providers Care Industrial Technology Teacher Name Role Phone Kay Tamayo MD Primary Care Provider [phone] Encounter Details Date Type Department Care Team (Late st Contact Info) Description 12/22/2024 Orders Only GENERIC EXTERNAL DATA [...] Description 02/22/2025 4:00 PM EDT Office Visit [facility] [address] [place], [place] [phone] Kay Tamayo MD 230 [place] [address] documented as of this encounter Procedures Procedure Name Priority Date/Time Associated Diagnosis Comments URINALYSIS, COMPLETE Routine 12/22/2024 10:50 AM EST CULTURE, URINE, ROUTINE Routine 12/22/2024 12:00 AM EST documented in this encounter Results * Urinalysis Complete (12/22/2024 10:50 AM EST) Color Urine Yellow [facility] Appearance Urine Cloudy [facility] PH 6.5 5.0 - 9.0 [facility] Glucose Urine UA Negative Negative mg/dL [facility] Urine Blood Negative Negative [facility] Specific Lamar - Urine 1.025 1.005 - 1.025 [facility] Urine Protein Negative Neg-Trace mg/dL [facility] Urine Ketones Negative Negative mg/dL [facility] Nitrite Urine Negative Negative [facility] Leukocyte Esterase Urine Negative Negative [facility] RBC Urine 0-2 0 - 2 /HPF [facility] Urine WBC 0-5 0 - 5 /HPF [facility] Urine Squamous Epithelial Cell 3-5 0 - 2 /HPF [facility] TRANSITIONAL (EPITHELIAL) CELLS (#/HPF) IN URINE Present [facility] Urine Bacteria 1+ None Seen [facility] Hyaline Casts, Urine 0-2 0 - 2 /LPF [facility] 12/22/2024 10:5 0 AM EST 12/22/2024 12:00 PM EST us Generic External Data Provider LAB URINE ORDERAB LES Final Result Performing Organization Address [facility] Co de Phone Number [facility] [address] [place] [phone] * Culture, Urine, Routine (12/22/2024 12:00 AM EST) Urine Urine specimen obtained by clean catch procedure / Unknown 12/22/2024 12/22/2024 Comment:UACC Narrative [facility] - 12/23/2024 9:12 AM EST Urine Culture Report Result Urine Culture 10,000 to 50,000 cfu/ml Urine Culture Mixed bacterial desiree characteristic of Urine Culture urogenital contamination. Specimen Source: Urine clean catch Generic External Data Provider LAB MICROBIOLOGY - GENERAL ORDERABLES Final Result Performing Organization Address [facility] Co de Phone Number [facility] [address] [place] [phone] documented in this encounter Visit Diagnoses Not on filedocumented in this encounter Additional Health Concerns Assessment Noted Time PHQ-9 Depression Total Score: 11 09/11/2 023 2:43 PM EDT documented as of this encounter Care Teams Industrial Technology Teacher Relationship Specialty Start Date End Date Kay Tamayo MD [address] [place] [phone] PCP - General Family Medicine 11/01/20 documented as of this encounter
--- OUTSIDE RECORDS SUMMARY | 2025-01-05 11:25 | XMS_ITS | Encounter Summary ---
Author Organization [employer] [facility] Address [address] [facility] 7 [place] [address] Care Team Providers Care Tunnel Kiln Repairer Name Role Phone Kay Tamayo MD Primary Care Provider [phone] Encounter Details Date Type Department Care Team (Latest Contact Info) Description 11/25/2019 Abstract [facility] Dental, Provider, DDS Social History [...] Description 02/22/2025 4:00 PM EDT Office Visit [facility] [address] [place] [address] Kay Tamayo MD [address] [place] [address] documented as of this encounter Visit Diagnoses Not on filedocumented in this encounter Care Teams Tunnel Kiln Repairer Relationship Specialty Start Date End Date Kay Tamayo MD [address] [place] [address] PCP - General Family Medicine 11/01/20 documented as of this encounter
--- OUTSIDE RECORDS SUMMARY | 2025-01-05 11:25 | XMS_ITS | Encounter Summary ---
Author Organization [employer] Address [address] [facility] 7t [place] [address] Care Team Providers Care Whale Trainer Name Role Phone Kay Tamayo MD Primary Care Provider [phone] Encounter Details Date Type Department Care Team (Latest Contact Info) Description 12/26/2024 Travel Social History Tobacco Use Types Packs/Day Years [...] Description 02/22/2025 4:00 PM EDT Office Visit [facility] [address] [place] [address] [phone] Kay Tamayo MD [address] [place] [phone] documented as of this encounter Visit Diagnoses Not on filedocumented in this encounter Additional Health Concerns Assessment Noted Time PHQ-9 Depression Total Score: 11 023 2:43 PM EDT documented as of this encounter Care Teams Whale Trainer Relationship Specialty Start Date End Date Kay Tamayo MD [address] [place] [address] [phone] PCP - General Family Medicine 11/01/20 documented as of this encounter
--- OUTSIDE RECORDS SUMMARY | 2025-01-05 11:25 | XMS_ITS | Encounter Summary ---
Author Organization [employer] Address [address] [facility] 7t [place] [address] Care Team Providers Care Document Preparer Microfilming Name Role Phone Kay Tamayo MD Primary Care Provider [phone] Encounter Details Date Type Department Care Team ([facility] st Contact Info) Description 08/05/2024 Orders Only [facility] [address] [place], [place] [phone] Kay Tamayo MD [address] [place], [place] [phone] Essential hypertension (Primary Dx); Lupus erythematosus, unspecified [...] Description 02/22/2025 4:00 PM EDT Office Visit [facility] [address] [place] [address] Kay Tamayo MD [address] [place] [address] documented as of this encounter Procedures Procedure [...] 8:20 AM EDT) HIV AB/AG Nonreactive Nonreactive [facility] Comment:HIV-1 p24 Ag and/or HIV-1/HIV-2 Ab not detected.A test result that is nonreactive does not exclude thepossibility of exposure to or infection with HIV-1 and/orHIV-2. Nonreactive results in this assay for individualswith prior exposure to HIV-1 and/or HIV-2 may be due toantigen and antibody levels that are below the limit ofdetection of this assay.The Treato HIV Ag/Ab Combo assay result andsupplemental assay results should be interpreted inconjunction with the patient's clinical presentation,history and other laboratory results. If the results areinconsistent with clinical evidence, additional testing issuggested to confirm the result. Blood Venous blood specimen / Unknown 09/02/2024 8:20 AM EDT 09/02/2024 11:09 AM EDT Kay Tamayo MD LAB BLOOD ORDERABLES Final Res ult Performing Organization Address [facility]/ZIP Co de Phone Number [facility] [address] [place] [phone] * Hepatitis C Antibody with Reflex to HCV, RNA, Quantitative, Real-Time PCR (09/02/2024 8:20 AM EDT) Hepatitis C Antibody Nonreactive Nonreactive [facility] Comment:Antibodies to HCV no t detected; does not exclude early acuteHCV infection. Blood Venous blood specimen / Unknown 09/02/2024 8:20 AM EDT 09/02/2024 11:09 AM EDT Kay Tamayo MD LAB BLOOD ORDERABLES Final Res ult Performing Organization Address [facility]/ZIP Co de Phone Number [facility] [address] [place] [phone] * Hemoglobin A1c (09/02/2024 8:20 AM EDT) Hemoglobin A1c 6.0 <6.0 % [facility] Comment:Hemoglobin A1C Refer ence Range Adults: 4.8 - 6.0 % Non diabetic: < 6.0 % Goal: < 7.0 %Additional Action Suggested: > 8.0 %Note: Hemoglobin A1c results are invalid for patients with abnormal amounts of HbF. Blood transfusions may impact the HbA1c concentration in the patient sample. Estimated Average Glucose 126 mg/dL [facility] Comment:eAG = Estimated ave rage glucose which is %A1C expressed asaverage glucose, using the formula of the B2R-NodiovtWsecjdp Glucose study (ADAG), Diabetes Care, Vol.31,#8,Jun. 2007 Blood Venous blood specimen / Unknown 09/02/2024 8:20 AM EDT 09/02/2024 11:09 AM EDT us Kay Tamayo MD LAB BLOOD ORDERABLES Final Res ult [facility] [address] [place] [phone] * (ABNORMAL) Comprehensive Metabolic Panel (09/02/2024 8:20 AM EDT) Sodium 139 135 - 145 mmol/L [facility] Potassium 3.9 3.3 - 5.1 mmol/L [facility] Chloride 106 96 - 108 mmol/L [facility] Carbon Dioxide 28 22 - 29 mmol/L [facility] Anion Gap 9(L) 12 - 20 [facility] Urea Nitrogen (BUN) 12 9 - 16 mg/dL [facility] Creatinine, Serum 0.73 0.5 - 1.4 mg/dL [facility] Estimated Glomerular Filt Rate >60 [facility] Comment:NOTE: For -Am erican individuals, multiply the result by 1.210.Chronic Kidney Disease: Estimated GFR < 60 mL/min/1.63v7Tkyegr Kidney Disease: Estimated GFR < 15 mL/min/1.73m2 Glucose 104 60 - 115 mg/dL [facility] Calcium 9.7 8.4 - 10.2 mg/dL [facility] Bilirubin, Total 0.8 0.0 - 1.0 mg/dL [facility] Aspartate Amino Transferase 17 5 - 31 U/L [facility] Alanine Aminotransferase 16 0 - 31 U/L [facility] Total Protein 7.3 6.5 - 8.0 g/dL [facility] Albumin Level 3.9 3.5 - 5.0 g/dL [facility] Alkaline Phosphatase 61 39 - 117 U/L [facility] Blood Venous blood specimen / Unknown 09/02/2024 8:20 AM EDT 09/02/2024 11:09 AM EDT us Kay Tamayo MD LAB BLOOD ORDERABLES Final Res ult [facility] [address] [place] [phone] * (ABNORMAL) CBC auto differential (09/02/2024 8:20 AM EDT) White Blood Count 5.4 4.8 - 10.8 X10*3/uL [facility] Red Blood Count 4.50 4.20 - 5.50 X10*6/uL [facility] Hemoglobin 12.0 12.0 - 16.0 g/dl [facility] Hematocrit 37.4 37.0 - 47.0 % [facility] Mean Corpuscular Volume 83.1 80.0 - 98.0 fL [facility] Mean Corpuscular Hemoglobin 26.7(L) 27.0 - 33.0 pg [facility] Mean Corpuscular HGB Conc 32.1 31.0 - 35.0 g/dl [facility] Red Cell Distribution Width 14.1 11.0 - 16.0 % [facility] Platelet Count 267 160 - 400 X10*3/uL [facility] Mean Platelet Volume 11.5 9.4 - 12.3 fL [facility] Neutrophils Percent Auto 58.4 45 - 73 % [facility] Imm Gran Pct Auto 0.2 0.0 - 0.4 % [facility] Lymphocytes Percent Auto 29.6 20 - 40 % [facility] Monocytes Percent Auto 9.4 2 - 11 % [facility] Eosinophils Percent Auto 2.0 0 - 4 % [facility] Basophils Percent Auto 0.4 0 - 2 % [facility] NRBC Pct Auto 0.0 0.0 - 0.2 /100WBC [facility] Neutrophils Absolute Auto 3.2 2.0 - 8.3 x10*3/uL [facility] Imm Gran Abs Auto 0.01 0.00 - 0.03 X10*3/uL [facility] Lymphocytes Absolute Auto 1.6 1.2 - 4.9 X10*3/uL [facility] Monocytes Absolute Auto 0.5 0.1 - 1.2 X10*3/uL [facility] Eosinophils Absolute Auto 0.1 0.0 - 0.4 X10*3/uL [facility] Basophils Absolute Auto 0.0 0.0 - 0.2 X10*3/uL [facility] NRBC Abs Auto 0.000 0.0 - 0.012 X10*3/uL [facility] Blood Venous blood specimen / Unknown 09/02/2024 8:20 AM EDT 09/02/2024 11:09 AM EDT us Kay Tamayo MD LAB BLOOD ORDERABLES Final Res ult [facility] [address] [place], [place] [phone] * C-reactive Protein (09/02/2024 8:20 AM EDT) C Reactive Protein 0.49 < or = 0.50 mg/dL [facility] Blood Venous blood specimen / Unknown 09/02/2024 8:20 AM EDT 09/02/2024 11:09 AM EDT us Kay Tamayo MD LAB BLOOD ORDERABLES Final Res ult [facility] [address] [place] [phone] documented in this encounter Visit Diagnoses Diagnosis Essential hypertension- Primary Unspecified essential hypertension Lupus erythematosus, unspecified form Prediabetes Other abnormal glucose Screening examination for STI documented in this encounter Additional Health Concerns Assessment Noted Time PHQ-9 Depression Total Score: 11 023 2:43 PM EDT documented as of this encounter Care Teams Document Preparer Microfilming Relationship Specialty Start Date End Date Kay Tamayo MD [address] [place] [phone] PCP - General Family Medicine 11/01/20 documented as of this encounter
--- OUTSIDE RECORDS SUMMARY | 2025-01-05 11:25 | XMS_ITS | Encounter Summary ---
Author Organization [employer] Address [address] [facility] 7[address] [place] [address] Care Team Providers Care Sales Executive Name Role Phone Kay Tamayo MD Primary Care Provider [phone] Reason for Referral * Imaging (Routine) - Authorized Specialty Diagnoses / Procedures Referred By Contac t Referred To Contact Radiology Diagnoses Right hip pain Abnormal x-ray of spine Procedures MR Lumbar Spine w/o Contrast Kay Tamayo MD [address] [place] [phone] Phone: tel: fax: [address] Phone: tel: fax: Referral ID Status Reason Start Date Expiration Date V isits Requested Visits Authorized [id number] Authorized 01/04/2025 01/04/2026 1 1 Reason for Visit * Reason Comments Follow-up Encounter Details Date Type Department Care Team (Late st Contact Info) Description 12/30/2024 11:00 AM EST Telemedicine [facility] [address] [place] [address] [phone] Kay Tamayo MD [address] [place] [address] [phone] Primary insomnia (Primary Dx); Mood disorder (CMS/HCC); Dietary counseling; Exercise counseling; Class 1 obesity with serious comorbidity and body mass index (BMI) of 32.0 to 32.9 in adult, unspecified obesity type; Essential hypertension; Right hip pain; Abnormal x-ray of spine Social History Tobacco Use Types Packs/Day Years Used Date Smoking Tobacco: Never Passive Smoke Exposure: Never Smokeless Tobacco: Never Alcohol Use Standard Drinks/Week Comments Never 0 (1 standard drink = 0.6 oz pur e alcohol) Depression Answer Date Recorded Patient Health Questionnaire-9 Score 2 12/30/2024 Patient Health Questionnaire-9 Score 2 12/30/2024 Last PHQ-9: Questionnaire Data Not on file 0 12/30/2024 Housing Stability Answer Date Recorded What is [...] Date Recorded Patient Health Questionnaire-2 Score 2 12/30/2024 Internet Access Answer Date Recorded Internet Access Q1 Yes 12/19/2024 Internet Access Q2 Not on file 12/19/2024 Comments Unknown Sex and Gender Information Value Date Recorded Sex Assigned at Female 09/22/2022 10:16 AM EDT Legal Sex Female 10:16 AM EDT Gender Identity Female 09/22/2022 10:16 AM EDT Sexual Orientation Straight 09/22/2022 10 :16 AM EDT documented as of this encounter Progress Notes * Kay Tamayo MD - 12/30/2024 11:00 AM EST SUBJECTIVE: Yuko Uribe is a 59 y.o. year old female who presents for chronic disease management. Deniesrecent illness, ER visit, or hospitalization. Acute Concerns: Slightly sick right now with muscle ache and sore throat, taking 30ml liquid Tylenol once or twice a day R hip is painful, known moderate OA there, also supposed to have L spine MRI due to possible impingement at L5/S1. 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 Moderate joint space narrowing and facet arthropathy at L5-S1 with some degree of neural foraminal encroachment. Fairly symmetric increased sclerosis of the SI joints. No significant paraspinal soft tissue abnormality. Surgical clips and anastomotic sutures projecting over the gastric region. Right hip: No acute fracture or subluxation. Moderate joint space narrowing and subcortical sclerosis of the right hip. No significant soft tissue abnormality. XR/XR lumbar spine 2-3V IMPRESSION: 1. No acute compression deformity or subluxation. 2. Moderate degenerative osteoarthritis of the right hip. 3. Moderate degenerative changes in the lumbar spine at L5-S1 leading to neural foraminal encroachment, further evaluation with an MRI could be obtained as clinically indicated. Pre-diabetes: A1C 6.0 Has Metformin prescribed, not taking it cholesterol 230, LDL 140 Joint pain/fibromyalgia saw Rheum Sybil Tenorio at [facility] 12/2022, labs returned from [facility] negative for lupus, they recommend trying treatment for fibromyalgia Had been on Plaquenil for one year in 2020, stopped then had monitoring eye exam 12/2022 Labs without sign of lupus (neg RICCO Latest Reference Range & Units 12/16/24 11:02 Glucose 60 - 115 mg/dL 89 Urea Nitrogen (BUN) 9 - 16 mg/dL 11 Creatinine, Serum 0.5 - 1.4 mg/dL 0.59 Sodium 135 - 145 mmol/L 141 Potassium 3.3 - 5.1 mmol/L 4.0 Chloride 96 - 108 mmol/L 108 Carbon Dioxide 22 - 29 mmol/L 24 Calcium 8.4 - 10.2 mg/dL 9.8 Albumin Level 3.5 - 5.0 g/dL 3.9 Bilirubin, Total 0.0 - 1.0 mg/dL 0.7 AST 5 - 31 U/L 19 ALT 0 - 31 U/L 19 Anion Gap 12 - 20 13 Total Protein 6.5 - 8.0 g/dL 7.7 Red Blood Count 4.20 - 5.50 X10*6/uL 4.54 Hemoglobin 12.0 - 16.0 g/dl 12.1 Hematocrit 37.0 - 47.0 % 37.3 Mean Corpuscular Volume 80.0 - 98.0 fL 82.2 Mean Corpuscular Hemoglobin 27.0 - 33.0 pg 26.7 (L) Mean Corpuscular HGB Conc 31.0 - 35.0 g/dl 32.4 Red Cell Distribution Width 11.0 - 16.0 % 13.3 Platelet Count 160 - 400 X10*3/uL 252 Eosinophils Percent Auto 0 - 4 % 1.9 Lymphocytes Absolute Auto 1.2 - 4.9 X10*3/uL 1.6 Basophils Absolute Auto 0.0 - 0.2 X10*3/uL 0.0 Monocytes Absolute Auto 0.1 - 1.2 X10*3/uL 0.6 Neutrophils Absolute Auto 2.0 - 8.3 x10*3/uL 4.0 Neutrophils Percent Auto 45 - 73 % 63.0 Basophils Percent Auto 0 - 2 % 0.3 Eosinophils Absolute Auto 0.0 - 0.4 X10*3/uL 0.1 Lymphocytes Percent Auto 20 - 40 % 25.0 Monocytes Percent Auto 2 - 11 % 9.5 Imm Gran Abs Auto 0.00 - 0.03 X10*3/uL 0.02 Imm Gran Pct Auto 0.0 - 0.4 % 0.3 RICCO Titer TNP RICCO Pattern TNP Alkaline Phosphatase 39 - 117 U/L 63 RICCO Pattern 2 TNP RICCO PATTERN 3 TNP RICCO TITER 2 (REF LAB) TNP RICCO TITER 3 TNP Anti DNA DS Antibody IU/mL 1 Anti Nuclear Antibody Screen NEGATIVE NEGATIVE C Reactive Protein < or = 0.50 mg/dL 0.72 (H) Complement C3 83 - 193 mg/dL 162 Complement C4 15 - 57 mg/dL 37 DNA AB(DS) Crithidia, IFA Negative Negative DNA (DS) Antibody Crithidia TNP dRVVT 1:1 Mix TNP DRVVT 1:1 Mix Interpretation TNP dRVVT Confirmation TNP dRVVT Screen <=45 sec 31 Erythrocyte Sedimentation Rate 0 - 20 MM/HR 27 (H) Estimated Glomerular Filt Rate >60 Hexagonal Phase Neutralization TNP Lupus Interpretation see note Mean Platelet Volume 9.4 - 12.3 fL 11.4 NRBC Abs Auto 0.0 - 0.012 X10*3/uL 0.000 NRBC Pct Auto 0.0 - 0.2 /100WBC 0.0 PTT (LAC) Screen <=40 sec 32 Sjogren's Antibody (SS-A) <1.0 NEG AI <1.0 NEG Sjogren's Antibody (SS-B) <1.0 NEG AI <1.0 NEG SM Antibody <1.0 NEG AI <1.0 NEG SM/[employer] HEAD Antibody <1.0 NEG AI <1.0 NEG Thrombin Clotting Time TNP White Blood Count 4.8 - 10.8 X10*3/uL 6.3 Weight gain: had gastric bypass in 2021, went from 240 to 160, but weight now up to 185. She is saddened and frustrated by this Health Maintenance Mammo- 11/2022 Pap- 02/2021 Colonoscopy- declines COVID-19 vaccination x 3, 08/22/21 booster Patient Active Problem List Diagnosis Anxiety Bilateral plantar fasciitis Depressive disorder Mood disorder (CMS/HCC) Essential hypertension Left-sided trigeminal neuralgia Migraine Varicose veins of lower extremity Fibromyalgia Other hyperlipidemia Prediabetes Primary insomnia Gingival bleeding Periodontal disease Tipped teeth Rotated tooth Dental caries Class 1 obesity with serious comorbidity and body mass index (BMI) of 32.0 to 32.9 in adult Right hip pain Abnormal x-ray of spine Past Surgical History: Procedure Laterality Date GASTRIC BAND ADJUSTMENT TUBAL LIGATION Family History Problem Relation Name Age of Onset Breast cancer Mother Diabetes Father Hypertension Father Social History Social History Narrative 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 HENT: Positive for congestion and sore throat. Respiratory: Negative. Cardiovascular: Negative. Musculoskeletal: Positive for arthralgias and back pain. Skin: Negative. OBJECTIVE: No exam, telehealth ASSESSMENT/PLAN Problem List Items Addressed This Visit Mood disorder (CMS/HCC) Essential hypertension Primary insomnia - Primary Class 1 obesity with serious comorbidity and body mass index (BMI) of 32.0 to 32.9 in adult Right hip pain Relevant Orders MR Lumbar Spine w/o Contrast Abnormal x-ray of spine Current Assessment & Plan Patient has tried topical treatment, oral medications, and physician supervised walk plan without improvement in her R hip and spine pain. - will refer for MRI to rule out spinal nerve compression Relevant Orders MR Lumbar Spine w/o Contrast Other Visit Diagnoses Dietary counseling eat whole foods cook meals at home Exercise counseling walk everyday Follow Up: 4-6 months or sooner prn Allergies Allergen Reactions Amoxicillin Hives and Rash Clavulanic Acid Hives and Rash Other reaction(s): Hives/Skin Rash Penicillins Hives and Rash Other reaction(s): Hives/Skin Rash Metformin Dizziness Current Outpatient Medications: Liquid Pain Relief 160 MG/5ML liquid, TAKE 10 ML BY MOUTH EVERY 4 TO 6 HOURS NEEDED FOR HEADACHE, Disp: , Rfl: LORazepam (Ativan) 0.5 MG tablet, TAKE 1 TABLET BY MOUTH EVERY DAY NEEDED FOR SEVERE ANXIETY / PANIC ATTACK, Disp: , Rfl: tiZANidine (Zanaflex) 4 MG tablet, TAKE 1 TABLET BY MOUTH AT BEDTIME FOR MUSCLE SPASMS, Disp: , Rfl: Acetaminophen 160 MG/5ML syrup, Take 10 mL (320 mg) by mouth Every 4-6 hours as needed (headache).,Disp: 900 mL, Rfl: 11 ascorbic acid (Vitamin C) 250 MG chewable tablet, Chew 1 tablet (250 mg) in the morning., Disp: 90 tablet, Rfl: 3 Blood Pressure Monitoring (Omron 3 Series BP Monitor) device, USE TO CHECK BLOOD PRESSURE DIRECTED, Disp: , Rfl: FLUoxetine (PROzac) 20 MG capsule, Take 1 capsule (20 mg) by mouth Once per day., Disp: 90 capsule,Rfl: 3 ibuprofen 600 MG tablet, TAKE 1 TABLET BY MOUTH THREE TIMES DAILY FOR 10 DAYS, Disp: 90 tablet, Rfl: 2 Multiple Vitamin (Multi-Vitamin) tablet, Take 1 tablet by mouth in the morning., Disp: 90 tablet, Rfl: 3 nortriptyline (Pamelor) 10 MG capsule, Take 1 capsule (10 mg) by mouth at bedtime., Disp: 90 capsule, Rfl: 3 traZODone (Desyrel) 50 MG tablet, TAKE 1/2 TABLET BY MOUTH AT BEDTIME NEEDED FOR SLEEP, Disp: , Rfl: Vitamin D, Cholecalciferol, 10 MCG (400 UNIT) chewable tablet, Chew 2 tablets in the morning., Disp: 180 tablet, Rfl: 3 Tajik Translation: Provided by [facility] staff member ANABEL Marquez documented in this encounter Miscellaneous Notes * Assessment & Plan Note - Kay Tamayo MD - 01/04/2025 2:51 PM ESTAssociated Problem(s): Abnormal x-ray of spine Patient has tried topical treatment, oral medications, and physician supervised walk plan without improvement in her R hip and spine pain. - will refer for MRI to rule out spinal nerve compression documented in this encounter Plan of Treatment Upcoming Encounters Date Type Department Care Team (Late st Contact Info) Description 02/22/2025 4:00 PM EDT Office Visit [facility] [address] [place] [phone] Kay Tamayo MD [address] [place] [phone] Scheduled Orders Name Type Priority Associated Diagnoses Orde r Schedule MR Lumbar Spine w/o Contrast Imaging Routine Right hip pain Abnormal x-ray of spine Expected: 01/04/2025, Expires: 01/04/2026 documented as of this encounter Visit Diagnoses Diagnosis Primary insomnia- Primary Persistent disorder of initiating or maintaining sleep Mood disorder (CMS/HCC) Unspecified episodic mood disorder Dietary counseling Dietary surveillance and counseling Exercise counseling Class 1 obesity with serious comorbidity and body mass index (BMI) of 32.0 to 32.9 in adult, unspecified obesity type Essential hypertension Unspecified essential hypertension Right hip pain Pain in joint, pelvic region and thigh Abnormal x-ray of spine documented in this encounter Additional Health Concerns Assessment Noted Time PHQ-9 Depression Total Score: 2 12/30/19 25 11:00 AM EST documented as of this encounter Care Teams Sales Executive Relationship Specialty Start Date End Date Kay Tamayo MD [address] [place] [address] PCP - General Family Medicine 11/01/20 documented as of this encounter
--- OUTSIDE RECORDS SUMMARY | 2025-01-05 11:25 | XMS_ITS | Encounter Summary ---
Author Organization [employer] [facility] Address [address] [facility] [address] [place] [address] Care Team Providers Care Proposal Director Name Role Phone Kay Tamayo MD Primary Care Provider [phone] Encounter Details Date Type Department Care Team (Latest Contact Info) Description 08/22/2021 Abstract [facility] CONVERSIONS Dental, Provider, DDS Social History [...] Description 02/22/2025 4:00 PM EDT Office Visit [facility] [address] [place] [address] Kay Tamayo MD [address] [place] [address] documented as of this encounter Visit Diagnoses Not on filedocumented in this encounter Care Teams Proposal Director Relationship Specialty Start Date End Date Kay Tamayo MD [address] [place] [address] PCP - General Family Medicine 11/01/20 documented as of this encounter
--- OUTSIDE RECORDS SUMMARY | 2025-01-05 11:25 | XMS_ITS | Encounter Summary ---
Author Organization [employer] [facility] Address [address] [facility] 7 [place] [address] Care Team Providers Care Manager Corporate Marketing Name Role Phone Kay Tamayo MD Primary Care Provider [phone] Reason for Referral * Imaging (Routine) - Closed Specialty Diagnoses / Procedures Referred By Contac t Referred To Contact Radiology Diagnoses Lumbar foraminal stenosis Procedures MR Lumbar Spine w/o Contrast Kay Tamayo MD [address] [place] [address] Phone: tel: fax: [address] Phone: tel: fax: Referral ID Status Reason Start Date Expiration Date Visits Re quested Visits Authorized [id number] Closed 06/17/2023 06/16/2024 1 1 Encounter Details Date Type Department Care Team (Late st Contact Info) Description 06/17/2023 Orders Only [facility] [address] [place] [address] [phone] Kay Tamayo MD [address] [place], [place] [phone] Lumbar foraminal stenosis (Primary Dx) Social History [...] Description 02/22/2025 4:00 PM EDT Office Visit [facility] [address] [place] [phone] Kay Tamayo MD [address] [place] [phone] Scheduled Orders Name Type Priority Associated Diagnoses Orde r Schedule MR Lumbar Spine w/o Contrast Imaging Routine Lumbar foraminal stenosis Expected: 06/17/2023, Expires: 06/17/2024 documented as of this encounter Visit Diagnoses Diagnosis Lumbar foraminal stenosis- Primary documented in this encounter Care Teams Manager Corporate Marketing Relationship Specialty Start Date End Date Kay Tamayo MD [address] [place] [phone] PCP - General Family Medicine 11/01/20 documented as of this encounter
--- OUTSIDE RECORDS SUMMARY | 2025-01-05 11:25 | XMS_ITS | Encounter Summary ---
Author Organization [employer] Address [address] [facility] 7[address] [place] [address] Care Team Providers Care Emergency Medical Services Coordinator Name Role Phone Kay Tamayo MD Primary Care Provider [phone] Encounter Details Date Type Department Care Team [...] Description 02/22/2025 4:00 PM EDT Office Visit [facility] [address] [place] [address] Kay Tamayo MD [address] [place], [place] [phone] documented as of this encounter Procedures Procedure Name Priority Date/Time Associated Diagnosis Comments DNA (DS) ANTIBODY, CRITHIDIA IFA WITH REFLEX TO TITER Routine 12/16/2024 11:02 AM EST SM AND SM/PLASTERER STUCCO ANTIBODIES Routine 12/16/2024 11:02 AM EST SJOGREN'S [...] 11:02 AM EST) Lupus Interpretation see note [facility] Comment:A Lupus Anticoagulan t is not detected.Reference Range: Not DetectedFor additional information, please refer tohttp://education.[employer]/faq/KBU40v0(This link is being provided for informational/educational purposes only.)This interpretation is based on the following testresults. PTT (LAC) Screen 32 <=40 sec [facility] DRVVT Screen 31 <=45 sec [facility] Comment:THIS TEST WAS PERFOR MED AT:[employer]/[facility] [place] [phone] KOTHARI MD,PHD dRVVT Confirmation [facility] dRVVT 1:1 Mix [facility] DRVVT 1:1 Mix Interpretation [facility] Hexagonal Phase Neutralization [facility] Thrombin Clotting Time [facility] 12/16/2024 11:0 2 AM EST 12/16/2024 11:02 AM EST us Generic External Data Provider LAB BLOOD ORDERAB LES Final Result [facility] [address] [place] [phone] * DNA (ds) Antibody (12/16/2024 11:02 AM EST) Anti DNA DS Antibody 1 IU/mL [facility] Comment:IU/mL Interpretation < or = 4 Negative 5-9 Indeterminate > or = 10 PositiveTHIS TEST WAS PERFORMED AT:[address] [place] [phone] HAZEL MD 12/16/2024 11:0 2 AM EST 12/16/2024 11:02 AM EST Generic External Data Provider LAB BLOOD ORDERAB LES Final Result Performing Organization Address [facility] de Phone Number [facility] [address] [place] [phone] * Sm and Sm/PLASTERER STUCCO Antibodies (12/16/2024 11:02 AM EST) SM Antibody <1.0 NEG <1.0 NEG [facility] SM/PLASTERER STUCCO Antibody <1.0 NEG <1.0 NEG [facility] Comment:THIS TEST WAS PERFOR MED AT:[address] [place] [phone] HAZEL MD 12/16/2024 11:0 2 AM EST 12/16/2024 11:02 AM EST Generic External Data Provider LAB BLOOD ORDERAB LES Final Result Performing Organization Address [facility] Co de Phone Number [facility] [address] [place] [phone] * Sjogren's Antibodies (SS-A,SS-B) (12/16/2024 11:02 AM EST) Sjogren's Antibody (SS-A) <1.0 NEG <1.0 NEG [facility] Sjogren's Antibody (SS-B) <1.0 NEG <1.0 NEG [facility] Comment:THIS TEST WAS PERFOR MED AT:[address] [place] [phone] HAZEL MD 12/16/2024 11:0 2 AM EST 12/16/2024 11:02 AM EST Generic External Data Provider LAB BLOOD ORDERAB LES Final Result Performing Organization Address [facility]/ZIP Co de Phone Number [facility] [address] [place] [phone] * DNA (ds) Antibody, Crithidia IFA with Reflex to Titer (12/16/2024 11:02 AM EST) DNA AB(DS) Crithidia, IFA Negative Negative [facility] Comment:THIS TEST WAS PERFOR MED AT:[employer]/[facility] [place] [address]CWRNZDFMAGAN KOTHARI MD,PHD DNA AB (DS) CRITHIDIA, ADDITIONAL TESTING [facility] DNA (DS) Antibody Crithidia [facility] 12/16/2024 11:0 2 AM EST 12/16/2024 11:02 AM EST Generic External Data Provider LAB BLOOD ORDERAB LES Final Result Performing Organization Address [facility] Co de Phone Number [facility] [address] [place] [phone] * RICCO Screen,IFA, with Reflex to Titer and Pattern (12/16/2024 11:02 AM EST) Anti Nuclear Antibody Screen NEGATIVE NEGATIVE [facility] Comment:RICCO IFA is a first [...] clinicallysuspected inflammatory myopathies.AC-0: NegativeInternational Consensus on RICCO Patterns(https://doi.org/10.1515/igzu-0813-1258)For additional information, please refer tohttp://education.[employer]/faq/NRR049(This link is being provided for informational/educational purposes only.)THIS TEST WAS PERFORMED AT:[address] [place] [phone] HAZEL MD RICCO Titer TNP [facility] RICCO Pattern TNP [facility] RICCO TITER 2 (REF LAB) [facility] RICCO Pattern 2 TNP [facility] RICCO TITER 3 [facility] RICCO PATTERN 3 [facility] 12/16/2024 11:0 2 AM EST 12/16/2024 11:02 AM EST Generic External Data Provider LAB BLOOD ORDERAB LES Final Result Performing Organization Address City/[facility]/ZIP Co de Phone Number [facility] [address] [place] [phone] * Complement Component C4c (12/16/2024 11:02 AM EST) Complement C4 37 15 - 57 mg/dL [facility] Comment:THIS TEST WAS PERFOR MED AT:[address] [place] [phone] HAZEL MD 12/16/2024 11:0 2 AM EST 12/16/2024 11:02 AM EST Generic External Data Provider LAB BLOOD ORDERAB LES Final Result Performing Organization Address [facility]/ZIP Co de Phone Number [facility] [address] [place] [phone] * Complement Component C3c (12/16/2024 11:02 AM EST) Complement C3 162 83 - 193 mg/dL [facility] Comment:THIS TEST WAS PERFOR MED AT:[address] [place] [phone] HAZEL MD 12/16/2024 11:0 2 AM EST 12/16/2024 11:02 AM EST us Generic External Data Provider LAB BLOOD ORDERAB LES Final Result Performing Organization Address [facility] de Phone Number [facility] [address] [place] [phone] * (ABNORMAL) C-reactive Protein (12/16/2024 11:02 AM EST) Pathologist [facility] C Reactive Protein 0.72(H) < or = 0.50 mg/dL [facility] 12/16/2024 11:0 2 AM EST 12/16/2024 11:02 AM EST Generic External Data Provider LAB BLOOD ORDERAB LES Final Result Performing Organization Address [facility] de Phone Number [facility] [address] [place] [phone] * Comprehensive Metabolic Panel (12/16/2024 11:02 AM EST) Pathologist [facility] Sodium 141 135 - 145 mmol/L [facility] Potassium 4.0 3.3 - 5.1 mmol/L [facility] Chloride 108 96 - 108 mmol/L [facility] Carbon Dioxide 24 22 - 29 mmol/L [facility] Anion Gap 13 12 - 20 [facility] Urea Nitrogen (BUN) 11 9 - 16 mg/dL [facility] Creatinine, Serum 0.59 0.5 - 1.4 mg/dL [facility] Estimated Glomerular Filt Rate >60 [facility] Comment:Chronic Kidney Disea se: Estimated GFR < 60 mL/min/[id number] Kidney Disease: Estimated GFR < 15 mL/min/1.73m2 Glucose 89 60 - 115 mg/dL [facility] Calcium 9.8 8.4 - 10.2 mg/dL [facility] Bilirubin, Total 0.7 0.0 - 1.0 mg/dL [facility] Aspartate Amino Transferase 19 5 - 31 U/L [facility] Alanine Aminotransferase 19 0 - 31 U/L [facility] Total Protein 7.7 6.5 - 8.0 g/dL [facility] Albumin Level 3.9 3.5 - 5.0 g/dL [facility] Alkaline Phosphatase 63 39 - 117 U/L [facility] 12/16/2024 11:0 2 AM EST 12/16/2024 11:02 AM EST Generic External Data Provider LAB BLOOD ORDERAB LES Final Result Performing Organization Address [facility] Co de Phone Number [facility] [address] [place] [phone] * (ABNORMAL) Sed Rate by Modified Westergren (12/16/2024 11:02 AM EST) Erythrocyte Sedimentation Rate 27(H) 0 - 20 MM/HR [facility] Comment:Patients with polycy themia and many hemoglobin abnormalitiesmay have depressed sed rates whereas patients with anemiamay have elevated sed rates. 12/16/2024 11:0 2 AM EST 12/16/2024 11:02 AM EST us Generic External Data Provider LAB BLOOD ORDERAB LES Final Result Performing Organization Address [facility] Co de Phone Number [facility] [address] [place] [address] [phone] * (ABNORMAL) CBC auto differential (12/16/2024 11:02 AM EST) White Blood Count 6.3 4.8 - 10.8 X10*3/uL [facility] Red Blood Count 4.54 4.20 - 5.50 X10*6/uL [facility] Hemoglobin 12.1 12.0 - 16.0 g/dl [facility] Hematocrit 37.3 37.0 - 47.0 % [facility] Mean Corpuscular Volume 82.2 80.0 - 98.0 fL [facility] Mean Corpuscular Hemoglobin 26.7(L) 27.0 - 33.0 pg [facility] Mean Corpuscular HGB Conc 32.4 31.0 - 35.0 g/dl [facility] Red Cell Distribution Width 13.3 11.0 - 16.0 % [facility] Platelet Count 252 160 - 400 X10*3/uL [facility] Mean Platelet Volume 11.4 9.4 - 12.3 fL [facility] Neutrophils Percent Auto 63.0 45 - 73 % [facility] Imm Gran Pct Auto 0.3 0.0 - 0.4 % [facility] Lymphocytes Percent Auto 25.0 20 - 40 % [facility] Monocytes Percent Auto 9.5 2 - 11 % [facility] Eosinophils Percent Auto 1.9 0 - 4 % [facility] Basophils Percent Auto 0.3 0 - 2 % [facility] NRBC Pct Auto 0.0 0.0 - 0.2 /100WBC [facility] Neutrophils Absolute Auto 4.0 2.0 - 8.3 x10*3/uL [facility] Imm Gran Abs Auto 0.02 0.00 - 0.03 X10*3/uL [facility] Lymphocytes Absolute Auto 1.6 1.2 - 4.9 X10*3/uL [facility] Monocytes Absolute Auto 0.6 0.1 - 1.2 X10*3/uL [facility] Eosinophils Absolute Auto 0.1 0.0 - 0.4 X10*3/uL [facility] Basophils Absolute Auto 0.0 0.0 - 0.2 X10*3/uL [facility] NRBC Abs Auto 0.000 0.0 - 0.012 X10*3/uL [facility] 12/16/2024 11:0 2 AM EST 12/16/2024 11:02 AM EST us Generic External Data Provider LAB BLOOD ORDERAB LES Final Result Performing Organization Address [facility] Co de Phone Number [facility] [address] [place] [phone] * Protein Creatinine Ratio, Urine (12/16/2024 10:55 AM EST) Creatinine, Urine 195.42 mg/dL [facility] Protein, Total, Random Urine 11 <12 mg/dL [facility] Protein/Creati nine Ratio, Ur 0.06 <0.2 [facility] Comment:The spot urine prote in:creatinine ratio may increase to 0.3during normal . 12/16/2024 10:5 5 AM EST 12/16/2024 12:16 PM EST Generic External Data Provider LAB URINE ORDERAB LES Final Result Performing Organization Address [facility] Co de Phone Number [facility] [address] [place] [address] [phone] * (ABNORMAL) Urinalysis Complete (12/16/2024 10:55 AM EST) Color Urine Yellow [facility] Appearance Urine Clear [facility] PH 5.5 5.0 - 9.0 [facility] Glucose Urine UA Negative Negative mg/dL [facility] Urine Blood Negative Negative [facility] Specific [place] - Urine 1.025 1.005 - 1.025 [facility] Urine Protein Negative Neg-Trace mg/dL [facility] Urine Ketones Negative Negative mg/dL [facility] Nitrite Urine Negative Negative [facility] Leukocyte Esterase Urine Negative Negative [facility] RBC Urine 3-5(A) 0 - 2 /HPF [facility] Urine WBC 6-10(A) 0 - 5 /HPF [facility] Urine Squamous Epithelial Cell 11-20 0 - 2 /HPF [facility] Urine Bacteria 1+ None Seen [facility] Hyaline Casts, Urine 0-2 0 - 2 /LPF [facility] 12/16/2024 10:5 5 AM EST 12/16/2024 12:16 PM EST us Generic External Data Provider LAB URINE ORDERAB LES Final Result Performing Organization Address City/State/[facility] Co de Phone Number [facility] [address] [place] [phone] documented in this encounter Visit Diagnoses Not on filedocumented in this encounter Additional Health Concerns Assessment Noted Time PHQ-9 Depression Total Score: 11 023 2:43 PM EDT documented as of this encounter Care Teams Emergency Medical Services Coordinator Relationship Specialty Start Date End Date Kay Tamayo MD [address] [place] [address] PCP - General Family Medicine 11/01/20 documented as of this encounter
--- OUTSIDE RECORDS SUMMARY | 2025-01-05 11:25 | XMS_ITS | Encounter Summary ---
Author Organization [employer] Address [address] [facility] 7 [place] [address] Care Team Providers Care Core Feeder Name Role Phone Kay Tamayo MD Primary Care Provider [phone] Reason for Visit * Reason Comments Pre-visit Planning SDOH screening posit melvin and tobacco screening negative Encounter Details Date Type Department Care Team ([facility] st Contact Info) Description 12/19/2024 Patient Outreach [facility] [address] [place] [address] Kay Tamayo MD [address] [place] [address] Pre-visit Planning (SDOH screening positive and tobacco [...] Description 02/22/2025 4:00 PM EDT Office Visit [facility] [address] [place] [address] Kay Tamayo MD [address] [place] [address] documented as of this encounter Visit Diagnoses Not on filedocumented in this encounter Additional Health Concerns Assessment Noted Time PHQ-9 Depression Total Score: 11 023 2:43 PM EDT documented as of this encounter Care Teams Core Feeder Relationship Specialty Start Date End Date Kay Tamayo MD [address] [place] [address] PCP - General Family Medicine 11/01/20 documented as of this encounter
--- OUTSIDE RECORDS SUMMARY | 2025-01-05 11:25 | XMS_ITS | Encounter Summary ---
Author Organization [employer] Address [address] [facility] [address] [place] [address] Care Team Providers Care Supervisor Paint Department Name Role Phone Kay Tamayo MD Primary Care Provider [phone] Reason for Visit * Reason Comments Care Coordination CHW outreach for SDO H food needs-referral completed Encounter Details Date Type Department Care Team (Latest Contact Info) Description 12/19/2024 Patient Outreach [facility] [address] [place] [address] Kay Tamayo MD [address] [place] [address] Care Coordination (CHW outreach for SDOH food [...] Wednesdays, and Walk-In Urgent Care Located in [facility]. Patient provided with after-hours line for [facility], , which offer night time triage service and option to transfer to director of food and nutrition services provider if needed. documented in this encounter Plan of Treatment Upcoming Encounters Date Type Department Care Team (Late st Contact Info) Description 02/22/2025 4:00 PM EDT Office Visit [facility] [address] [place] [phone] Kay Tamayo MD [address] [place] [address] documented as of this encounter Visit Diagnoses Not on filedocumented in this encounter Additional Health Concerns Assessment Noted Time PHQ-9 Depression Total Score: 11 023 2:43 PM EDT documented as of this encounter Care Teams Supervisor Paint Department Relationship Specialty Start Date End Date Kay Tamayo MD [address] [place] [address] PCP - General Family Medicine 11/01/20 documented as of this encounter
--- OUTSIDE RECORDS SUMMARY | 2025-01-05 11:25 | XMS_ITS | Encounter Summary ---
Author Organization [employer] Address [address] [place] [address] Care Team Providers Care Tanning Wheel Filler Name Role Phone Kay Tamayo MD Primary Care Provider [phone] Reason for Visit * Reason Comments FMX Perio chart Routine Cleaning Dental Exam Encounter Details Date Type Department Care Team (Late st Contact Info) Description 01/04/2025 9:00 AM EST Office Visit [facility] [address] [place] [address] Susana Fink [address] [place] [address] Dental calculus (Primary Dx); Gingival bleeding; Acute gingival inflammation; Periodontal disease; Tipped teeth; Rotated tooth; Dental caries Social History Tobacco Use Types Packs/Day Years [...] AM EDT documented as of this encounter Last Filed Vital Signs Vital Sign Reading Time Taken Comments Blood Pressure 136/74 01/04/2025 8:47 AM EST Pulse - - Temperature - - Respiratory Rate - - Oxygen Saturation - - Inhaled Oxygen Concentration - - Weight - - Height - - Body Mass Index - - documented in this encounter Progress Notes * Susana Fink - 01/04/2025 9:00 AM EST Patient ID: Yuko Uribe is a 59 y.o. female. Time Out: Timeout Date: 01/04/25, Timeout Time: 0859 (FMX, Prophy, P. exam, Perio chart) Location: [facility] Tooth: Maxilla and Mandible Procedure: gross scaling, perio chart, panorex :P. Exam: Pt will like Dr. Martinez to do exam. Took Panorex due to Pt was claiming that she felt like vomitting and would not allow me to take intraoral radiographs. Verified the above with patient, supply chain assistant, and provider. Confirmed via patient's chart, intraorally and by radiographs. Forging Dies Final Finisher: not applicable Medical Hx: Vitals: Blood pressure 136/74. Medications, Med Hx reviewed with patient and updated in chart. Treatment Provided Dental procedures in this visit D1110 - PROPHYLAXIS - ADULT (Completed) Service provider: Susana Fink Billing provider: Axel Martinez DDS D1330 - ORAL HYGIENE INSTRUCTIONS (Completed) Service provider: Susana Fink [place] provider: Axel Martinez DDS D9450 - ADJUNCTIVE GENERAL SERVICES - PROFESSIONAL VISITS - CASE PRESENTATION, SUBSEQUENT TO DETAILED AND EXTENSIVE TREATMENT PLANNING (Completed) Service provider: Susana Fink [place] provider: Axel Martinez DDS D0330 - PANORAMIC RADIOGRAPHIC IMAGE (Completed) Service provider: Susana Fink [place] provider: Axel Martinez DDS Instruments Used: Ultrasonic Scalers Fluoride: N/A Oral Cancer Screening: No lesions Head/Neck Exam: No Lesions Calculus: Moderate and Heavy Plaque: Moderate Stain: Light Bleeding: Light and Moderate Gingiva: Perio Charting Completed, Bleeding on probing, and Recession- localized, bulbous , bleeding gingiva OH: Needs to improve. Perio Chart: Completed: 2 mm to 6 mm in depths. Requestinf 4 quads SRP [id number]. Took Panorex due to Pt was claiming that she felt like vomitting and would not allow me to take intraoral Oral hygiene instructions provided to patient including brushing technique and flossing. Recommendations: [place] two times daily, modified cruz technique, Floss daily, Electric toothbrush, Soft bristle toothbrush, [place] Tongue, Anti-sensitivity toothpaste Recall Frequency: SRP if approved NV: Dr. Martinez for restorations Hygienist: Susana Fink RDH * Axel Martinez DDS - 01/04/2025 9:00 AM EST Dental procedures in this visit D1110 - PROPHYLAXIS - ADULT (Completed) Service provider: Susana Fink [place] provider: Axel Martinez DDS D1330 - ORAL HYGIENE INSTRUCTIONS (Completed) Service provider: Susana Choe provider: Axel Martinez DDS D9450 - ADJUNCTIVE GENERAL SERVICES - PROFESSIONAL VISITS - CASE PRESENTATION, SUBSEQUENT TO DETAILED AND EXTENSIVE TREATMENT PLANNING (Completed) Service provider: Susana Fink [place] provider: Axel Martinez DDS D0330 - PANORAMIC RADIOGRAPHIC IMAGE (Completed) Service provider: Susana Choe provider: Axel Martinez DDS D0120 - PERIODIC ORAL EVALUATION - ESTABLISHED PATIENT (Completed) Service provider: Axel Martinez DDS Billing provider: Axel Martinez DDS Patient ID: Yuko Uribe is a 59 y.o. female. Time Out: Timeout Date: 01/04/25, Timeout Time: 0859 (FMX, Prophy, P. exam, Perio chart) Location: [facility] Tooth: Maxilla and Mandible Procedure: Exam, X-rays, and Prophylaxis Verified the above with patient, supply chain assistant, and provider. Confirmed via patient's chart, intraorally and by radiographs. Forging Dies Final Finisher: not applicable Chief Complaint Patient presents with FMX Perio chart Routine Cleaning Dental Exam Medical Hx: Vitals: Blood pressure 136/74. Past Medical History: Diagnosis Date Choroidal nevus, right COVID-19 01/06/2022 Depression with anxiety Elevated cholesterol Familial drusen of both eyes Lupus History of Plaquenil. Stopped in 09/2023. Prediabetes Medications: Outpatient Encounter Medications as of 01/04/2025 Medication Sig Dispense Refill Acetaminophen 160 MG/5ML syrup Take 10 mL (320 mg) by mouth Every 4-6 hours as needed (headache). 900 mL 11 ascorbic acid (Vitamin C) 250 MG chewable tablet Chew 1 tablet (250 mg) in the morning. 90 tablet 3 Blood Pressure Monitoring (Omron 3 Series BP Monitor) device USE TO CHECK BLOOD PRESSURE DIRECTED Calcium Carb-Cholecalciferol (Calcium-Vitamin D3) 250-125 MG-UNIT tablet Take 1 tablet by mouth 2 times daily. FLUoxetine (PROzac) 20 MG capsule Take 1 capsule (20 mg) by mouth Once per day. 90 capsule 3 ibuprofen 600 MG tablet TAKE 1 TABLET BY MOUTH THREE TIMES DAILY FOR 10 DAYS 90 tablet 2 Liquid Pain Relief 160 MG/5ML liquid TAKE 10 ML BY MOUTH EVERY 4 TO 6 HOURS NEEDED FOR HEADACHE LORazepam (Ativan) 0.5 MG tablet TAKE 1 TABLET BY MOUTH EVERY DAY NEEDED FOR SEVERE ANXIETY / PANIC ATTACK Multiple Vitamin (Multi-Vitamin) tablet Take 1 tablet by mouth in the morning. 90 tablet 3 nortriptyline (Pamelor) 10 MG capsule Take 1 capsule (10 mg) by mouth at bedtime. 90 capsule 3 polyvinyl alcohol (Liquifilm Tears) 1.4 % ophthalmic solution one drop in each eye 4 times a day ormore. simvastatin (Zocor) 10 MG tablet Take 1 tablet (10 mg) by mouth at bedtime. 90 tablet 3 tiZANidine (Zanaflex) 4 MG tablet TAKE 1 TABLET BY MOUTH AT BEDTIME FOR MUSCLE SPASMS traZODone (Desyrel) 50 MG tablet TAKE 1/2 TABLET BY MOUTH AT BEDTIME NEEDED FOR SLEEP Vitamin D, Cholecalciferol, 10 MCG (400 UNIT) chewable tablet Chew 2 tablets in the morning. 180 tablet 3 [DISCONTINUED] clonazePAM (KlonoPIN) 0.5 MG tablet Take 0.5 mg by mouth if needed in the morning and at bedtime. No facility-administered encounter medications on file as of 01/04/2025. Objective HPI Slight sensitivity on price. Left side. Head and Neck Exam: Lymph Nodes, Lips, Palate, Buccal Mucosa, Floor of Mouth, Tongue, Tonsils, Alveolar Ridges, Oropharynx, Salivary Ducts, and Vestibules normal appearance Details: Skin WNL OCS: negative Dental Exam As charted Gag reflex (unable to take PA X rays today / ok for Pano) Plaque Partially edentulous RPD functionating well Reference tooth chart for additional findings. Oral Cancer Risk: Low Risk Oral Hygiene Instructions: [place] two times daily, modified cruz technique, Floss daily, Electric toothbrush, Soft bristle toothbrush, [place] Tongue Caries Risk Assessment: Medium- one risk factor two caries as charted Assessment/Plan AIDAN X rays Prophy Restorations Recall Patient tolerated procedure well, all questions answered and expressed understanding. Dismissed in good condition. NV: [employer] Teacher: Susana Fink Dentist: Axel Martinez DDS documented in this encounter Plan of Treatment Upcoming Encounters Date Type Department Care Team (Late st Contact Info) Description 02/22/2025 4:00 PM EDT Office Visit [facility] [address], [place] [phone] Kay Tamayo MD [address], [place] [phone] Scheduled Orders Name Type Priority Associated Diagnoses Orde r Schedule LL LL PERIODONTAL SCALING AND ROOT PLANING - 4 OR MORE TEETH PER QUADRANT Dental Routine [address] [facility] 01/04/2025 UL UL PERIODONTAL SCALING AND ROOT PLANING - 4 OR MORE TEETH PER QUADRANT Dental Routine [address] [facility] 01/04/2025 UR UR PERIODONTAL SCALING AND ROOT PLANING - 4 OR MORE TEETH PER QUADRANT Dental Routine [address] [facility] 01/04/2025 LR LR PERIODONTAL SCALING AND ROOT PLANING - 4 OR MORE TEETH PER QUADRANT Dental Routine [address] [facility] 01/04/2025 documented as of this encounter Procedures Procedure Name Priority Date/Time Associated Diagnosis Comments PROPHYLAXIS - ADULT Routine 01/04/2025 9 :00 AM EST Dental calculus Gingival bleeding Acute gingival inflammation Periodontal disease PERIODIC ORAL EVALUATION - ESTABLISHED PATIENT Routine 01/04/2025 9:00 AM EST PANORAMIC RADIOGRAPHIC IMAGE Routine 01/04/2025 9:00 AM EST Dental calculus Gingival bleeding Acute gingival inflammation Periodontal disease Tipped teeth Rotated tooth ORAL HYGIENE INSTRUCTIONS Routine 01/04/2025 9:00 AM EST Dental calculus Gingival bleeding Acute gingival inflammation Periodontal disease Tipped teeth Rotated tooth CASE PRESENTATION, DETAILED AND EXTENSIVE TREATMENT PLANNING Routine 01/04/2025 9:00 AM EST Dental calculus Gingival bleeding Acute gingival inflammation Periodontal disease Tipped teeth Rotated tooth 29 EXTRACTION Routine 01/04/2025 12:00 AM EST documented in this encounter Visit Diagnoses Diagnosis Dental calculus- Primary Accretions on teeth Gingival bleeding Other specified periodontal diseases Acute gingival inflammation Acute gingivitis, plaque induced Periodontal disease Unspecified gingival and periodontal disease Tipped teeth Horizontal displacement of teeth Rotated tooth Dental caries Unspecified dental caries documented in this encounter Additional Health Concerns Assessment Noted Time PHQ-9 Depression Total Score: 2 12/30/19 25 11:00 AM EST documented as of this encounter Care Teams Tanning Wheel Filler Relationship Specialty Start Date End Date Kay Tamayo MD [address] [place] [address] PCP - General Family Medicine 11/01/20 documented as of this encounter
--- OUTSIDE RECORDS SUMMARY | 2025-01-05 11:25 | XMS_ITS | Clinical Summary ---
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 Role Phone Kay Tamayo MD Primary Care Provider [phone] Allergies Active Allergy Reactions Criticality Noted Date Comments Amoxicillin Hives,Rash Medium 12/01/2022 Clavulanic Acid Hives,Rash Medium 09/21/2015 Other reaction(s): Hives/Skin Rash Metformin Dizziness 08/29/2022 Penicillins Hives,Rash Medium 09/21/2015 Other reaction(s): Hives/Skin Rash Medications Blood Pressure Monitoring (Omron 3 Series BP Monitor) device USE TO CHECK BLOOD PRESSURE DIRECTED 2 Active ibuprofen 600 MG tabletIndications: Fibromyalgia TAKE 1 TABLET BY MOUTH THREE TIMES DAILY FOR 10 DAYS 90 tablet 2 3 Active Multiple Vitamin (Multi-Vitamin) tablet Take [...] 3 4 Active nortriptyline (Pamelor) 10 MG capsuleIndications :Fibromyalgia Take 1 capsule (10 mg) by mouth at bedtime. 90 capsule 3 4 025 Active FLUoxetine (PROzac) 20 MG capsule Take 1 capsule (20 mg) by mouth Once per day. 90 capsule 3 4 025 Active traZODone (Desyrel) 50 MG tablet TAKE 1/2 TABLET BY MOUTH AT BEDTIME NEEDED FOR SLEEP 4 Active LORazepam (Ativan) 0.5 MG tablet TAKE 1 TABLET BY MOUTH EVERY DAY NEEDED FOR SEVERE ANXIETY / PANIC ATTACK 5 Active tiZANidine (Zanaflex) 4 MG tablet TAKE 1 TABLET BY MOUTH AT BEDTIME FOR MUSCLE SPASMS 5 Active Liquid Pain Relief 160 MG/5ML liquid TAKE 10 ML BY MOUTH EVERY 4 TO 6 HOURS NEEDED FOR HEADACHE 5 Active polyvinyl alcohol (Liquifilm Tears) 1.4 % ophthalmic solution one drop in each eye 4 times a day or more. 0 025 Discontin ued(Thera py completed ) Calcium Carb-Cholecalcifer ol (Calcium-Vitamin D3) 250-125 MG-UNIT tablet Take 1 tablet by mouth 2 times daily. 2 025 Discontin ued(Thera py completed ) simvastatin (Zocor) 10 MG tabletIndications: Other hyperlipidemia Take 1 tablet (10 mg) by mouth at bedtime. 90 tablet 3 3 025 Discontin ued(Thera py completed ) clonazePAM (KlonoPIN) 0.5 MG tablet Take 0.5 mg by mouth if needed in the morning and at bedtime. 3 025 Discontin ued(Thera py completed ) Active Problems Problem Noted Date Diagnosed Date Gingival bleeding 01/04/2025 Periodontal disease 01/04/2025 Tipped teeth 01/04/2025 Rotated tooth 01/04/2025 Dental caries 01/04/2025 Class 1 obesity with serious comorbidity and body mass index (BMI) of 32.0 to 32.9 in adult 01/04/2025 Right hip pain 01/04/2025 Abnormal x-ray of spine 01/04/2025 Assessment & Plan (01/04/2025 2:51 PM EST): Patient has tried topical treatment, oral medications, and physician supervised walk plan without improvement in her R hip and spine pain. - will refer for MRI to rule out spinal nerve compression Primary insomnia 09/14/2023 Assessment & Plan (09/14/2023 [...] PM EDT): Encouraged picking up of statin Anxiety 08/16/2018 Assessment & Plan (09/14/2023 1:29 [...] (04/26/2024 1:19 PM EDT): Continue Fluoxetine, Elavil Resolved Problems Problem Noted Date Diagnosed Date Resolved Date Dental calculus 01/04/2025 01/04/2025 Acute gingival inflammation 01/04/2025 01/04/2025 COVID-19 01/08/2022 01/04/2025 Lupus erythematosus 07/01/2019 01/04/20 25 Assessment & Plan (09/01/2024 4:19 PM EDT): Will order RICCO to again check on this question of possible lupus (does have butterfly rash and joint pain in multiple locations) Also sed rate, CRP, CMP Obesity (BMI 30-39.9) 11/11/20182024 Assessment & Plan (02/10/2023 1:29 PM EDT): S/p gastric bypass Working on sleep Encounters Date Type Department Care Team Description 01/04/2025 9:00 AM EST Office Visit [facility] [address] [place] [address] Susana Fink Dental calculus (Primary Dx); Gingival bleeding; Acute gingival inflammation; Periodontal disease; Tipped teeth; Rotated tooth; Dental caries 12/30/2024 11:00 AM EST Telemedicine [address] [address] Kay Tamayo MD Primary insomnia (Primary Dx); Mood disorder (CMS/HCC); Dietary counseling; Exercise counseling; Class 1 obesity with serious comorbidity and body mass index (BMI) of 32.0 to 32.9 in adult, unspecified obesity type; Essential hypertension; Right hip pain; Abnormal x-ray of spine 12/26/2024 10:00 AM EST Office Visit [facility] [address] [place], [place] [phone] Darryn, Alina, OD Familial drusen of both eyes (Primary Dx); History of long-term treatment with high-risk medication; White without pressure of peripheral retina of both eyes; Choroidal nevus, right eye; Choroidal nevus, left eye; Astigmatism of both eyes with presbyopia 12/26/2024 Travel 12/22/2024 Orders Only GENERIC EXTERNAL DATA DEPARTMENT Provider, Generic External Data 12/19/2024 Patient Outreach [address] [address] Kay Tamayo MD Care Coordination (CHW outreach for SDOH food needs-referral completed /) 12/19/2024 Patient Outreach [address] [phone] Kay Tamayo MD Pre-visit Planning (SDOH screening positive and tobacco screening negative) 12/16/2024 Orders Only GENERIC EXTERNAL DATA DEPARTMENT Provider, Generic External Data 11/18/[address] [phone] Kay Tamayo MD No Show 11/09/2024 Patient Outreach [address] [phone] Kay Tamayo MD Pre-visit Planning ([facility] screening completed on 04/12/2024) 10/31/2024 Telephone [facility] [address] [facility] [place] [address] Marcie Roman, RN Results 10/30/2024 Orders Only [facility] [address] [facility] [place] [address] Kay Tamayo MD Microscopic hematuria (Primary Dx) [...] Pressure 136/74 01/04/2025 8:47 AM EST Pulse 81 04/22/2024 3:54 PM EDT Temperature [...] Description 02/22/2025 4:00 PM EDT Office Visit [facility] [address] [place] [address] Kay Tamayo MD [address] [place] [address] Health Maintenance Due Date Last Done Comments CT Colonography 1964 FIT DNA/Cologuard 1964 FIT 1964 FOBT 1964 Sigmoidoscopy 1964 Alcohol/Substance Use Screening 1976 Pneumococcal Vaccine: 50+ Years (1 of 1 - PCV) 2014 Colonoscopy 05/29/2021 05/29/2016 Colorectal Cancer Screening 05/29/2021 Dental X-Ray: Bitewings 08/23/2022 08/22/20 21, 11/25/2019, 07/09/2018, Additional history exists Pap Smear 03/15/2024 03/15/2021 COVID-19 Vaccine ( season) 2024 04/08/2022, 04/08/2022, 08/22/2021, Additional history exists Influenza Vaccine (#1) 2024 , 09/19/2020, 09/30/2019, Additional history exists Mammogram 12/15/2024 12/15/2023, 11/23, 12/09/2022, Additional history exists Dental Oral Exam 07/05/2025 01/04/2025, , 11/25/2019, Additional history exists Dental Prophylaxis 07/05/2025 01/04/2025, 0 08/22/2021, 11/25/2019, Additional history exists Diabetes: Hemoglobin A1C 09/02/2025 024, 01/21/2023, 07/23/2022, Additional history exists SDOH Screening 12/19/2025 12/19/2024 Depression Screening 12/30/2025 12/30/2024, 12/30/19 25 Tobacco Screening 01/04/2026 01/04/2025 Cervical Cancer Screening 03/15/2026 HPV/Cotest 03/15/2026 03/15/2021 DTaP/Tdap/Td Vaccines (2 - Td or Tdap) 07/18/2026 07/18/2016 Dental X-Ray: Full Mouth 01/05/2028 025, 11/25/2019, 03/06/2016 Lipid Panel 09/02/2029 09/02/2024, 08/11/2021, 01/07/2022, Additional history exists RSV Patients and [...] Procedure Name Priority Date/Time Associated Diagnosis Comments PERIODIC ORAL EVALUATION - ESTABLISHED PATIENT Routine [...] inflammation Periodontal disease Tipped teeth Rotated tooth PROPHYLAXIS - ADULT Routine 01/04/2025 9 :00 AM EST Dental calculus Gingival bleeding Acute gingival inflammation Periodontal disease 29 EXTRACTION Routine 01/04/2025 12:00 AM EST URINALYSIS, COMPLETE Routine 12/22/2024 10:50 AM EST CULTURE, URINE, ROUTINE Routine 12/22/2024 12:00 AM EST LUPUS ANTICOAGULANT EVALUATION WITH REFLEX Routine 12/16/2024 11:02 AM EST DNA (DS) ANTIBODY Routine 12/16/2024 11: 02 AM EST SM AND SM/PRIVATE MORTGAGE BANKER SAFE ANTIBODIES Routine 12/16/2024 11:02 AM EST SJOGREN'S [...] TOMOSYNTHESIS BILATERAL Routine 12/15/2023 9:00 AM EST BITEWINGS - 4 RADIOGRAPHIC IMAGES Routine 08/22/2021 12:00 AM EDT HPV MRNA E6/E7 REFLEX TO HPV 16, 18/45 Routine 03/15/2021 1:47 PM EDT THINPREP IMAGING SYSTEM PAP Routine 03/15/2021 1:47 PM EDT HM COLONOSCOPY Routine 05/29/2016 from Last 3 Months or Most Recently Relevant to Health Maintenance Results * Urinalysis Complete (12/22/2024 10:50 AM EST) Only the most recent of2 resultswithin the time period is included. Color Urine Yellow [facility] Appearance Urine Cloudy [facility] PH 6.5 5.0 - 9.0 [facility] Glucose Urine UA Negative Negative mg/dL [facility] Urine Blood Negative Negative [facility] Specific [place] - Urine 1.025 1.005 - 1.025 [facility] Urine Protein Negative Neg-Trace mg/dL [facility] Urine Ketones Negative Negative mg/dL [facility] Nitrite Urine Negative Negative [facility] Leukocyte Esterase Urine Negative Negative [facility] RBC Urine 0-2 0 - 2 /HPF [facility] Urine WBC 0-5 0 - 5 /HPF [facility] Urine Squamous Epithelial Cell 3-5 0 - 2 /HPF [facility] TRANSITIONAL (EPITHELIAL) CELLS (#/HPF) IN URINE Present [facility] Urine Bacteria 1+ None Seen [facility] Hyaline Casts, Urine 0-2 0 - 2 /LPF [facility] 12/22/2024 10:5 0 AM EST 12/22/2024 12:00 PM EST us Generic External Data Provider LAB URINE ORDERAB LES Final Result [facility] [address] [place] [phone] * Culture, Urine, Routine (12/22/2024 12:00 AM EST) Urine Urine specimen obtained by clean catch procedure / Unknown 12/22/2024 12/22/2024 Comment:UACC Narrative [facility] - 12/23/2024 9:12 AM EST Urine Culture Report Result Urine Culture 10,000 to 50,000 cfu/ml Urine Culture Mixed bacterial desiree characteristic of Urine Culture urogenital contamination. Specimen Source: Urine clean catch Generic External Data Provider LAB MICROBIOLOGY - GENERAL ORDERABLES Final Result Performing Organization Address [facility] Co de Phone Number [facility] [address] [place] [phone] * DNA (ds) Antibody, Crithidia IFA with Reflex to Titer (12/16/2024 11:02 AM EST) DNA AB(DS) Crithidia, IFA Negative Negative [facility] Comment:THIS TEST WAS PERFOR MED AT:[facility] [place] [address]REKRBFBMAGAN KOTHARI MD,PHD DNA AB (DS) CRITHIDIA, ADDITIONAL TESTING [facility] DNA (DS) Antibody Crithidia [facility] 12/16/2024 11:0 2 AM EST 12/16/2024 11:02 AM EST Generic External Data Provider LAB BLOOD ORDERAB LES Final Result Performing Organization Address [facility] Co de Phone Number [facility] [address] [place] [phone] * Sm and Sm/PRIVATE MORTGAGE BANKER SAFE Antibodies (12/16/2024 11:02 AM EST) SM Antibody <1.0 NEG <1.0 NEG AI [facility] SM/PRIVATE MORTGAGE BANKER SAFE Antibody <1.0 NEG <1.0 NEG [facility] Comment:THIS TEST WAS PERFOR MED AT:[facility] [address] [phone] HAZEL MD 12/16/2024 11:0 2 AM EST 12/16/2024 11:02 AM EST us Generic External Data Provider LAB BLOOD ORDERAB LES Final Result Performing Organization Address [facility] Co de Phone Number [facility] [address] [place] [phone] * Sjogren's Antibodies (SS-A,SS-B) (12/16/2024 11:02 AM EST) Sjogren's Antibody (SS-A) <1.0 NEG <1.0 NEG [facility] Sjogren's Antibody (SS-B) <1.0 NEG <1.0 NEG [facility] Comment:THIS TEST WAS PERFOR MED AT:[facility] [place] [phone] HAZEL MD 12/16/2024 11:0 2 AM EST 12/16/2024 11:02 AM EST us Generic External Data Provider LAB BLOOD ORDERAB LES Final Result Performing Organization Address [facility] Co de Phone Number [facility] [address] [place] [phone] * (ABNORMAL) CBC auto differential (12/16/2024 11:02 AM EST) White Blood Count 6.3 4.8 - 10.8 X10*3/uL [facility] Red Blood Count 4.54 4.20 - 5.50 X10*6/uL [facility] Hemoglobin 12.1 12.0 - 16.0 g/dl [facility] Hematocrit 37.3 37.0 - 47.0 % [facility] Mean Corpuscular Volume 82.2 80.0 - 98.0 fL [facility] Mean Corpuscular Hemoglobin 26.7(L) 27.0 - 33.0 pg [facility] Mean Corpuscular HGB Conc 32.4 31.0 - 35.0 g/dl [facility] Red Cell Distribution Width 13.3 11.0 - 16.0 % [facility] Platelet Count 252 160 - 400 X10*3/uL [facility] Mean Platelet Volume 11.4 9.4 - 12.3 fL [facility] Neutrophils Percent Auto 63.0 45 - 73 % [facility] Imm Gran Pct Auto 0.3 0.0 - 0.4 % [facility] Lymphocytes Percent Auto 25.0 20 - 40 % [facility] Monocytes Percent Auto 9.5 2 - 11 % [facility] Eosinophils Percent Auto 1.9 0 - 4 % [facility] Basophils Percent Auto 0.3 0 - 2 % [facility] NRBC Pct Auto 0.0 0.0 - 0.2 /100WBC [facility] Neutrophils Absolute Auto 4.0 2.0 - 8.3 x10*3/uL [facility] Imm Gran Abs Auto 0.02 0.00 - 0.03 X10*3/uL [facility] Lymphocytes Absolute Auto 1.6 1.2 - 4.9 X10*3/uL [facility] Monocytes Absolute Auto 0.6 0.1 - 1.2 X10*3/uL [facility] Eosinophils Absolute Auto 0.1 0.0 - 0.4 X10*3/uL [facility] Basophils Absolute Auto 0.0 0.0 - 0.2 X10*3/uL [facility] NRBC Abs Auto 0.000 0.0 - 0.012 X10*3/uL [facility] 12/16/2024 11:0 2 AM EST 12/16/2024 11:02 AM EST us Generic External Data Provider LAB BLOOD ORDERAB LES Final Result [facility] [address] [place] [phone] [phone] * DNA (ds) Antibody (12/16/2024 11:02 AM EST) Anti DNA DS Antibody 1 IU/mL [facility] Comment:IU/mL Interpretation < or = 4 Negative 5-9 Indeterminate > or = 10 PositiveTHIS TEST WAS PERFORMED AT:[facility] [address] [phone] HAZLE MD 12/16/2024 11:0 2 AM EST 12/16/2024 11:02 AM EST Generic External Data Provider LAB BLOOD ORDERAB LES Final Result Performing Organization Address [facility] Co de Phone Number [facility] [address] [place] [phone] * Lupus Anticoagulant Evaluation with Reflex (12/16/2024 11:02 AM EST) Lupus Interpretation see note [facility] Comment:A Lupus Anticoagulan t is not detected.Reference Range: Not DetectedFor additional information, please refer tohttp://education.GameFly/faq/XLF99k9(This link is being provided for informational/educational purposes only.)This interpretation is based on the following testresults. PTT (LAC) Screen 32 <=40 sec [facility] DRVVT Screen 31 <=45 sec [facility] Comment:THIS TEST WAS PERFOR MED AT:[facility] [place] [address]WEUEICNMAGAN KOTHARI MD,PHD dRVVT Confirmation TNP [facility] dRVVT 1:1 Mix [facility] DRVVT 1:1 Mix Interpretation [facility] Hexagonal Phase Neutralization TNP [facility] Thrombin Clotting Time [facility] 12/16/2024 11:0 2 AM EST 12/16/2024 11:02 AM EST us Generic External Data Provider LAB BLOOD ORDERAB LES Final Result Performing Organization Address [facility]/ZIP Co de Phone Number [facility] [address] [place] [address] [phone] * (ABNORMAL) Sed Rate by Modified Sayergren (12/16/2024 11:02 AM EST) Erythrocyte Sedimentation Rate 27(H) 0 - 20 MM/HR [facility] Comment:Patients with polycy themia and many hemoglobin abnormalitiesmay have depressed sed rates whereas patients with anemiamay have elevated sed rates. 12/16/2024 11:0 2 AM EST 12/16/2024 11:02 AM EST Generic External Data Provider LAB BLOOD ORDERAB LES Final Result Performing Organization Address City/[facility]/ZIP Co de Phone Number [facility] [address] [place] [phone] * Complement Component C3c (12/16/2024 11:02 AM EST) Complement C3 162 83 - 193 mg/dL [facility] Comment:THIS TEST WAS PERFOR MED AT:[facility] [place] [id number] HAZEL MD 12/16/2024 11:0 2 AM EST 12/16/2024 11:02 AM EST Generic External Data Provider LAB BLOOD ORDERAB LES Final Result Performing Organization Address City/[facility]/ZIP Co de Phone Number [facility] [address] [place] [phone] * Complement Component C4c (12/16/2024 11:02 AM EST) Complement C4 37 15 - 57 mg/dL [facility] Comment:THIS TEST WAS PERFOR MED AT:[facility] [place] [address]WLPPFWILL HAZEL MD 12/16/2024 11:0 2 AM EST 12/16/2024 11:02 AM EST us Generic External Data Provider LAB BLOOD ORDERAB LES Final Result Performing Organization Address City/[facility]/ZIP Co de Phone Number [facility] [address] [place] [address] [phone] * (ABNORMAL) C-reactive Protein (12/16/2024 11:02 AM EST) Pathologist [facility] C Reactive Protein 0.72(H) < or = 0.50 mg/dL [facility] 12/16/2024 11:0 2 AM EST 12/16/2024 11:02 AM EST Generic External Data Provider LAB BLOOD ORDERAB LES Final Result Performing Organization Address [facility] Co de Phone Number [facility] [address] [place] [address] [phone] * RICCO Screen,IFA, with Reflex to Titer and Pattern (12/16/2024 11:02 AM EST) Pathologist [facility] Anti Nuclear Antibody Screen NEGATIVE NEGATIVE [facility] Comment:RICCO IFA is a first [...] clinicallysuspected inflammatory myopathies.AC-0: NegativeInternational Consensus on RICCO Patterns(https://doi.org/10.1515/qssp-3870-1521)For additional information, please refer tohttp://education.Simplebooklet.SkillBridge/faq/GSI166(This link is being provided for informational/educational purposes only.)THIS TEST WAS PERFORMED AT:[facility] [place] [phone] HAZEL MD RICCO Titer TNP [facility] RICCO Pattern [facility] RICCO TITER 2 (REF LAB) [facility] Pattern 2 [facility] TITER 3 [facility] RICCO PATTERN 3 [facility] 12/16/2024 11:0 2 AM EST 12/16/2024 11:02 AM EST us Generic External Data Provider LAB BLOOD ORDERAB LES Final Result [facility] [address] [place] [address] [phone] * Comprehensive Metabolic Panel (12/16/2024 11:02 AM EST) Sodium 141 135 - 145 mmol/L [facility] Potassium 4.0 3.3 - 5.1 mmol/L [facility] Chloride 108 96 - 108 mmol/L [facility] Carbon Dioxide 24 22 - 29 mmol/L [facility] Anion Gap 13 12 - 20 [facility] Urea Nitrogen (BUN) 11 9 - 16 mg/dL [facility] Creatinine, Serum 0.59 0.5 - 1.4 mg/dL [facility] Estimated Glomerular Filt Rate >60 [facility] Comment:Chronic Kidney Disea se: Estimated GFR < 60 mL/min/1.04z0Rfrvxs Kidney Disease: Estimated GFR < 15 mL/min/1.73m2 Glucose 89 60 - 115 mg/dL [facility] Calcium 9.8 8.4 - 10.2 mg/dL [facility] Bilirubin, Total 0.7 0.0 - 1.0 mg/dL [facility] Aspartate Amino Transferase 19 5 - 31 U/L [facility] Alanine Aminotransferase 19 0 - 31 U/L [facility] Total Protein 7.7 6.5 - 8.0 g/dL [facility] Albumin Level 3.9 3.5 - 5.0 g/dL [facility] Alkaline Phosphatase 63 39 - 117 U/L [facility] 12/16/2024 11:0 2 AM EST 12/16/2024 11:02 AM EST us Generic External Data Provider LAB BLOOD ORDERAB LES Final Result Performing Organization Address [facility] Co de Phone Number [facility] [address] [place] [phone] * Protein Creatinine Ratio, Urine (12/16/2024 10:55 AM EST) Creatinine, Urine 195.42 mg/dL [facility] Protein, Total, Random Urine 11 <12 mg/dL [facility] Protein/Creati nine Ratio, Ur 0.06 <0.2 [facility] Comment:The spot urine prote in:creatinine ratio may increase to 0.3during normal . 12/16/2024 10:5 5 AM EST 12/16/2024 12:16 PM EST us Generic External Data Provider LAB URINE ORDERAB LES Final Result Performing Organization Address [facility] Co de Phone Number [facility] [address] [place] [phone] * Hepatitis C Antibody with Reflex to HCV, RNA, Quantitative, Real-Time PCR (09/02/2024 8:20 AM EDT) Hepatitis C Antibody Nonreactive Nonreactive [facility] Comment:Antibodies to HCV no t detected; does not exclude early acuteHCV infection. Blood Venous blood specimen / Unknown 09/02/2024 8:20 AM EDT 09/02/2024 11:09 AM EDT us Kay Tamayo MD LAB BLOOD ORDERABLES Final Res ult Performing Organization Address [facility] Co de Phone Number [facility] [address] [place] [phone] * HIV-1/2 Antigen and Antibodies, Fourth Generation, with Reflexes (09/02/2024 8:20 AM EDT) HIV AB/AG Nonreactive Nonreactive [facility] Comment:HIV-1 p24 Ag and/or HIV-1/HIV-2 Ab not detected.A test result that is nonreactive does not exclude thepossibility of exposure to or infection with HIV-1 and/orHIV-2. Nonreactive results in this assay for individualswith prior exposure to HIV-1 and/or HIV-2 may be due toantigen and antibody levels that are below the limit ofdetection of this assay.The [employer] BiosciencesniReds10 HIV Ag/Ab Combo assay result andsupplemental assay results should be interpreted inconjunction with the patient's clinical presentation,history and other laboratory results. If the results areinconsistent with clinical evidence, additional testing issuggested to confirm the result. Blood Venous blood specimen / Unknown 09/02/2024 8:20 AM EDT 09/02/2024 11:09 AM EDT Kay Tamayo MD LAB BLOOD ORDERABLES Final Res ult [facility] [address] [place] [phone] * Hemoglobin A1c (09/02/2024 8:20 AM EDT) Hemoglobin A1c 6.0 <6.0 % [facility] Comment:Hemoglobin A1C Refer ence Range Adults: 4.8 - 6.0 % Non diabetic: < 6.0 % Goal: < 7.0 %Additional Action Suggested: > 8.0 %Note: Hemoglobin A1c results are invalid for patients with abnormal amounts of HbF. Blood transfusions may impact the HbA1c concentration in the patient sample. Estimated Average Glucose 126 mg/dL [facility] Comment:eAG = Estimated ave rage glucose which is %A1C expressed asaverage glucose, using the formula of the Z3J-XvfdwinImeowgy Glucose study (ADAG), Diabetes Care, Vol.31,#8,Jun. 2007 Blood Venous blood specimen / Unknown 09/02/2024 8:20 AM EDT 09/02/2024 11:09 AM EDT Kay Tamayo MD LAB BLOOD ORDERABLES Final Res ult Performing Organization Address City/[facility] Co de Phone Number [facility] [address] [place] [address] [phone] * (ABNORMAL) Lipid Panel, Standard (09/02/2024 8:20 AM EDT) Triglycerides 99 <150 mg/dL [facility] Comment:Desirable Triglyceri de: less than 150 mg/dLBorderline High Triglyceride 150-199 mg/dLHigh Triglyceride: 200-499 mg/dLVery High Triglyceride: greater than or equal to 5OO mg/dL Cholesterol 262(H) <200 mg/dL [facility] Comment:Desirable Cholestero l: less than 200 mg/dLBorderline High Cholesterol: 200-239 mg/dLHigh Cholesterol: greater than 239 mg/dL LDL Cholesterol Calculated 193(H) <100 mg/dL [facility] Comment:Desirable LDL: less than 100 mg/dLNear Optimal/Above Optimal LDL: 110- 129 mg/dLBorderline High LDL: 130-159 mg/dLHigh LDL: 160-189 mg/dLVery High LDL: greater than or equal to 190 mg/dL HDL Cholesterol 50 >40 mg/dL [facility] Comment:Desirable HDL: great er than 40 mg/dL Note: This HDL assay may give artificially low results in patients with liver disease. Blood Venous blood specimen / Unknown 09/02/2024 8:20 AM EDT 09/02/2024 11:09 AM EDT Kay Tamayo MD LAB BLOOD ORDERABLES Final Res ult [facility] [address] [place] [address] [phone] * BI Mammogram Screening Tomosynthesis Bilateral (12/15/2023 9:00 AM EST) Anatomical Region Laterality Modality Breast Bilateral Mammography 12/15/2023 9:00 AM EST Narrative 12/29/2023 8:12 AM EST ? [facility] ? [address] ?[place] [address] ? Mammography Report ? Signed ? Patient: Bae Rony,Yuko ?MR#: [id number] ?? [id number] ? : 1965 ?Acct:[id number] ? Age/Sex: 58 / F ?ADM Date: 12/15/23 ? Loc: HO.MAMMO ? Attending Dr: Yuko Garcia MD ? Ordering Physician: Yuko Miranda MD ?Results: ?? 1Negative ? Date of Service: 12/15/23 ?Follow Up: 1 Year From Orig ?? inal Mammogram ? Procedure(s): MM tomosynthesis screening BI ?? Accession Number(s): [id number] ? cc: Yuko Miranda MD ? EXAMINATION: [...] Emma Freire MD in OV> ? 12/29/23 0808 ? DD/ 0900 ? TD/TT: ? Manager Decision Support: ? Procedure Note Donmeliter, Image - 12/29/2023 [facility] [address] [place] [address] Mammography Report Signed Patient: Yuko LyonMR#: [id number] : 1965Acct:[id number] Age/Sex: 58 / FADM Date: 12/15/23 Loc: HO.MAMMO Attending Dr: Yuko Garcia MD Ordering Physician: Yuko Miranda MDResults: 1Negative Date of Service: 12/15/23Follow Up: 1 Year From Orig inal Mammogram Procedure(s): MM tomosynthesis screening BI Accession Number(s): [id number] cc: Yuko Miranda MD EXAMINATION: MM SCREENING [...] Freire MD in OV> 12/29/23 0808 DD/ 09 TD/TT: Manager Decision Support: us Yuko Garcia MD IMG BI PROCEDURES Saturnino kelly Result - Final * THINPREP TIS PAP (03/15/2021 1:47 PM EDT) Clinical Information: None given [facility] COMMENT SEE COMMENT [facility] ON [...] has been evaluated with computer assisted technology. [facility] Mud Grinder : SEE COMMENT [facility] Comment: BLC,CT(ASCP) CT screening location: [address] ??[id number] Interpretation/R esult: Negative for intraepithelial lesion or malignancy. [facility] LMP: NONE GIVEN [facility] Prev. BX: NONE GIVEN [facility] Prev. PAP: NONE GIVEN [facility] ON [facility] SOURCE: None given [facility] Statement Of Adequacy: SEE COMMENT [facility] Comment: Satisfactory for evaluation. Endocervical/transformation zone component present. Age and/or menstrual status not provided 03/15/2021 1:47 PM EDT Kay Tamayo MD LAB PATHOLOGY ORDERABLES Final Result Performing Organization Address [facility] de Phone Number [facility] [address] * HPV mRNA E6/E7 REFLEX TO HPV 16, 18/45 (03/15/2021 1:47 PM EDT) HPV nRNA E6/E7 Not Detected Not Detected [facility] Comment: Methodology: Clinical Operations Consultant-Mediated Amplification This assay detects E6/E7 viral messenger RNA (mRNA) from 14 high-risk HPV types (16,18,31,33,35,39,45,51,52,56,58,59,66,68). ? The analytical performance characteristics of this assay have been determined by [employer]. The modifications have not been cleared or approved by the FDA. This assay has been validated pursuant to the CLIA regulations and is used for clinical purposes. ?? For additional information, please refer to http://education.GameFly/faq/ZTL239z9 (This link if provided for information/ educational purposes only.) 03/15/2021 1:47 PM EDT Kay Tamayo MD LAB CYTOLOGY ORDERABLES Final Result Performing Organization Address [facility] de Phone Number [facility] [address] * Hm Colonoscopy (05/29/2016) Historical Provider HEALTH MAINTENANCE Final Result from Last 3 Months or Most Recently Relevant to Health Maintenance [place] [address] [place] [address] - [facility] 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
--- OUTSIDE RECORDS SUMMARY | 2025-01-05 11:25 | XMS_ITS | Encounter Summary ---
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 Pt finds it hard to stand and walk. Back pain is located in lower back. Pt has tried ice /heat and is taking ibuprofen 800 mg which does help some. Pt reports pain radiates to left leg. Pt is advised to come to [facility] to be seen by provider and [...] become worse * Telephone Encounter - Steve Cortze - 05/07/2023 9:26 AM EDT Symptom: Back Pain - Not From Injury Outcome: Talk to a nurse or provider within 15 minutes Reason: Can't walk (unless normally can't walk) The caller accepted this outcome Please contact at [phone] Prydeinig documented in this encounter Plan of Treatment Upcoming Encounters Date Type Department Care Team (Late st Contact Info) Description 02/22/2025 4:00 PM EDT Office Visit [facility] [address] [place] [address] Kay Tamayo MD [address] [place] [phone] documented as of this encounter Visit Diagnoses Not on filedocumented in this encounter Care Teams Medical Records Director Relationship Specialty Start Date End Date Kay Tamayo MD [address] [place] [address] [phone] PCP - General Family Medicine 11/01/20 documented as of this encounter
--- OUTSIDE RECORDS SUMMARY | 2025-01-05 11:25 | XMS_ITS | Encounter Summary ---
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; White without pressure of peripheral retina of both eyes; Choroidal nevus, right eye; Choroidal nevus, left eye; Astigmatism of both eyes with presbyopia Social History Tobacco Use Types Packs/Day Years [...] Description 02/22/2025 4:00 PM EDT Office Visit [facility] [address] [place] [phone] Kay Tamayo MD [address] [place] [address] Pending Results Name Type Priority Associated Diagnoses Date /Time OCT, Retina - OU - Both Eyes Ophthalmology Routine Familial drusen of both eyes 12/26/2024 11:55 AM EST documented as of this encounter Visit Diagnoses Diagnosis Familial drusen of both eyes- Primary History of long-term treatment with high-risk medication Encounter for long-term (current) use of other medications White without pressure of peripheral retina of both eyes Other retinal disorders Choroidal nevus, right eye Benign neoplasm of choroid Choroidal nevus, left eye Benign neoplasm of choroid Astigmatism of both eyes with presbyopia documented in this encounter Additional Health Concerns Assessment Noted Time PHQ-9 Depression Total Score: 11 023 2:43 PM EDT documented as of this encounter Care Teams Director Operations Relationship Specialty Start Date End Date Kay Tamayo MD [address] [place] [address] PCP - General Family Medicine 11/01/20 documented as of this encounter
== END 2025-01-05 10:43 | disposition home or self-care (01) ==
LOC: HO.MAMMO 10:42
PROVIDERS: PCP Internal Medicine; Visit Provider Internal Medicine
DX: Z12.31 Encounter for screening mammogram for malignant neoplasm of breast (principal)
CPT/HCPCS: 77063; 77067

== ENCOUNTER → 2025-01-05 10:45 | Outpatient (BNV) | payer OTHER, SELFPAY | PROVIDERS: PCP Internal Medicine; Visit Provider Internal Medicine | DX: Z12.31 Encounter for screening mammogram for malignant neoplasm of breast (principal) | CPT/HCPCS: 77063; 77067 ==

== ENCOUNTER → 2025-01-21 18:33 | Outpatient (BNV) | payer OTHER, SELFPAY | PROVIDERS: PCP Internal Medicine; Visit Provider Radiology Diagnostic Radiology | DX: M51.16 Intervertebral disc disorders with radiculopathy, lumbar region (principal) | CPT/HCPCS: 72148 ==

== ENCOUNTER 2025-01-21 18:54 | Outpatient (REF) | payer OTHER, SELFPAY ==
--- NOTE | ~2025-01-21 | MR_ITS ---
EXAMINATION: MR LUMBAR SPINE WITHOUT CONTRAST CLINICAL INFORMATION: Possible impingement at L5-S1 seen on x-rays. Left leg weakness, numbness and pain. COMPARISON: Lumbar spine 06/03/2023 TECHNIQUE: MRI of the lumbar spine was obtained using routine sequences without contrast. FINDINGS: There is maintained lumbar lordosis. The vertebral heights, alignment and disc heights are maintained. There is minimal disc desiccation changes. The L1-2 and L2-3 disc levels are unremarkable. At L3-4 disc level there is a left lateral and posterior lateral disc herniation mildly narrowing the left neural foramina and mildly compressing the left exiting L3 nerve root in the extraforaminal segment. At L4-5 disc level there is a broad-based disc herniation/osteophyte complex, bilateral mild facet joint and ligament flavum hypertrophy resulting in mild concentric canal narrowing. There is bilateral mild neural foraminal narrowing. At L5-S1 disc level there is no significant disc bulge, herniation or spinal canal stenosis. The neural foramina are widely patent. There are endplate Modic type II changes L4-5 disc level. Rest the bone marrow signal is normal. Conus medullaris terminates at L1 vertebra and appears normal in morphology.. 2 left renal lesions one of which appears simple cyst measuring 1.9 cm. Rest the paravertebral soft tissues are normal. MR/MR lumbar spine wo con IMPRESSION: Left lateral and posterior lateral disc herniation compressing the left L3 nerve root at the L3-4 disc level. Broad-based disc herniation at L4-5 disc level with mild concentric canal stenosis. Electronically signed by: Cristofer Napier MD 01/23/2025 07:21 AM [facility]
--- OUTSIDE RECORDS SUMMARY | 2025-01-21 18:57 | XMS_ITS | Clinical Summary ---
Author Organization [employer] Address [address] [place] [address] 7 [place] [address] Care Team Providers Care Help Desk Rep Name Role Phone Kay Tamayo MD Primary Care Provider [phone] Allergies Active Allergy Reactions Criticality Noted Date [...] Encounters Date Type Department Care Team Description 01/05/2025 Orders Only [facility] [address] [place] [address] Yuko Miranda MD 01/04/2025 9:00 AM EST Office Visit [facility] [address] [place] [address] Susana Fink Dental calculus (Primary Dx); Gingival bleeding; Acute gingival inflammation; Periodontal disease; Tipped teeth; Rotated tooth; Dental caries 12/30/2024 11:00 AM EST Telemedicine [address] [address] Kay Tamayo MD Primary insomnia (Primary Dx); Mood disorder (CMS/HCC); Dietary counseling; Exercise counseling; Class 1 obesity with serious comorbidity and body mass index (BMI) of 32.0 to 32.9 in adult, unspecified obesity type; Essential hypertension; Right hip pain; Abnormal x-ray of spine 12/26/2024 10:00 AM EST Office Visit [facility] [address] [place] [address] Darryn, Alina, OD Nevus of choroid, unspecified laterality (Primary Dx); Dominant drusen, bilateral; White without pressure of peripheral retina of both eyes; Early cataracts, bilateral; Presbyopia 12/26/2024 Travel 12/22/2024 Orders Only GENERIC EXTERNAL DATA DEPARTMENT Provider, Generic External Data 12/19/2024 Patient Outreach [address] [address] Kay Tamayo MD Care Coordination (W outreach for SDOH food needs-referral completed /) 12/19/2024 Patient Outreach [address] [address] Kay Tamayo MD Pre-visit Planning (SDOH screening positive and tobacco screening negative) 12/16/2024 Orders Only GENERIC EXTERNAL DATA DEPARTMENT Provider, Generic External Data 11/18/[address] [address] Kay Tamayo MD No Show 11/09/2024 Patient Outreach [address] [place] [address] Kay Tamayo MD Pre-visit Planning (SDKS screening completed on 04/12/2024) 10/31/2024 Telephone [facility] [place] [address] Marcie Roman, RN Results 10/30/2024 Orders Only [facility] [place] [address] Kay Tamayo MD Microscopic hematuria (Primary Dx) [...] Description 02/22/2025 4:00 PM EDT Office Visit [facility] [address] [place] [address] Kay Tamayo MD [address] [place] [address] Health Maintenance Due Date Last Done Comments [...] 2024 , 09/19/2020, 09/30/2019, Additional history exists Dental Oral Exam 07/05/2025 01/04/2025, , 11/25/2019, Additional history exists Dental Prophylaxis 07/05/2025 01/04/2025, 0 08/22/2021, 11/25/2019, Additional history exists Diabetes: Hemoglobin A1C 09/02/2025 024, 01/21/2023, 07/23/2022, Additional history exists SDOH Screening 12/19/2025 12/19/2024 Depression Screening 12/30/2025 12/30/2024, 12/30/19 25 Mammogram 01/05/2026 01/05/2025, 11/24, 12/09/2022, Additional history exists Tobacco Screening 01/16/2026 01/16/2025 Cervical Cancer Screening 03/15/2026 HPV/Cotest 03/15/2026 03/15/2021 [...] Procedure Name Priority Date/Time Associated Diagnosis Comments BI MAMMOGRAM SCREENING TOMOSYNTHESIS BILATERAL Routine 01/05/2025 11:00 AM EST PERIODIC ORAL EVALUATION - ESTABLISHED PATIENT Routine [...] 29 EXTRACTION Routine 01/04/2025 12:00 AM EST OCT, RETINA - OU - BOTH EYES Routine 12/26/2024 10:00 AM EST Dominant drusen, bilateral URINALYSIS, COMPLETE Routine 12/22/2024 10:50 AM EST CULTURE, URINE, ROUTINE Routine 12/22/2024 12:00 AM EST LUPUS ANTICOAGULANT EVALUATION WITH REFLEX Routine 12/16/2024 11:02 AM EST DNA (DS) ANTIBODY Routine 12/16/2024 11: 02 AM EST SM AND SM/SHOPPING CENTRE MANAGER ANTIBODIES Routine 12/16/2024 11:02 AM EST SJOGREN'S [...] Routine 09/02/2024 8:20 AM EDT Essential hypertension BITEWINGS - 4 RADIOGRAPHIC IMAGES Routine 08/22/2021 12:00 AM EDT HPV MRNA E6/E7 REFLEX TO HPV 16, 18/45 Routine 03/15/2021 1:47 PM EDT THINPREP IMAGING SYSTEM PAP Routine 03/15/2021 1:47 PM EDT HM COLONOSCOPY Routine 05/29/2016 from Last 3 Months or Most Recently Relevant to Health Maintenance Results * BI Mammogram Screening Tomosynthesis Bilateral (01/05/2025 11:00 AM EST) Anatomical Region Laterality Modality Breast Bilateral Mammography 01/05/2025 11:0 0 AM EST Narrative 01/13/2025 5:06 PM EST ? [facility] ? [address] ?[place] [address] ? Mammography Report ? Signed ? Patient: Bae Rony,Yuko ?MR#: [id number] ?? [id number] ? : 1965 ?Acct:[id number] ? Age/Sex: 59 / F ?ADM Date: //25 ? Loc: HO.MAMMO ? Attending Dr: Yuko Garcia MD ? Ordering Physician: Yuko Miranda MD ?Results: ?? 1Negative ? Date of Service: 01/05/ ?Follow Up: 1 Year From Orig ?? inal Mammogram ? Procedure(s): MM tomosynthesis screening BI ?? Accession Number(s): [id number] ? cc: Yuko Miranda MD ? EXAMINATION: ?? MM SCREENING DIGITAL BREAST TOMOSYNTHESIS, BILATERAL ? CLINICAL INFORMATION: ? Screening. Asymptomatic. ? COMPARISON: ?? Mammography: Comparison is made with available priors ? TECHNIQUE: ?? Digital breast mammography with tomosynthesis is performed in both the ?? craniocaudal and mediolateral oblique views along with computer-aided ?? detection (CAD). ? FINDINGS: ?? The breasts are heterogeneously [...] due date for their next mammogram. ? Electronically signed by: ??Jordana Wadsworth DO ??01/13/2025 05:03 PM EST ? Dictated By: ?Jordana Wadsworth DO ? Signed By: ?<Electronically signed by Jordana Wadsworth, DO in OV> ? 01/13/25 1703 ? DD/ 1100 ? TD/TT: 01/05/25 1124 ? 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 Procedure Note Concepción, Image - 01/13/2025 [facility] [address] [place], [place] [address] Mammography Report Signed Patient: Catalino UribeYuko#: [id number] : 1965Acct:[id number] Age/Sex: 59 / FADM Date: 01/05/25 Loc: HO.MAMMO Attending Dr: Yuko Garcia MD Ordering Physician: Yuko Miranda MDResults: 1Negative Date of Service: 01/05/25Follow Up: 1 Year From Orig ina Mammogram Procedure(s): MM tomosynthesis screening BI Accession Number(s): [id number] cc: Yuko Miranda MD EXAMINATION: MM SCREENING DIGITAL BREAST TOMOSYNTHESIS, BILATERAL CLINICAL INFORMATION: Screening. Asymptomatic. COMPARISON: Mammography: Comparison is made with available priors TECHNIQUE: Digital breast mammography with tomosynthesis is performed in both the craniocaudal and mediolateral oblique views along with computer-aided detection (CAD). FINDINGS: The breasts are heterogeneously dense, which [...] target due date for their next mammogram. Electronically signed by: Jordana Wadsworth DO 01/13/2025 05:03 PM EST Dictated By: Jordana Wadsworth DO Signed By: <Electronically signed by Jordana Wadsworth DO in OV> 01/13/25 1703 DD/ 1100 TD/TT: 01/05/25 1124 [employer] Farmworker: us Yuko Garcia MD IMG BI PROCEDURES Fin al Result * OCT, Retina - OU - Both Eyes (12/26/2024 10:00 AM EST) Narrative Alina Cates, OD - 01/16/2025 10:13 AM EST OCT [facility] INTERPRETATION Optical Coherence Tomography Interpretation Report Measurements: OD ??OS Macula Thickness ??246 microns ??241 microns Test findings: OD: Normal foveal contour, no cystoid macular edema (CME), scattered perimacular drusen, no subretinal fluid (SRF) OS: Normal foveal contour, no cystoid macular edema (CME), scattered perimacular drusen, no subretinal fluid (SRF) Impression and Plan: Stable. Monitor in 1 year. Alina Cates OD OPHTH TOMOGRAPHY Edited * Urinalysis Complete (12/22/2024 10:50 AM EST) Only the most recent of2 resultswithin the time period is included. Color Urine Yellow [facility] Appearance Urine Cloudy [facility] PH 6.5 5.0 - 9.0 [facility] Glucose Urine UA Negative Negative mg/dL [facility] Urine Blood Negative Negative [facility] Specific [place] - Urine 1.025 1.005 - 1.025 [facility] Urine Protein Negative Neg-Trace mg/dL [facility] Urine Ketones Negative Negative mg/dL [facility] Nitrite Urine Negative Negative [facility] Leukocyte Esterase Urine Negative Negative [facility] RBC Urine 0-2 0 - 2 /HPF [facility] Urine WBC 0-5 0 - 5 /HPF [facility] Urine Squamous Epithelial Cell 3-5 0 - 2 /HPF [facility] TRANSITIONAL (EPITHELIAL) CELLS (#/HPF) IN URINE Present [facility] Urine Bacteria 1+ None Seen [facility] Hyaline Casts, Urine 0-2 0 - 2 /LPF [facility] 12/22/2024 10:5 0 AM EST 12/22/2024 12:00 PM EST us Generic External Data Provider LAB URINE ORDERAB LES Final Result [facility] [address] [place] [phone] * Culture, Urine, Routine (12/22/2024 12:00 AM EST) Urine Urine specimen obtained by clean catch procedure / Unknown 12/22/2024 12/22/2024 Comment:UACC Narrative [facility] - 12/23/2024 9:12 AM EST Urine Culture Report Result Urine Culture 10,000 to 50,000 cfu/ml Urine Culture Mixed bacterial desiree characteristic of Urine Culture urogenital contamination. Specimen Source: Urine clean catch us Generic External Data Provider LAB MICROBIOLOGY - GENERAL ORDERABLES Final Result Performing Organization Address [facility]/ZIP Co de Phone Number [facility] [address] [place] [phone] * DNA (ds) Antibody, Crithidia IFA with Reflex to Titer (12/16/2024 11:02 AM EST) DNA AB(DS) Crithidia, IFA Negative Negative [facility] Comment:THIS TEST WAS PERFOR MED AT:[employer] [place] [address]HDRPMOLMAGAN KOTHARI MD,PHD DNA AB (DS) CRITHIDIA, ADDITIONAL TESTING TNP [facility] DNA (DS) Antibody Crithidia [facility] 12/16/2024 11:0 2 AM EST 12/16/2024 11:02 AM EST us Generic External Data Provider LAB BLOOD ORDERAB LES Final Result Performing Organization Address [facility] Co de Phone Number [facility] [address] [place] [phone] * Sm and Sm/SHOPPING CENTRE MANAGER Antibodies (12/16/2024 11:02 AM EST) SM Antibody <1.0 NEG <1.0 NEG AI [facility] SM/SHOPPING CENTRE MANAGER Antibody <1.0 NEG <1.0 NEG [facility] Comment:THIS TEST WAS PERFOR MED AT:[employer] [address] [phone] HAZEL MD 12/16/2024 11:0 2 AM EST 12/16/2024 11:02 AM EST us Generic External Data Provider LAB BLOOD ORDERAB LES Final Result Performing Organization Address [facility] Co de Phone Number [facility] [address] [place] [phone] * Sjogren's Antibodies (SS-A,SS-B) (12/16/2024 11:02 AM EST) Sjogren's Antibody (SS-A) <1.0 NEG <1.0 NEG [facility] Sjogren's Antibody (SS-B) <1.0 NEG <1.0 NEG [facility] Comment:THIS TEST WAS PERFOR MED AT:[employer] [place] [phone] HAZEL MD 12/16/2024 11:0 2 AM EST 12/16/2024 11:02 AM EST Generic External Data Provider LAB BLOOD ORDERAB LES Final Result Performing Organization Address [facility] Co de Phone Number [facility] [address] [place] [phone] * (ABNORMAL) CBC auto differential (12/16/2024 11:02 AM EST) White Blood Count 6.3 4.8 - 10.8 X10*3/uL [facility] Red Blood Count 4.54 4.20 - 5.50 X10*6/uL [facility] Hemoglobin 12.1 12.0 - 16.0 g/dl [facility] Hematocrit 37.3 37.0 - 47.0 % [facility] Mean Corpuscular Volume 82.2 80.0 - 98.0 fL [facility] Mean Corpuscular Hemoglobin 26.7(L) 27.0 - 33.0 pg [facility] Mean Corpuscular HGB Conc 32.4 31.0 - 35.0 g/dl [facility] Red Cell Distribution Width 13.3 11.0 - 16.0 % [facility] Platelet Count 252 160 - 400 X10*3/uL [facility] Mean Platelet Volume 11.4 9.4 - 12.3 fL [facility] Neutrophils Percent Auto 63.0 45 - 73 % [facility] Imm Gran Pct Auto 0.3 0.0 - 0.4 % [facility] Lymphocytes Percent Auto 25.0 20 - 40 % [facility] Monocytes Percent Auto 9.5 2 - 11 % [facility] Eosinophils Percent Auto 1.9 0 - 4 % [facility] Basophils Percent Auto 0.3 0 - 2 % [facility] NRBC Pct Auto 0.0 0.0 - 0.2 /100WBC [facility] Neutrophils Absolute Auto 4.0 2.0 - 8.3 x10*3/uL [facility] Imm Gran Abs Auto 0.02 0.00 - 0.03 X10*3/uL [facility] Lymphocytes Absolute Auto 1.6 1.2 - 4.9 X10*3/uL [facility] Monocytes Absolute Auto 0.6 0.1 - 1.2 X10*3/uL [facility] Eosinophils Absolute Auto 0.1 0.0 - 0.4 X10*3/uL [facility] Basophils Absolute Auto 0.0 0.0 - 0.2 X10*3/uL [facility] NRBC Abs Auto 0.000 0.0 - 0.012 X10*3/uL [facility] 12/16/2024 11:0 2 AM EST 12/16/2024 11:02 AM EST us Generic External Data Provider LAB BLOOD ORDERAB LES Final Result [facility] [address] [place] [phone] * DNA (ds) Antibody (12/16/2024 11:02 AM EST) Anti DNA DS Antibody 1 IU/mL [facility] Comment:IU/mL Interpretation < or = 4 Negative 5-9 Indeterminate > or = 10 PositiveTHIS TEST WAS PERFORMED AT:[employer] [address] [phone] HAZEL MD 12/16/2024 11:0 2 AM EST 12/16/2024 11:02 AM EST Generic External Data Provider LAB BLOOD ORDERAB LES Final Result Performing Organization Address [facility] de Phone Number [facility] [address] [place] [phone] * Lupus Anticoagulant Evaluation with Reflex (12/16/2024 11:02 AM EST) Lupus Interpretation see note [facility] Comment:A Lupus Anticoagulan t is not detected.Reference Range: Not DetectedFor additional information, please refer tohttp://education.[employer]/faq/ZNO82d6(This link is being provided for informational/educational purposes only.)This interpretation is based on the following testresults. PTT (LAC) Screen 32 <=40 sec [facility] DRVVT Screen 31 <=45 sec [facility] Comment:THIS TEST WAS PERFOR MED AT:[employer] [place] [address]SVSWLEOMAGAN KOTHARI MD,PHD dRVVT Confirmation [facility] dRVVT 1:1 Mix [facility] DRVVT 1:1 Mix Interpretation [facility] Hexagonal Phase Neutralization TNP [facility] Thrombin Clotting Time [facility] 12/16/2024 11:0 2 AM EST 12/16/2024 11:02 AM EST us Generic External Data Provider LAB BLOOD ORDERAB LES Final Result Performing Organization Address [facility]/ZIP Co de Phone Number [facility] [address] [place] [phone] * (ABNORMAL) Sed Rate by Modified Sayergren (12/16/2024 11:02 AM EST) Erythrocyte Sedimentation Rate 27(H) 0 - 20 MM/HR [facility] Comment:Patients with polycy themia and many hemoglobin abnormalitiesmay have depressed sed rates whereas patients with anemiamay have elevated sed rates. 12/16/2024 11:0 2 AM EST 12/16/2024 11:02 AM EST Generic External Data Provider LAB BLOOD ORDERAB LES Final Result Performing Organization Address [facility]/ZIP Co de Phone Number [facility] [address] [place] [phone] * Complement Component C3c (12/16/2024 11:02 AM EST) Complement C3 162 83 - 193 mg/dL [facility] Comment:THIS TEST WAS PERFOR MED AT:[employer] [place] [phone] HAZEL MD 12/16/2024 11:0 2 AM EST 12/16/2024 11:02 AM EST Generic External Data Provider LAB BLOOD ORDERAB LES Final Result Performing Organization Address City/[facility] Co de Phone Number [facility] [address] [place] [phone] * Complement Component C4c (12/16/2024 11:02 AM EST) Complement C4 37 15 - 57 mg/dL [facility] Comment:THIS TEST WAS PERFOR MED AT:[employer] [place] [phone] HAZEL MD 12/16/2024 11:0 2 AM EST 12/16/2024 11:02 AM EST us Generic External Data Provider LAB BLOOD ORDERAB LES Final Result Performing Organization Address City/[facility]/ZIP Co de Phone Number [facility] [address] [place] [phone] * (ABNORMAL) C-reactive Protein (12/16/2024 11:02 AM EST) Pathologist [facility] C Reactive Protein 0.72(H) < or = 0.50 mg/dL [facility] 12/16/2024 11:0 2 AM EST 12/16/2024 11:02 AM EST us Generic External Data Provider LAB BLOOD ORDERAB LES Final Result Performing Organization Address [facility] Co de Phone Number [facility] [address] [place] [phone] * RICCO Screen,IFA, with Reflex to Titer and Pattern (12/16/2024 11:02 AM EST) Pathologist [facility] Anti Nuclear Antibody Screen NEGATIVE NEGATIVE [facility] Comment:RICCO IFA is a first [...] clinicallysuspected inflammatory myopathies.AC-0: NegativeInternational Consensus on RICCO Patterns(https://doi.org/10.1515/caas-1862-2892)For additional information, please refer tohttp://education.[employer]/faq/CZG249(This link is being provided for informational/educational purposes only.)THIS TEST WAS PERFORMED AT:[employer] [place] [phone] HAZEL MD RICCO Titer TNP [facility] RICCO Pattern [facility] RICCO TITER 2 (REF LAB) [facility] RICCO Pattern 2 [facility] RICCO TITER 3 TNP [facility] RICCO PATTERN 3 [facility] 12/16/2024 11:0 2 AM EST 12/16/2024 11:02 AM EST us Generic External Data Provider LAB BLOOD ORDERAB LES Final Result [facility] [address] [place] [phone] * Comprehensive Metabolic Panel (12/16/2024 11:02 AM EST) Sodium 141 135 - 145 mmol/L [facility] Potassium 4.0 3.3 - 5.1 mmol/L [facility] Chloride 108 96 - 108 mmol/L [facility] Carbon Dioxide 24 22 - 29 mmol/L [facility] Anion Gap 13 12 - 20 [facility] Urea Nitrogen (BUN) 11 9 - 16 mg/dL [facility] Creatinine, Serum 0.59 0.5 - 1.4 mg/dL [facility] Estimated Glomerular Filt Rate >60 [facility] Comment:Chronic Kidney Disea se: Estimated GFR < 60 mL/min/1.14j0Soyzlj Kidney Disease: Estimated GFR < 15 mL/min/1.73m2 Glucose 89 60 - 115 mg/dL [facility] Calcium 9.8 8.4 - 10.2 mg/dL [facility] Bilirubin, Total 0.7 0.0 - 1.0 mg/dL [facility] Aspartate Amino Transferase 19 5 - 31 U/L [facility] Alanine Aminotransferase 19 0 - 31 U/L [facility] Total Protein 7.7 6.5 - 8.0 g/dL [facility] Albumin Level 3.9 3.5 - 5.0 g/dL [facility] Alkaline Phosphatase 63 39 - 117 U/L [facility] 12/16/2024 11:0 2 AM EST 12/16/2024 11:02 AM EST us Generic External Data Provider LAB BLOOD ORDERAB LES Final Result Performing Organization Address [facility] Co de Phone Number [facility] [address] [place] [phone] * Protein Creatinine Ratio, Urine (12/16/2024 10:55 AM EST) Creatinine, Urine 195.42 mg/dL [facility] Protein, Total, Random Urine 11 <12 mg/dL [facility] Protein/Creati nine Ratio, Ur 0.06 <0.2 [facility] Comment:The spot urine prote in:creatinine ratio may increase to 0.3during normal . 12/16/2024 10:5 5 AM EST 12/16/2024 12:16 PM EST us Generic External Data Provider LAB URINE ORDERAB LES Final Result Performing Organization Address [facility] Co de Phone Number [facility] [address] [place] [phone] * Hepatitis C Antibody with Reflex to HCV, RNA, Quantitative, Real-Time PCR (09/02/2024 8:20 AM EDT) Hepatitis C Antibody Nonreactive Nonreactive [facility] Comment:Antibodies to HCV no t detected; does not exclude early acuteHCV infection. Blood Venous blood specimen / Unknown 09/02/2024 8:20 AM EDT 09/02/2024 11:09 AM EDT us Kay Tamayo MD LAB BLOOD ORDERABLES Final Res ult Performing Organization Address [facility] Co de Phone Number [facility] [address] [place] [phone] * HIV-1/2 Antigen and Antibodies, Fourth Generation, with Reflexes (09/02/2024 8:20 AM EDT) HIV AB/AG Nonreactive Nonreactive [facility] Comment:HIV-1 p24 Ag and/or HIV-1/HIV-2 Ab not detected.A test result that is nonreactive does not exclude thepossibility of exposure to or infection with HIV-1 and/orHIV-2. Nonreactive results in this assay for individualswith prior exposure to HIV-1 and/or HIV-2 may be due toantigen and antibody levels that are below the limit ofdetection of this assay.The [employer] HIV Ag/Ab Combo assay result andsupplemental assay results should be interpreted inconjunction with the patient's clinical presentation,history and other laboratory results. If the results areinconsistent with clinical evidence, additional testing issuggested to confirm the result. Blood Venous blood specimen / Unknown 09/02/2024 8:20 AM EDT 09/02/2024 11:09 AM EDT Kay Tamayo MD LAB BLOOD ORDERABLES Final Res ult [facility] [address] [place] [phone] * Hemoglobin A1c (09/02/2024 8:20 AM EDT) Hemoglobin A1c 6.0 <6.0 % [facility] Comment:Hemoglobin A1C Refer ence Range Adults: 4.8 - 6.0 % Non diabetic: < 6.0 % Goal: < 7.0 %Additional Action Suggested: > 8.0 %Note: Hemoglobin A1c results are invalid for patients with abnormal amounts of HbF. Blood transfusions may impact the HbA1c concentration in the patient sample. Estimated Average Glucose 126 mg/dL [facility] Comment:eAG = Estimated ave rage glucose which is %A1C expressed asaverage glucose, using the formula of the W0H-UlqivzgGzsogki Glucose study (ADAG), Diabetes Care, Vol.31,#8,Jun. 2007 Blood Venous blood specimen / Unknown 09/02/2024 8:20 AM EDT 09/02/2024 11:09 AM EDT Kay Tamayo MD LAB BLOOD ORDERABLES Final Res ult Performing Organization Address [facility]/ZIP Co de Phone Number [facility] [address] [place] [phone] * (ABNORMAL) Lipid Panel, Standard (09/02/2024 8:20 AM EDT) Triglycerides 99 <150 mg/dL [facility] Comment:Desirable Triglyceri de: less than 150 mg/dLBorderline High Triglyceride 150-199 mg/dLHigh Triglyceride: 200-499 mg/dLVery High Triglyceride: greater than or equal to 5OO mg/dL Cholesterol 262(H) <200 mg/dL [facility] Comment:Desirable Cholestero l: less than 200 mg/dLBorderline High Cholesterol: 200-239 mg/dLHigh Cholesterol: greater than 239 mg/dL LDL Cholesterol Calculated 193(H) <100 mg/dL [facility] Comment:Desirable LDL: less than 100 mg/dLNear Optimal/Above Optimal LDL: 110- 129 mg/dLBorderline High LDL: 130-159 mg/dLHigh LDL: 160-189 mg/dLVery High LDL: greater than or equal to 190 mg/dL HDL Cholesterol 50 >40 mg/dL [facility] Comment:Desirable HDL: great er than 40 mg/dL Note: This HDL assay may give artificially low results in patients with liver disease. Blood Venous blood specimen / Unknown 09/02/2024 8:20 AM EDT 09/02/2024 11:09 AM EDT Kay Tamayo MD LAB BLOOD ORDERABLES Final Res ult Performing Organization Address [facility]/ZIP Co de Phone Number [facility] [address] [place] [address] [phone] * THINPREP TIS PAP (03/15/2021 1:47 PM [...] has been evaluated with computer assisted technology. [employer] [facility] Silica Filter Operator : SEE COMMENT [facility] Comment: BLC,CT(ASCP) CT screening location: [address] ??[phone] Interpretation/R esult: Negative for intraepithelial lesion or malignancy. [facility] LMP: NONE GIVEN [facility] Prev. BX: NONE GIVEN [facility] Prev. PAP: NONE GIVEN [facility] SOURCE: None given [facility] Statement Of Adequacy: SEE COMMENT [facility] Comment: Satisfactory for evaluation. Endocervical/transformation zone component present. Age and/or menstrual status not provided 03/15/2021 1:47 PM EDT Kay Tamayo MD LAB PATHOLOGY ORDERABLES Final Result [facility] [address] * HPV mRNA E6/E7 REFLEX TO HPV 16, 18/45 (03/15/2021 1:47 PM EDT) HPV nRNA E6/E7 Not Detected Not Detected [facility] Comment: Methodology: Delivery Table Feeder-Mediated Amplification This assay detects E6/E7 viral messenger RNA (mRNA) from 14 high-risk HPV types (16,18,31,33,35,39,45,51,52,56,58,59,66,68). ? The analytical performance characteristics of this assay have been determined by [employer]. The modifications have not been cleared or approved by the FDA. This assay has been validated pursuant to the CLIA regulations and is used for clinical purposes. ?? For additional information, please refer to http://education.[employer]/faq/LHG927b6 (This link if provided for information/ educational purposes only.) 03/15/2021 1:47 PM EDT us Kay Tamayo MD LAB CYTOLOGY ORDERABLES Final Result [facility] [address] [place] [phone], * Hm Colonoscopy (05/29/2016) us Historical Provider HEALTH MAINTENANCE Final Result from Last 3 Months or Most Recently Relevant to Health Maintenance Insurance [facility] - [facility] Care Teams Help Desk Rep Relationship Specialty Start Date End Date Kay Tamayo MD [address] [place] [address] [phone] PCP - General Family Medicine 11/01/20
--- OUTSIDE RECORDS SUMMARY | 2025-01-21 18:57 | XMS_ITS | Encounter Summary ---
Author Organization [employer] Address [address] [facility] 7t [place] [address] Care Team Providers Care Hearing Instrument Specialist Name Role Phone Kay Tamayo MD Primary Care Provider [phone] Encounter Details Date Type Department Care Team ([facility] st Contact Info) Description 01/05/2025 Orders Only [facility] [address] [place] [address] Yuko Miranda MD [address] [place] [address] Social History Tobacco Use Types Packs/Day Years [...] Description 02/22/2025 4:00 PM EDT Office Visit [facility] [address] [place] [address] Kay Tamayo MD [address] [place] [address] documented as of this encounter Procedures Procedure Name Priority Date/Time Associated Diagnosis Comments BI MAMMOGRAM SCREENING TOMOSYNTHESIS BILATERAL Routine 01/05/2025 11:00 AM EST documented in this encounter Results * BI Mammogram Screening Tomosynthesis Bilateral (01/05/2025 11:00 AM EST) Anatomical Region Laterality Modality Breast Bilateral Mammography 01/05/2025 11:0 0 AM EST Narrative 01/13/2025 5:06 PM EST ? [facility] ? [address] ?[place] [address] ? Mammography Report ? Signed ? Patient: Bae Rony,Yuko ?MR#: [id number] ?? [id number] ? : 1965 ?Acct:[id number] ? Age/Sex: 59 / F ?ADM Date: 02/13/25 ? Loc: HO.MAMMO ? Attending Dr: Yuko Garcia MD ? Ordering Physician: Yuko Miranda MD ?Results: ?? 1Negative ? Date of Service: 01/05/25 ?Follow Up: 1 Year From Orig ?? inal Mammogram ? Procedure(s): MM tomosynthesis screening BI ?? Accession Number(s): [id number] ? cc: Yuko Miranda MD ? EXAMINATION: [...] DD/ 1100 ? TD/TT: 01/05/25 1124 ? Sample Display Preparer: ? Procedure Note Donmeliter, Image - 01/13/2025 [facility] [address] [place] [address] Mammography Report Signed Patient: Yuko LyonMR#: [id number] : 1965Acct:[id number] Age/Sex: 59 / FADM Date: 01/05/25 Loc: HO.MAMMO Attending Dr: Yuko Garcia MD Ordering Physician: Yuko Miranda MDResults: 1Negative Date of Service: 01/05/25Follow Up: 1 Year From Orig inal Mammogram Procedure(s): MM tomosynthesis screening BI Accession Number(s): [id number] cc: Yuko Miranda MD EXAMINATION: MM SCREENING [...] Jordana Wadsworth DO 01/13/2025 05:03 PM EST RP Dictated By: Jordana Wadsworth DO Signed By: <Electronically signed by Jordana Wadsworth DO in OV> 01/13/25 1703 DD/ 1100 TD/TT: 01/05/25 1124 Sample Display Preparer: us Yuko Garcia MD IMG BI PROCEDURES Fin al Result documented in this encounter Visit Diagnoses Not on filedocumented in this encounter Additional Health Concerns Assessment Noted Time PHQ-9 Depression Total Score: 2 12/30/19 25 11:00 AM EST documented as of this encounter Care Teams Hearing Instrument Specialist Relationship Specialty Start Date End Date aKy Tamayo MD [address] [place] [address] PCP - General Family Medicine 11/01/20 documented as of this encounter
--- OUTSIDE RECORDS SUMMARY | 2025-01-21 18:57 | XMS_ITS | Encounter Summary ---
Author Organization [employer] Address [address] [facility] 7t [place] [address] Care Team Providers Care Pain Management Nurse Practitioner Name Role Phone Kay Tamayo MD Primary Care Provider [phone] Reason for Referral * Imaging (Routine) - Authorized Specialty Diagnoses / Procedures Referred By Contac t Referred To Contact Radiology Diagnoses Right hip pain Abnormal x-ray of spine Procedures MR Lumbar Spine w/o Contrast Kay Tamayo MD [address] [place] [phone] Phone: tel: fax: [address] Phone: tel: fax: Referral ID Status Reason Start Date Expiration Date V isits Requested Visits Authorized [id number] Authorized 01/04/2025 01/04/2026 1 1 Reason for Visit * Reason Comments Follow-up Encounter Details Date Type Department Care Team (Late st Contact Info) Description 12/30/2024 11:00 AM EST Telemedicine [facility] [address] [place] [address] [phone] Kay Tamayo MD [address] [place] [address] [phone] Primary insomnia (Primary Dx); Mood disorder (CMS/HCC); [...] 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 [facility] Taking Trazodone, Ativan, Prozac for mood and sleep symptoms prescribed by Cindy Willis HTN/pre-DM Managed by diet and weight loss Fibromyalgia/arthritis Sleeping well on [employer] Women's MVI gummies Magnesium/Vitamin C Hip and [...] Joint pain/fibromyalgia saw Rheum Sybil Tenorio at [facility] 12/2022, labs returned from [facility] negative for lupus, they recommend trying treatment [...] SM Antibody <1.0 NEG AI <1.0 NEG SM/LODGE OFFICER Antibody <1.0 NEG AI <1.0 NEG Thrombin [...] Social History Social History Narrative 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 Stress with son Review of [...] the morning., Disp: 180 tablet, Rfl: 3 American Translation: Provided by [facility] staff member ANABEL Marquez documented in [...] Description 02/22/2025 4:00 PM EDT Office Visit [facility] [address] [place] [phone] Kay Tamayo MD [address] [place] [phone] Scheduled Orders Name Type Priority Associated Diagnoses [...] documented as of this encounter Care Teams Pain Management Nurse Practitioner Relationship Specialty Start Date End Date Kay Tamayo MD [address] [place] [address] PCP - General Family Medicine 11/01/20 documented as of this encounter
--- OUTSIDE RECORDS SUMMARY | 2025-01-21 18:57 | XMS_ITS | Encounter Summary ---
Author Organization [employer] Address 75 [facility] 7 [place] [address] Care Team Providers Care Potable Water Treatment Operator Name Role Phone Kay Tamayo MD Primary Care Provider [phone] Reason for Visit * Reason Comments FMX Perio chart Routine Cleaning Dental Exam Encounter Details Date Type Department Care Team (Late st Contact Info) Description 01/04/2025 9:00 AM EST Office Visit [facility] [address] [place] [address] Susana Fink [address] [place] [address] Dental calculus (Primary Dx); Gingival bleeding; Acute [...] (FMX, Prophy, P. exam, Perio chart) Location: [facility] Tooth: Maxilla and Mandible Procedure: gross scaling, perio chart, panorex :P. Exam: Pt will like Dr. Martinez to do exam. Took Panorex due to Pt was claiming that she felt like vomitting and would not allow me to take intraoral radiographs. Verified the above with patient, real estate legal assistant, and provider. Confirmed via patient's chart, intraorally and by radiographs. Waste Water Operator: not applicable Medical Hx: Vitals: Blood pressure [...] patient including brushing technique and flossing. Recommendations: [place] two times daily, modified cruz technique, Floss daily, Electric toothbrush, Soft bristle toothbrush, [place] Tongue, Anti-sensitivity toothpaste Recall Frequency: SRP if [...] (FMX, Prophy, P. exam, Perio chart) Location: [facility] Tooth: Maxilla and Mandible Procedure: Exam, X-rays, and Prophylaxis Verified the above with patient, real estate legal assistant, and provider. Confirmed via patient's chart, intraorally and by radiographs. Waste Water Operator: not applicable Chief Complaint Patient presents with [...] Cancer Risk: Low Risk Oral Hygiene Instructions: Cleveland two times daily, modified cruz technique, Floss daily, Electric toothbrush, Soft bristle toothbrush, [place] Tongue Caries Risk Assessment: Medium- one risk factor two caries as charted Assessment/Plan AIDAN X rays Prophy Restorations Recall Patient tolerated procedure well, all questions answered and expressed understanding. Dismissed in good condition. NV: Sia N[employer]le Press Operator: Susana Fink Dentist: Axel Martinez DDS documented in this encounter Plan of Treatment Upcoming Encounters Date Type Department Care Team (Late st Contact Info) Description 02/22/2025 4:00 PM EDT Office Visit [facility] [address] [place], [place] [phone] Kay Tamayo MD [address] [place], [place] [phone] Scheduled Orders Name Type Priority Associated Diagnoses Orde r Schedule LL LL PERIODONTAL SCALING AND ROOT PLANING - 4 OR MORE TEETH PER QUADRANT Dental Routine 1 Occurrences [facility] 01/04/2025 UL UL PERIODONTAL SCALING AND ROOT PLANING - 4 OR MORE TEETH PER QUADRANT Dental Routine 1 Occurrences [facility] 01/04/2025 UR UR PERIODONTAL SCALING AND ROOT PLANING - 4 OR MORE TEETH PER QUADRANT Dental Routine 1 Occurrences [facility] 01/04/2025 LR LR PERIODONTAL SCALING AND ROOT PLANING - 4 OR MORE TEETH PER QUADRANT Dental Routine 1 Occurrences [facility] 01/04/2025 documented as of this encounter Procedures [...] documented as of this encounter Care Teams Potable Water Treatment Operator Relationship Specialty Start Date End Date Kay Tamayo MD [address] [place] [address] PCP - General Family Medicine 11/01/20 documented as of this encounter
--- OUTSIDE RECORDS SUMMARY | 2025-01-21 18:57 | XMS_ITS | Encounter Summary ---
Author Organization [employer] [facility] Address [address] [facility] 7 [place] [address] Care Team Providers Care Aircraft Air Conditioning Mechanic Name Role Phone Kay Tamayo MD Primary Care Provider [phone] Reason for Referral * Imaging (Routine) - Closed Specialty Diagnoses / Procedures Referred By Contac t Referred To Contact Radiology Diagnoses Lumbar foraminal stenosis Procedures MR Lumbar Spine w/o Contrast Kay Tamayo MD [address] [place] [address] Phone: tel: fax: [address] Phone: tel: fax: Referral ID Status Reason Start Date Expiration Date Visits Re quested Visits Authorized [id number] Closed 06/17/2023 06/16/2024 1 1 Encounter Details Date Type Department Care Team (Late st Contact Info) Description 06/17/2023 Orders Only [facility] MED[facility] [address] [place], [place] [phone] Kay Tamayo MD [address] [place], [place] [phone] Lumbar foraminal stenosis (Primary Dx) Social History [...] Description 02/22/2025 4:00 PM EDT Office Visit [facility] [address] [place] [address] Kay Tamayo MD [address] [place] [phone] Scheduled Orders Name Type Priority Associated Diagnoses Orde r Schedule MR Lumbar Spine w/o Contrast Imaging Routine Lumbar foraminal stenosis Expected: 06/17/2023, Expires: 06/17/2024 documented as of this encounter Visit Diagnoses Diagnosis Lumbar foraminal stenosis- Primary documented in this encounter Care Teams Aircraft Air Conditioning Mechanic Relationship Specialty Start Date End Date Kay Tamayo MD [address] [place] [phone] PCP - General Family Medicine 11/01/20 documented as of this encounter
--- OUTSIDE RECORDS SUMMARY | 2025-01-21 18:57 | XMS_ITS | Encounter Summary ---
Author Organization [employer] Address 75 [facility] 7t [place] [address] Care Team Providers Care Forger Helper Name Role Phone Kay Tamayo MD Primary Care Provider [phone] Encounter Details Date Type Department Care Team ([facility] st Contact Info) Description 08/05/2024 Orders Only [facility] [address] [place], [place] [phone] Kay Tamayo MD [address] [place], [place] [phone] Essential hypertension (Primary Dx); Lupus erythematosus, unspecified [...] EDT Office Visit [facility] [address] [place] [address] Kay Tamayo MD [address] [place] [address] documented as of this encounter Procedures Procedure [...] 8:20 AM EDT) HIV AB/AG Nonreactive Nonreactive [facility] Comment:HIV-1 p24 Ag and/or HIV-1/HIV-2 Ab not detected.A test result that is nonreactive does not exclude thepossibility of exposure to or infection with HIV-1 and/orHIV-2. Nonreactive results in this assay for individualswith prior exposure to HIV-1 and/or HIV-2 may be due toantigen and antibody levels that are below the limit ofdetection of this assay.The modulR HIV Ag/Ab Combo assay result andsupplemental assay results should be interpreted inconjunction with the patient's clinical presentation,history and other laboratory results. If the results areinconsistent with clinical evidence, additional testing issuggested to confirm the result. Blood Venous blood specimen / Unknown 09/02/2024 8:20 AM EDT 09/02/2024 11:09 AM EDT Kay Tamayo MD LAB BLOOD ORDERABLES Final Res ult Performing Organization Address [facility]/ZIP Co de Phone Number [facility] [address] [place] [phone] * Hepatitis C Antibody with Reflex to HCV, RNA, Quantitative, Real-Time PCR (09/02/2024 8:20 AM EDT) Hepatitis C Antibody Nonreactive Nonreactive [facility] Comment:Antibodies to HCV no t detected; does not exclude early acuteHCV infection. Blood Venous blood specimen / Unknown 09/02/2024 8:20 AM EDT 09/02/2024 11:09 AM EDT Kay Tamayo MD LAB BLOOD ORDERABLES Final Res ult Performing Organization Address [facility]/ZIP Co de Phone Number [facility] [address] [place] [phone] * Hemoglobin A1c (09/02/2024 8:20 AM EDT) Hemoglobin A1c 6.0 <6.0 % [facility] Comment:Hemoglobin A1C Refer ence Range Adults: 4.8 - 6.0 % Non diabetic: < 6.0 % Goal: < 7.0 %Additional Action Suggested: > 8.0 %Note: Hemoglobin A1c results are invalid for patients with abnormal amounts of HbF. Blood transfusions may impact the HbA1c concentration in the patient sample. Estimated Average Glucose 126 mg/dL [facility] Comment:eAG = Estimated ave rage glucose which is %A1C expressed asaverage glucose, using the formula of the T2I-DbsgjyfDgsloss Glucose study (ADAG), Diabetes Care, Vol.31,#8,Jun. 2007 Blood Venous blood specimen / Unknown 09/02/2024 8:20 AM EDT 09/02/2024 11:09 AM EDT us Kay Tamayo MD LAB BLOOD ORDERABLES Final Res ult [facility] [address] [place] [phone] [phone] * (ABNORMAL) Comprehensive Metabolic Panel (09/02/2024 8:20 AM EDT) Sodium 139 135 - 145 mmol/L [facility] Potassium 3.9 3.3 - 5.1 mmol/L [facility] Chloride 106 96 - 108 mmol/L [facility] Carbon Dioxide 28 22 - 29 mmol/L [facility] Anion Gap 9(L) 12 - 20 [facility] Urea Nitrogen (BUN) 12 9 - 16 mg/dL [facility] Creatinine, Serum 0.73 0.5 - 1.4 mg/dL [facility] Estimated Glomerular Filt Rate >60 [facility] Comment:NOTE: For -Am erican individuals, multiply the result by 1.210.Chronic Kidney Disease: Estimated GFR < 60 mL/min/1.48g7Wpcmjn Kidney Disease: Estimated GFR < 15 mL/min/1.73m2 Glucose 104 60 - 115 mg/dL [facility] Calcium 9.7 8.4 - 10.2 mg/dL [facility] Bilirubin, Total 0.8 0.0 - 1.0 mg/dL [facility] Aspartate Amino Transferase 17 5 - 31 U/L [facility] Alanine Aminotransferase 16 0 - 31 U/L [facility] Total Protein 7.3 6.5 - 8.0 g/dL [facility] Albumin Level 3.9 3.5 - 5.0 g/dL [facility] Alkaline Phosphatase 61 39 - 117 U/L [facility] Blood Venous blood specimen / Unknown 09/02/2024 8:20 AM EDT 09/02/2024 11:09 AM EDT us Kay Tamayo MD LAB BLOOD ORDERABLES Final Res ult [facility] [address] [place] [phone] * (ABNORMAL) CBC auto differential (09/02/2024 8:20 AM EDT) White Blood Count 5.4 4.8 - 10.8 X10*3/uL [facility] Red Blood Count 4.50 4.20 - 5.50 X10*6/uL [facility] Hemoglobin 12.0 12.0 - 16.0 g/dl [facility] Hematocrit 37.4 37.0 - 47.0 % [facility] Mean Corpuscular Volume 83.1 80.0 - 98.0 fL [facility] Mean Corpuscular Hemoglobin 26.7(L) 27.0 - 33.0 pg [facility] Mean Corpuscular HGB Conc 32.1 31.0 - 35.0 g/dl [facility] Red Cell Distribution Width 14.1 11.0 - 16.0 % [facility] Platelet Count 267 160 - 400 X10*3/uL [facility] Mean Platelet Volume 11.5 9.4 - 12.3 fL [facility] Neutrophils Percent Auto 58.4 45 - 73 % [facility] Imm Gran Pct Auto 0.2 0.0 - 0.4 % [facility] Lymphocytes Percent Auto 29.6 20 - 40 % [facility] Monocytes Percent Auto 9.4 2 - 11 % [facility] Eosinophils Percent Auto 2.0 0 - 4 % [facility] Basophils Percent Auto 0.4 0 - 2 % [facility] NRBC Pct Auto 0.0 0.0 - 0.2 /100WBC [facility] Neutrophils Absolute Auto 3.2 2.0 - 8.3 x10*3/uL [facility] Imm Gran Abs Auto 0.01 0.00 - 0.03 X10*3/uL [facility] Lymphocytes Absolute Auto 1.6 1.2 - 4.9 X10*3/uL [facility] Monocytes Absolute Auto 0.5 0.1 - 1.2 X10*3/uL [facility] Eosinophils Absolute Auto 0.1 0.0 - 0.4 X10*3/uL [facility] Basophils Absolute Auto 0.0 0.0 - 0.2 X10*3/uL [facility] NRBC Abs Auto 0.000 0.0 - 0.012 X10*3/uL [facility] Blood Venous blood specimen / Unknown 09/02/2024 8:20 AM EDT 09/02/2024 11:09 AM EDT us Kay Tamayo MD LAB BLOOD ORDERABLES Final Res ult [facility] [address] [place], [place] [phone] * C-reactive Protein (09/02/2024 8:20 AM EDT) C Reactive Protein 0.49 < or = 0.50 mg/dL [facility] Blood Venous blood specimen / Unknown 09/02/2024 8:20 AM EDT 09/02/2024 11:09 AM EDT us Kay Tamayo MD LAB BLOOD ORDERABLES Final Res ult [facility] [address] [place] [address] [phone] documented in this encounter Visit Diagnoses Diagnosis Essential hypertension- Primary Unspecified essential hypertension Lupus erythematosus, unspecified form Prediabetes Other abnormal glucose Screening examination for STI documented in this encounter Additional Health Concerns Assessment Noted Time PHQ-9 Depression Total Score: 11 023 2:43 PM EDT documented as of this encounter Care Teams Forger Helper Relationship Specialty Start Date End Date Kay Tamayo MD [address] [place] [phone] PCP - General Family Medicine 11/01/20 documented as of this encounter
--- OUTSIDE RECORDS SUMMARY | 2025-01-21 18:57 | XMS_ITS | Encounter Summary ---
Author Organization [employer] [facility] Address [address] [facility] [address] [place] [address] Care Team Providers Care Social Service Manager Name Role Phone Kay Tamayo MD Primary Care Provider [phone] Encounter Details Date Type Department Care Team (Latest Contact Info) Description 08/22/2021 Abstract [facility] Dental, Provider, DDS Social History [...] Description 02/22/2025 4:00 PM EDT Office Visit [facility] [address] [place] [address] Kay Tamayo MD [address] [place] [address] documented as of this encounter Visit Diagnoses Not on filedocumented in this encounter Care Teams Social Service Manager Relationship Specialty Start Date End Date Kay Tamayo MD [address] [place] [address] PCP - General Family Medicine 11/01/20 documented as of this encounter
--- OUTSIDE RECORDS SUMMARY | 2025-01-21 18:57 | XMS_ITS | Encounter Summary ---
Author Organization [employer] Address [address] [facility] 7t [place] [address] Care Team Providers Care Engineer Assistant Name Role Phone Kay Tamayo MD Primary Care Provider [phone] Encounter Details Date Type Department Care Team [...] Description 02/22/2025 4:00 PM EDT Office Visit [facility] [address] [place] [address] [phone] Kay Tamayo MD [address] [place] [phone] documented as of this encounter Visit Diagnoses Not on filedocumented in this encounter Additional Health Concerns Assessment Noted Time PHQ-9 Depression Total Score: 11 023 2:43 PM EDT documented as of this encounter Care Teams Engineer Assistant Relationship Specialty Start Date End Date Kay Tamayo MD [address] [place] [address] [phone] PCP - General Family Medicine 11/01/20 documented as of this encounter
--- OUTSIDE RECORDS SUMMARY | 2025-01-21 18:57 | XMS_ITS | Encounter Summary ---
Author Organization [employer] Address [address] [facility] [address] [place] [address] Care Team Providers Care Canvas Shop Laborer Name Role Phone Kay Tamayo MD Primary Care Provider [phone] Reason for Visit * Reason Comments Choroidal nevus Encounter Details Date Type Department Care Team ([facility] st Contact Info) Description 12/26/2024 10:00 AM EST Office Visit [facility] OPTOMETRY [address] [place] [address] Darryn, Alina, OD [address] [place] [address] Nevus of choroid, unspecified laterality (Primary Dx); Dominant drusen, bilateral; White without pressure of peripheral retina of both eyes; Early cataracts, bilateral; Presbyopia Social History Tobacco Use Types Packs/Day Years [...] as of this encounter Progress Notes * Alina Ctaes, OD - 12/26/2024 10:00 AM EST Eye Care Progress Note Patient ID: Yuko Uribe is a 59 y.o. female. Chief Complaint Choroidal nevus HPI Here for a complete eye exam to monitor a choroidal nevus in the right eye. She also has a history of Plaquenil usage that stopped in 2020. Today the patient denies any vision or ocular complaints. Her last eye exam was here on 12/18/2023. Last edited by Alina Cates, OD on 01/17/2025 1:15 PM. Current Outpatient Medications Medication Sig Dispense Refill Acetaminophen 160 MG/5ML syrup Take 10 mL (320 mg) by mouth Every 4-6 hours as needed (headache). 900 mL 11 ascorbic acid (Vitamin C) 250 MG chewable tablet Chew 1 tablet (250 mg) in the morning. 90 tablet 3 Blood Pressure Monitoring (Omron 3 Series BP Monitor) device USE TO CHECK BLOOD PRESSURE DIRECTED FLUoxetine (PROzac) 20 MG capsule Take 1 [...] by mouth at bedtime. 90 capsule 3 tiZANidine (Zanaflex) 4 MG tablet TAKE 1 TABLET BY MOUTH AT BEDTIME FOR MUSCLE SPASMS traZODone (Desyrel) 50 MG tablet TAKE 1/2 TABLET BY MOUTH AT BEDTIME NEEDED FOR SLEEP Vitamin D, Cholecalciferol, 10 MCG (400 UNIT) chewable tablet Chew 2 tablets in the morning. 180 tablet 3 No current facility-administered medications for this visit. Past Medical History: Diagnosis Date Choroidal nevus, right COVID-19 01/06/2022 Depression with anxiety Elevated cholesterol Familial drusen of both eyes Lupus History of Plaquenil. Stopped in 09/2023. Prediabetes Past Surgical History: Procedure Laterality Date GASTRIC BAND ADJUSTMENT TUBAL LIGATION Family History Problem Relation Name Age of Onset Breast cancer Mother Diabetes Father Hypertension Father Social History Socioeconomic History Marital status: Spouse name: Not on file Number of children: Not on file Years of education: Not on file Highest education level: Not on file Occupational History Not on file Tobacco Use Smoking status: Never Passive exposure: Never Smokeless tobacco: Never Vaping Use Vaping status: Never Used Substance and Sexual Activity Alcohol use: Never Drug use: Never Sexual activity: Not on file Other Topics Concern Not on file Social History Narrative 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 : No Intimate Partner Violence: Not on file Housing Stability: Low Risk (04/12/2024) Housing Stability What is your housing situation today?: I have housing Think about the place you live. Do you have problems with any of the following? : None of the above Allergies Allergen Reactions Amoxicillin Hives and Rash Clavulanic Acid Hives and Rash Other reaction(s): Hives/Skin Rash Penicillins Hives and Rash Other reaction(s): Hives/Skin Rash Metformin Dizziness ROS Negative for: Constitutional, Gastrointestinal, Neurological, Skin, Genitourinary, Musculoskeletal,HENT, Endocrine, Cardiovascular, Eyes, Respiratory, Psychiatric, Allergic/Imm, Heme/Lymph Last edited by Alexa Saeed on 12/26/2024 9:56 AM. Base Eye Exam Visual Acuity (Snellen - Linear) Right Left Dist cc 20/30-2 20/25- VA in phoropter with last Rx Tonometry ([facility] , 10:11 AM) Right Left Pressure 11 10 Pupils Pupils APD Right PERRL None Left PERRL None Visual Kumar (Counting fingers) Left Right Full Full Extraocular Movement Right Left Full Full Neuro/Psych Oriented x3: Yes Mood/Affect: Normal Dilation Both eyes: 1% Tropicamide @ 10:12 AM Slit Lamp and Fundus Exam External Exam Right Left External Normal Normal Slit Lamp Exam Right Left Lids/Lashes Normal Normal Conjunctiva/Sclera White and quiet White and quiet Cornea Clear, no whorl keratopathy Clear, no whorl keratopathy Anterior Chamber Deep and quiet Deep and quiet Iris Flat Flat Lens Trace NS Trace NS Fundus Exam Right Left Vitreous Clear Clear Disc [place] and Distinct [place] and Distinct C/D Ratio Vertical 0.25 0.20 C/D Ratio Horizontal 0.25 0.20 Macula Scattered perimacular drusen, no CME/SRF Scattered perimacular drusen, no CME/SRF Vessels Normal Normal Periphery 1/4 DD flat choroidal nevus without drusen/lipofuscin at the end of the superotemporal arcade, scattered midperipheral drusen 360, WWOP from 9:00- 11:00 in the periphery, No holes/breaks/tears 360 degrees 1/4 DD flat choroidal nevus without drusen/lipofuscin at the end of the superotemporal arcade, scattered midperipheral drusen 360, WWOP at 9:00 and 5:00 in the periphery, No holes/breaks/tears 360 degrees Refraction Wearing Rx Sphere Cylinder [place] Add Right -0.50 -1.75 080 +2.50 Left -0.25 -1.50 090 +2.50 Manifest Refraction Sphere Cylinder [place] Dist VA Add Right -0.75 -1.50 105 20/20-2 +2.50 Left -0.50 -1.25 080 20/25- +2.50 Final Rx Sphere Cylinder [place] Dist VA Add Right -0.75 -1.50 105 20/20-2 +2.50 Left -0.50 -1.25 080 20/25- +2.50 Expiration Date: 12/26/2026 Assessment/plan: Diagnoses and all orders for this visit: Nevus of choroid, unspecified laterality The patient has a small nevus in each eye. She was educated that the lesions appear benign and small at this time. She was educated that less than 2% of choroidal nevi can metastasize to melanoma over time. She was educated that annual exams are important to monitor for any changes in the appearance or size of the nevus as melanoma is sight and life-threatening. She stated her understanding. Willmonitor in 1 year. Dominant drusen, bilateral Stable to previous exam findings. The patient has scattered dominant drusen in both eyes. The hallmark finding of dominant drusen is the presence of yellow- white deposits on the retina. The patient was educated that most patients remain asymptomatic unless the condition involves the macula (the area that provides clear vision). Since the patient's macula is not involved, no treatment is necessary. Will monitor in 1 year. - OCT, Retina - OU - Both Eyes 3. White without pressure of peripheral retina of both eyes White without pressure (WWOP) is a common retinal condition that occurs in up to 30% of the generalpopulation. WWOP is a lightening in the color of the retina produced by traction on the surface of the retina. The surrounding retina was flat and no holes or tears were noted. The patient was educated that this condition can cause a higher risk of a retinal tear/hole/detachment. The patient was educated to return MARY if they experience a sudden onset of flashes, floaters, or decreased vision asthis can indicate a hole or tear may be occurring. Otherwise, will monitor at her next complete eyeexam. 4. Early cataracts, bilateral Not visually significant. No treatment necessary. Patient educated on progressive nature of cataracts. Will monitor at their next exam. 5. Presbyopia Glasses prescription updated and given. Will monitor at the patient's next full eye exam. Alina Darryn, OD 01/17/2025, 1:27 PM Student Name: Alexa Saeed I attest that I was physically present with the optometry student. I personally saw and evaluated the patient and performed my own history and examination. I have reviewed, verified, and revised the documented findings as necessary and agree with the content and plan as written. Media Center Assistant Source: ___ None _x__ Bilingual Staff ___ Qualified Staff Tin Dipper ___ Telephone Media Center Assistant; ID# ___ Media Center Assistant brought by patient (family member, friend, RESEARCH INSTRUMENTATION TECHNICIAN, etc) ___ In person bulk materials handling plant operator ___ Ipad Media Center Assistant; ID#: Language Spoken During Exam: _Spanish documented in this encounter Plan of Treatment Upcoming Encounters Date Type Department Care Team (Late st Contact Info) Description 02/22/2025 4:00 PM EDT Office Visit [facility] MEDICINE [address] [place] [address] Kay Tamayo MD [address] [place] [address] documented as of this encounter Procedures Procedure Name Priority Date/Time Associated Diagnosis Comments OCT, RETINA - OU - BOTH EYES Routine 12/26/2024 10:00 AM EST Dominant drusen, bilateral documented in this encounter Results * OCT, Retina - OU - Both Eyes (12/26/2024 10:00 AM EST) Rachael AlfaroadelfoBernardon, OD - 01/16/2025 10:13 AM EST OCT [...] and Plan: Stable. Monitor in 1 year. us Alina Alfaroadelfo OD OPHTH TOMOGRAPHY Edited documented in this encounter Visit Diagnoses Diagnosis Nevus of choroid, unspecified laterality- Primary Dominant drusen, bilateral White without pressure of peripheral retina of both eyes Other retinal disorders Early cataracts, bilateral Presbyopia documented in this encounter Additional Health Concerns Assessment Noted Time PHQ-9 Depression Total Score: 11 09/11/ 023 2:43 PM EDT documented as of this encounter Care Teams Canvas Shop Laborer Relationship Specialty Start Date End Date Kay Tamayo MD [address] [place] [address] PCP - General Family Medicine 11/01/20 documented as of this encounter
--- OUTSIDE RECORDS SUMMARY | 2025-01-21 18:57 | XMS_ITS | Encounter Summary ---
Author Organization [employer] Address [address] [facility] [address] [place] [address] Care Team Providers Care Customs Compliance Director Name Role Phone Kay Tamayo MD Primary Care Provider [phone] Encounter Details Date Type Department Care Team [...] Description 02/22/2025 4:00 PM EDT Office Visit [facility] MEDICINE [address] [place], [place] [phone] Kay Tamayo MD [address] [place] [address] documented as of this encounter Procedures Procedure Name Priority Date/Time Associated Diagnosis Comments URINALYSIS, COMPLETE Routine 12/22/2024 10:50 AM EST CULTURE, URINE, ROUTINE Routine 12/22/2024 12:00 AM EST documented in this encounter Results * Urinalysis Complete (12/22/2024 10:50 AM EST) Color Urine Yellow [facility] Appearance Urine Cloudy [facility] PH 6.5 5.0 - 9.0 [facility] Glucose Urine UA Negative Negative mg/dL [facility] Urine Blood Negative Negative [facility] Specific [place] - Urine 1.025 1.005 - 1.025 [facility] Urine Protein Negative Neg-Trace mg/dL [facility] Urine Ketones Negative Negative mg/dL [facility] Nitrite Urine Negative Negative [facility] Leukocyte Esterase Urine Negative Negative [facility] RBC Urine 0-2 0 - 2 /HPF [facility] Urine WBC 0-5 0 - 5 /HPF [facility] Urine Squamous Epithelial Cell 3-5 0 - 2 /HPF [facility] TRANSITIONAL (EPITHELIAL) CELLS (#/HPF) IN URINE Present [facility] Urine Bacteria 1+ None Seen [facility] Hyaline Casts, Urine 0-2 0 - 2 /LPF [facility] 12/22/2024 10:5 0 AM EST 12/22/2024 12:00 PM EST us Generic External Data Provider LAB URINE ORDERAB LES Final Result Performing Organization Address [facility] Co de Phone Number [facility] [address] [place] [phone] * Culture, Urine, Routine (12/22/2024 12:00 AM EST) Urine Urine specimen obtained by clean catch procedure / Unknown 12/22/2024 12/22/2024 Comment:UACC Narrative [facility] - 12/23/2024 9:12 AM EST Urine Culture Report Result Urine Culture 10,000 to 50,000 cfu/ml Urine Culture Mixed bacterial desiree characteristic of Urine Culture urogenital contamination. Specimen Source: Urine clean catch Generic External Data Provider LAB MICROBIOLOGY - GENERAL ORDERABLES Final Result Performing Organization Address [facility] Co de Phone Number [facility] [address] [place] [phone] documented in this encounter Visit Diagnoses Not on filedocumented in this encounter Additional Health Concerns Assessment Noted Time PHQ-9 Depression Total Score: 11 09/11/2 023 2:43 PM EDT documented as of this encounter Care Teams Customs Compliance Director Relationship Specialty Start Date End Date Kay Tamayo MD [address] [place] [phone] PCP - General Family Medicine 11/01/20 documented as of this encounter
--- OUTSIDE RECORDS SUMMARY | 2025-01-21 18:57 | XMS_ITS | Encounter Summary ---
Author Organization [employer] [facility] Address [address] [place] [address] [address], [place] [address] Care Team Providers Care Buckle Coverer Name Role Phone Kay Tamayo MD Primary Care Provider [phone] Encounter Details Date Type Department Care Team (Late st Contact Info) Description 07/29/2023 Orders Only [facility] MEDICINE [address] [place] [phone] Provider, MD Tamiko Social History Tobacco Use [...] Description 02/22/2025 4:00 PM EDT Office Visit [facility] MEDICINE [address] [place] [phone] Kay Tamayo MD [address] [place] [phone] documented as of this encounter Procedures Procedure Name Priority Date/Time Associated Diagnosis Comments HM COLONOSCOPY Routine 05/29/2016 documented in this encounter Results * Hm Colonoscopy (05/29/2016) Historical Provider HEALTH MAINTENANCE Final Result documented in this encounter Visit Diagnoses Not on filedocumented in this encounter Care Teams Buckle Coverer Relationship Specialty Start Date End Date Kay Tamayo MD [address] [place] [address] PCP - General Family Medicine 11/01/20 documented as of this encounter
== END 2025-01-21 18:55 | disposition home or self-care (01) ==
LOC: HO.MRI 18:54
PROVIDERS: PCP Internal Medicine; Visit Provider General Practice
DX: M25.551 Pain in right hip (principal); R93.7 Abnormal findings on diagnostic imaging of other parts of musculoskeletal system
CPT/HCPCS: 72148

== ENCOUNTER → 2025-03-21 11:10 | Outpatient (BNVA) | payer OTHER, SELFPAY | PROVIDERS: PCP Internal Medicine; Visit Provider Physician Assistant Surgical ==

== ENCOUNTER 2025-06-16 14:20 | Outpatient (AMB) | payer OTHER, SELFPAY ==
--- OUTSIDE RECORDS SUMMARY | 2025-06-16 14:20 | XMS_ITS | Encounter Summary ---
Author Organization [facility] Address [address] [facility] [address] [place] [address] Care Team Providers Care Rollout Manager Name Role Phone Kay Tamayo MD Primary Care Provider [phone] Encounter Details Date Type Department Care Team (Latest Contact Info) Description 11/25/2019 Abstract [facility] CONVERSIONS Dental, Provider, DDS Social History [...] Upcoming Encounters Date Type Department Care Team ( st Contact Info) Description 10/05/2025 3:00 PM EST Office Visit [facility] ADULT DENTAL [address] [place] [address] Jasmyn Kern documented as of this encounter Visit Diagnoses Not on filedocumented in this encounter Care Teams Rollout Manager Relationship Specialty Start Date End Date Kay Tamayo MD [address] [place], [place] [phone] PCP - General Family Medicine 11/01/20 documented as of this encounter
[2025-06-16 14:22] VITALS: BP 138/78; PULSE 84; O2SAT 97; BMI 31.2
--- NOTE | 2025-06-16 14:22 | A.OFFVIS_ITS ---
Vital Signs 06/16/25 14:22 Height 5 ft 3 in Weight 176 lb BMI 31.2 BP 138/78 Blood Pressure Location Lt brachial Position Sitting Pulse 84 Pulse Source Pulse Oximeter Pulse Oximetry (%) 97 Oxygen Delivery Method Room Air Intake Visit Reasons: SLE Intake Note: Patient presents for follow up on lupus. Today, she states she is not feeling well. Auto Carrier Driver Services: Auto Carrier Driver Offered & Declined Allergies Penicillins (PENICILLINS) Allergy (Intermediate, Verified 06/16/25 14:24) RASH Medication List - Last Reconciled 06/16/25 by Jaycee Lemon MD ascorbate calcium (vitamin C) 500 mg PO DAILY biotin 5 mg PO DAILY cholecalciferol (vitamin D3) 50 mcg PO DAILY clonazepam 0.5 mg PO BID PRN escitalopram oxalate 5 mg PO DAILY fluoxetine 40 mg PO QAM mecobalamin (vitamin B12) 1,000 mcg PO DAILY nortriptyline 10 mg PO BEDTIME tizanidine 4 mg PO BEDTIME HPI Comments Details: Patient is a 59-year-old female with anxiety and depression, fibromyalgia, lupus and polyarticular osteoarthritis here today for follow up Interval History: Patient last seen 12/15/24 with me - Complained of whole-body pains - No evidence of active lupus - started Tizanidine - Declined steroid injections Today, - Did not start tizanidine - Complaining of back pain. Had MRI which showed nerve root compression 01/2025 - Also complaining of abdominal pain Rheumatologic History: History of lupus and fibromyalgia No organ involvement lupus Plaquenil stopped 01/2023 due to no active signs of lupus Current Rheumatology Medication(s): Nortriptyline 10mg bedtime (being given by primary) Tizanidine 4mg at night (not taking) [facility] Medical History (Updated 06/16/25 @ 14:55 by Jaycee Lemon MD) Knee osteoarthritis Varicose vein of leg GERD (gastroesophageal reflux disease) Hx of migraines Rheumatoid arthritis Hypertension Lupus Surgical History History of sleeve gastrectomy History of bilateral tubal ligation Family History Mother Cancer Hypertension AD (Alzheimer's disease) Father Stroke Social History Alcohol intake: never Patient Tobacco Use Status: Never used Tobacco Review of Systems Const Details: Review of Systems Constitutional: Denies fever, chills, weight loss ENT: Denies vision changes, eye pain or eye redness, dental caries, dry mouth GI: Denies nausea, vomiting, diarrhea, abdominal pain, change in BM Pulm: Denies SOB, HAMMOND, hemoptysis, wheezing Cards: Denies chest pain, palpitations Skin: Denies Raynaud's, rash, nail changes, photosensitivity, EVENT PLANNER: Denies headaches, weakness, paresthesias, recurrent falls MSK: as per HPI All other systems reviewed and are unremarkable except noted above Physical Exam Exam Exam: Vital signs reviewed Physical Examination CONSTITUITIONAL Patient alert and cooperative. Well appearing and in no apparent painful distress MSK Hands * Right Hand: Able to make a fist. No swelling or tenderness to palpation of these joints. No deformities noted. * Left Hand: Able to make a fist. No swelling or tenderness to palpation of these joints. No deformities noted. Wrists * Right Wrist: Full ROM. 70 degrees of wrist flexion, 80 degrees of wrist extension. No swelling or TTP * Left Wrist: Full ROM. 70 degrees of wrist flexion, 80 degrees of wrist extension. No swelling or TTP Elbows * Right Elbow: Full ROM. No swelling or TTP. No TTP of the medial and lateral epicondyles * Left Elbow: Full ROM. No swelling or TTP. No TTP of the medial and lateral epicondyles Shoulders * Right shoulder: Full ROM. No swelling noted. No TTP of the AC joint, subacromial bursa or posterior shoulder * Left shoulder: Full ROM. No swelling noted. No TTP of the AC joint, subacromial bursa or posterior shoulder Knees * Right knee: Full ROM. No swelling noted. No TTP of the knee joint lie or pes anserine bursa * Left knee: Full ROM. No swelling noted. No TTP of the knee joint lie or pes anserine bursa. * Crepitations felt bilaterally Ankles * Right ankle: Good ankle dorsiflexion and plantar flexion. No swelling. No TTP of the ankle joint * Left ankle: Good ankle dorsiflexion and plantar flexion. No swelling. No TTP of the ankle joint Feet * Right foot: Negative squeeze test * Left foot: Negative squeeze test Tender points? * Tenderness to palpation of the bilateral trapezius, supraspinatus, anterior costochondral junctions, bilateral suboccipital muscle insertions SKIN No rashes Vital Signs: BMI result Body Mass Index 31.2 Results Reviewed Results Reviewed: Laboratory Tests 09/02/24 12/16/24 08:20 11:02 WBC 6.3 RBC 4.54 Hgb 12.1 Hct 37.3 Plt Count 252 ESR 27 H Sodium 141 Potassium 4.0 Chloride 108 Carbon Dioxide 24 BUN 11 Creatinine 0.59 AST 19 ALT 19 C-Reactive Protein 0.49 0.72 H Laboratory Tests 12/16/24 11:02 Double Strand DNA Ab 1 Complement C3 162 Complement C4 37 Assessment & Plan Assessment & Plan (1) Lupus: Comment: No evidence of active lupus on exam January 2023 Code(s): M32.9 - Systemic lupus erythematosus, unspecified Category: Medical Plan: #SLE Patient is a 59-year-old female with a history of lupus based on arthralgias, oral ulcers and photosensitivity. Has not been on Plaquenil since 2022. No evidence of active lupus today on examination. RICCO negative, complement normal We will monitor off Plaquenil for now Plan - hold Plaquenil for now - RTC 6 months (2) Fibromyalgia: Comment: Started on nortriptyline 01/2023 by psychiatrist with improvement symptoms Tried gabapentin in the past without improvement Code(s): M79.7 - Fibromyalgia Category: Medical Plan: #Fibromyalgia Reinforced trying Tizanidine Plan - Tizanidine 4mg at night - Continue nortriptyline - Stretches and exercises (3) Lumbar disc herniation: Code(s): M51.26 - Other intervertebral disc displacement, lumbar region Plan: #Disc herniation Lumbar disc herniation Referred to pain management Plan I spent 20 minutes reviewing the record and labs, taking a history, examining the patient, discussing the treatment plan and documenting in the medical record Orders: Referrals Pain Management Referral M47.816 - Spondylosis without myelopathy or radiculopathy, lumbar region Coding Level of Care Code Est Pt Level 3 (54748) Diagnoses Lupus M32.9 Fibromyalgia M79.7 Lumbar disc herniation M51.26
== END 2025-06-16 14:58 | disposition home or self-care (01) ==
PROVIDERS: PCP Internal Medicine; Visit Provider Student in an Organized Health Care Education/Training Program
DX: M32.9 Systemic lupus erythematosus, unspecified (principal); M79.7 Fibromyalgia; M51.26 Other intervertebral disc displacement, lumbar region
CPT/HCPCS: 99213

== ENCOUNTER → 2025-06-16 14:20 | Outpatient (BNVA) | payer OTHER, SELFPAY | PROVIDERS: PCP Internal Medicine; Visit Provider Student in an Organized Health Care Education/Training Program | DX: M79.7 Fibromyalgia (principal); M32.9 Systemic lupus erythematosus, unspecified; M51.26 Other intervertebral disc displacement, lumbar region; M47.816 Spondylosis without myelopathy or radiculopathy, lumbar region; Z79.899 Other long term (current) drug therapy | CPT/HCPCS: 99212 ==

== ENCOUNTER 2025-08-08 13:21 | Outpatient (REF) | payer OTHER, SELFPAY ==
--- OUTSIDE RECORDS SUMMARY | 2025-08-08 13:00 | XMS_ITS | Encounter Summary ---
Author Organization [employer] Address [address] [facility] [address] [place] [address] Care Team Providers Care Blind Aide Name Role Phone Kay Tamayo MD Primary Care Provider [phone] Reason for Referral * Imaging (STAT) - Pending Review Specialty Diagnoses / Procedures Referred By Contac t Referred To Contact Radiology Diagnoses Epigastric pain Procedures CT Abdomen w/ Contrast Sergei Morales MD [address] [place] [address] Phone: tel: fax: [address] Phone: tel: fax: Referral ID Status Reason Start Date Expiration Date V isits Requested Visits Authorized [id number] Pending Review 08/08/2025 08/08/2026 1 1 * Consultation (Routine) - Authorized Specialty Diagnoses / Procedures Referred By Contac t Referred To Contact Gastroenterology Diagnoses Epigastric pain Sergei Morales MD [address] [place] [address] Phone: tel: fax: [facility] Referral ID Status Reason Start Date Expiration Date Visits Requested Visits Authorized [id number] Authorized Specialty Services Required 08/08/2025 08/08/2026 1 1 Reason for Visit * Reason Comments Abdominal Pain Encounter Details Date Type Department Care Team (Late st Contact Info) Description 08/08/2025 1:00 PM EDT Office Visit [facility] MED[facility] [address] [place] [address] Sergei Morales MD [address] [place] [address] Epigastric pain (Primary Dx) Social History Tobacco Use Types [...] Sign Reading Time Taken Comments Blood Pressure 110/72 08/08/2025 12:59 PM EDT Pulse 70 08/08/2025 12:59 PM EDT Temperature 36.3 C (97.3 F) 08/08/2025 12:59 PM EDT Respiratory Rate 20 08/08/2025 12:59 PM EDT Oxygen Saturation 98% 08/08/2025 12:59 PM EDT Inhaled Oxygen Concentration - - Weight 79.2 kg (174 lb 9.6 oz) 08/08/2025 12:59 PM EDT Height 160 cm (5' 3 ) 08/08/2025 12:59 PM EDT Body Mass Index 30.93 08/08/2025 12:59 PM EDT documented in this encounter Functional Status * Over the last 2 weeks, how often have you been bothered by any of the following problems? Question Answer Date of Assessment Author Feeling nervous, anxious, or on edge 0 08/08/2025 1:01 PM EDT Claudia Metcalf MA Not being able to stop or co ntrol worrying 0 08/08/2025 1:01 PM EDT Claudia Metcalf MA Worrying too much about diff erent things 0 08/08/2025 1:01 PM EDT Claudia Metcalf MA Trouble relaxing 0 08/08/2025 1:01 PM EDT Claudia Lugo MA Being so restless that it is hard to sit still 0 08/08/2025 1:01 PM EDT Claudia Metcalf MA Becoming easily annoyed or irritable 0 08/08/2025 1:01 PM EDT Claudia Metcalf MA Feeling afraid as if somethi ng awful might happen 0 08/08/2025 1:01 PM EDT Claudia Metcalf MA ANTONINA-7 Total Score 0 08/08/2025 1:01 PM EDT Claudia Metcalf MA documented as of this encounter Miscellaneous Notes * Assessment & Plan Note - Sergei Fisher MD - 08/08/2025 1:21 PM EDT Associated Problem(s): Epigastric pain 59 year old female with PMHx of Lap band procedure here for a sick visit with c/o acute on chronic epigastric abdominal pain. Pt states has been present for years but worsening over the past six months and sometimes unbearable over the past few days. Described as intensity 8/10 radiates to the back associated with nausea, had some relief with Milk of Magnesia. Admits to take lots of NSAIDS for her chronic back pain. On exam she is tender to palpation over her epigastrium, no rebound no guarding. Plan: Obtain CBC, Lipase, LFTs STAT CT of Abdomen Prescribed omeprazole 40 mg daily. GI referral given the chronicity of abd pain, needs EGD Pending initial evaluation will decide further work up Pt refused to be evaluated in the ER Discussed with her if abdominal pain worsens or if she is unable to eat or drink she needs to persent herself immediately to the nearest ER F/u with PCP after initial testing done documented in this encounter Plan of Treatment Upcoming Encounters Date Type Department Care Team (Late st Contact Info) Description 10/05/2025 3:00 PM EST Office Visit [facility] ADULT DENTAL [address] [place] [address] Jasmyn Kern 10/27/2025 1:30 PM EST Office Visit [facility] [address] [place] [address] Kay Tamayo MD [address] [place] [address] Scheduled Orders Name Type Priority Associated Diagnoses Orde r Schedule CT Abdomen w/ Contrast Imaging STAT Epigastric pain Ordered: 08/08/2025 Scheduled Referrals Name Type Priority Associated Diagnoses Order Schedule Referral to Gastroenterology Outpatient Referral Routine Epigastric pain Expected: 08/08/2025 (Approximate), Expires: 08/08/2026 documented as of this encounter Procedures Procedure Name Priority Date/Time Associated Diagnosis Comments CBC WITH AUTO DIFFERENTIAL Routine 08/08/2025 1:31 PM EDT Epigastric pain LIPASE Routine 08/08/2025 1:31 PM EDT Epigastric pain COMPREHENSIVE METABOLIC PANEL Routine 08/08/2025 1:31 PM EDT Epigastric pain documented in this encounter Results * Lipase (08/08/2025 1:31 PM EDT) Lipase 43 8 - 78 U/L [facility] Blood Venous blood specimen / Unknown 08/08/2025 1:31 PM EDT 08/08/2025 4:04 PM EDT us Sergei Fisher MD LAB BLOOD ORDERABLES Final Result [facility] [address] [place] [address] [phone] * (ABNORMAL) Comprehensive Metabolic Panel (08/08/2025 1:31 PM EDT) Sodium 139 135 - 145 mmol/L [facility] Potassium 4.2 3.3 - 5.1 mmol/L [facility] Chloride 107 96 - 108 mmol/L [facility] Carbon Dioxide 26 22 - 29 mmol/L [facility] Anion Gap 10(L) 12 - 20 [facility] Urea Nitrogen (BUN) 14 9 - 16 mg/dL [facility] Creatinine, Serum 0.62 0.5 - 1.4 mg/dL [facility] Estimated Glomerular Filt Rate >60 [facility] Comment:Chronic Kidney Disea se: Estimated GFR < 60 mL/min/1.93v3Uzdtrs Kidney Disease: Estimated GFR < 15 mL/min/1.73m2 Glucose 95 60 - 115 mg/dL [facility] Calcium 10.0 8.4 - 10.2 mg/dL [facility] Bilirubin, Total 0.4 0.0 - 1.0 mg/dL [facility] Aspartate Amino Transferase 22 5 - 31 U/L [facility] Alanine Aminotransferase 14 0 - 31 U/L [facility] Total Protein 7.5 6.5 - 8.0 g/dL [facility] Albumin Level 4.3 3.5 - 5.0 g/dL [facility] Alkaline Phosphatase 66 39 - 117 U/L [facility] Blood Venous blood specimen / Unknown 08/08/2025 1:31 PM EDT 08/08/2025 4:04 PM EDT us Sergei Fisher MD LAB BLOOD ORDERABLES Final Result [facility] [address] [place] [phone] * (ABNORMAL) CBC auto differential (08/08/2025 1:31 PM EDT) White Blood Count 6.4 4.8 - 10.8 X10*3/uL [facility] Red Blood Count 4.40 4.20 - 5.50 X10*6/uL [facility] Hemoglobin 12.0 12.0 - 16.0 g/dl [facility] Hematocrit 36.5(L) 37.0 - 47.0 % [facility] Mean Corpuscular Volume 83.0 80.0 - 98.0 fL [facility] Mean Corpuscular Hemoglobin 27.3 27.0 - 33.0 pg [facility] Mean Corpuscular HGB Conc 32.9 31.0 - 35.0 g/dl [facility] Red Cell Distribution Width 13.5 11.0 - 16.0 % [facility] Platelet Count 256 160 - 400 X10*3/uL [facility] Mean Platelet Volume 12.1 9.4 - 12.3 fL [facility] Neutrophils Percent Auto 62.4 45 - 73 % [facility] Imm Gran Pct Auto 0.2 0.0 - 0.4 % [facility] Lymphocytes Percent Auto 26.1 20 - 40 % [facility] Monocytes Percent Auto 9.4 2 - 11 % [facility] Eosinophils Percent Auto 1.6 0 - 4 % [facility] Basophils Percent Auto 0.3 0 - 2 % [facility] NRBC Pct Auto 0.0 0.0 - 0.2 /100WBC [facility] Neutrophils Absolute Auto 4.0 2.0 - 8.3 x10*3/uL [facility] Imm Gran Abs Auto 0.01 0.00 - 0.03 X10*3/uL [facility] Lymphocytes Absolute Auto 1.7 1.2 - 4.9 X10*3/uL [facility] Monocytes Absolute Auto 0.6 0.1 - 1.2 X10*3/uL [facility] Eosinophils Absolute Auto 0.1 0.0 - 0.4 X10*3/uL [facility] Basophils Absolute Auto 0.0 0.0 - 0.2 X10*3/uL [facility] NRBC Abs Auto 0.000 0.0 - 0.012 X10*3/uL [facility] Blood Venous blood specimen / Unknown 08/08/2025 1:31 PM EDT 08/08/2025 4:04 PM EDT us Sergei Fisher MD LAB BLOOD ORDERABLES Final Result [facility] [address] [place] [phone] documented in this encounter Visit Diagnoses Diagnosis Epigastric pain- Primary Abdominal pain, epigastric documented in this encounter Additional Health Concerns Assessment Noted Time PHQ-9 Depression Total Score: 2 12/30/19 25 11:00 AM EST documented as of this encounter Care Teams Blind Aide Relationship Specialty Start Date End Date Kay Tamayo MD [address] [place] [phone] PCP - General Family Medicine 11/01/20 documented as of this encounter
[2025-08-08 16:11] LABS: MANUAL DIFF FLAG NO
[2025-08-08 16:13] LABS: Hematocrit 36.5 % (37.0-47.0); Hemoglobin 12.0 g/dl (12.0-16.0); Imm Gran Abs Auto 0.01 X10*3/uL (0.00-0.03); Imm Gran Pct Auto 0.2 % (0.0-0.4); Lymphocytes Absolute Auto 1.7 X10*3/uL (1.2-4.9); Mean Corpuscular HGB Conc 32.9 g/dl (31.0-35.0); Mean Corpuscular Hemoglobin 27.3 pg (27.0-33.0); Mean Corpuscular Volume 83.0 fL (80.0-98.0); NRBC Abs Auto 0.000 X10*3/uL (0.0-0.012); NRBC Pct Auto 0.0 /100WBC (0.0-0.2); Platelet Count 256 X10*3/uL (160-400); Red Blood Count 4.40 X10*6/uL (4.20-5.50); White Blood Count 6.4 X10*3/uL (4.8-10.8)
[2025-08-08 16:44] LABS: Alanine Aminotransferase 14 U/L (0-31); Albumin Level 4.3 g/dL (3.5-5.0); Alkaline Phosphatase 66 U/L (39-117); Anion Gap 10 (12-20); Aspartate Amino Transferase 22 U/L (5-31); Blood Urea Nitrogen 14 mg/dL (9-16); Calcium 10.0 mg/dL (8.4-10.2); Carbon Dioxide 26 mmol/L (22-29); Chloride 107 mmol/L (96-108); Estimated Glomerular Filt Rate > 60; Lipase 43 U/L (8-78); Potassium 4.2 mmol/L (3.3-5.1); Sodium 139 mmol/L (135-145); Total Protein 7.5 g/dL (6.5-8.0)
--- OUTSIDE RECORDS SUMMARY | 2025-08-08 17:18 | XMS_ITS | Encounter Summary ---
Author Organization [employer] Address [address] [facility] 7[address] [place] [address] Care Team Providers Care Call Center Manager Name Role Phone Kay Tamayo MD Primary Care Provider Encounter Details Date Type Department Care Team (Late st Contact Info) Description 08/05/2024 Orders Only [facility] [address] [place], [place] [phone] Kay Tamayo MD [address] [place], [place] [phone] Essential hypertension (Primary Dx); Lupus erythematosus, unspecified [...] Description 10/05/2025 3:00 PM EST Office Visit [facility] ADULT D[facility] [address] [place] [address] Jasmyn Kern 10/27/2025 1:30 PM EST Office Visit [facility] [address] [place] [address] Kay Tamayo MD [address] [place] [address] documented as of this encounter Procedures Procedure [...] 8:20 AM EDT) HIV AB/AG Nonreactive Nonreactive [facility] Comment:HIV-1 p24 Ag and/or HIV-1/HIV-2 Ab not detected.A test result that is nonreactive does not exclude thepossibility of exposure to or infection with HIV-1 and/orHIV-2. Nonreactive results in this assay for individualswith prior exposure to HIV-1 and/or HIV-2 may be due toantigen and antibody levels that are below the limit ofdetection of this assay.The [employer] HIV Ag/Ab Combo assay result andsupplemental assay results should be interpreted inconjunction with the patient's clinical presentation,history and other laboratory results. If the results areinconsistent with clinical evidence, additional testing issuggested to confirm the result. Blood Venous blood specimen / Unknown 09/02/2024 8:20 AM EDT 09/02/2024 11:09 AM EDT Kay Tamayo MD LAB BLOOD ORDERABLES Final Res ult Performing Organization Address [facility]/ZIP Co de Phone Number [facility] [address] [place] [phone] * Hepatitis C Antibody with Reflex to HCV, RNA, Quantitative, Real-Time PCR (09/02/2024 8:20 AM EDT) Hepatitis C Antibody Nonreactive Nonreactive [facility] Comment:Antibodies to HCV no t detected; does not exclude early acuteHCV infection. Blood Venous blood specimen / Unknown 09/02/2024 8:20 AM EDT 09/02/2024 11:09 AM EDT Kay Tamayo MD LAB BLOOD ORDERABLES Final Res ult [facility] [address] [place] [phone] * Hemoglobin A1c (09/02/2024 8:20 AM EDT) Hemoglobin A1c 6.0 <6.0 % [facility] Comment:Hemoglobin A1C Refer ence Range Adults: 4.8 - 6.0 % Non diabetic: < 6.0 % Goal: < 7.0 %Additional Action Suggested: > 8.0 %Note: Hemoglobin A1c results are invalid for patients with abnormal amounts of HbF. Blood transfusions may impact the HbA1c concentration in the patient sample. Estimated Average Glucose 126 mg/dL [facility] Comment:eAG = Estimated ave rage glucose which is %A1C expressed asaverage glucose, using the formula of the U9H-IzqouizUokcnmy Glucose study (ADAG), Diabetes Care, Vol.31,#8,Jun. 2007 Blood Venous blood specimen / Unknown 09/02/2024 8:20 AM EDT 09/02/2024 11:09 AM EDT us Kay Tamayo MD LAB BLOOD ORDERABLES Final Res ult Performing Organization Address [facility]/ZIP Co de Phone Number [facility] [address] [place] [phone] * (ABNORMAL) Comprehensive Metabolic Panel (09/02/2024 8:20 AM EDT) Sodium 139 135 - 145 mmol/L [facility] Potassium 3.9 3.3 - 5.1 mmol/L [facility] Chloride 106 96 - 108 mmol/L [facility] Carbon Dioxide 28 22 - 29 mmol/L [facility] Anion Gap 9(L) 12 - 20 [facility] Urea Nitrogen (BUN) 12 9 - 16 mg/dL [facility] Creatinine, Serum 0.73 0.5 - 1.4 mg/dL [facility] Estimated Glomerular Filt Rate >60 [facility] Comment:NOTE: For -Am erican individuals, multiply the result by 1.210.Chronic Kidney Disease: Estimated GFR < 60 mL/min/1.94g2Mncsol Kidney Disease: Estimated GFR < 15 mL/min/1.73m2 Glucose 104 60 - 115 mg/dL [facility] Calcium 9.7 8.4 - 10.2 mg/dL [facility] Bilirubin, Total 0.8 0.0 - 1.0 mg/dL [facility] Aspartate Amino Transferase 17 5 - 31 U/L [facility] Alanine Aminotransferase 16 0 - 31 U/L [facility] Total Protein 7.3 6.5 - 8.0 g/dL [facility] Albumin Level 3.9 3.5 - 5.0 g/dL [facility] Alkaline Phosphatase 61 39 - 117 U/L [facility] Blood Venous blood specimen / Unknown 09/02/2024 8:20 AM EDT 09/02/2024 11:09 AM EDT us Kay Tamayo MD LAB BLOOD ORDERABLES Final Res ult [facility] [address] [place] [phone] * (ABNORMAL) CBC auto differential (09/02/2024 8:20 AM EDT) White Blood Count 5.4 4.8 - 10.8 X10*3/uL [facility] Red Blood Count 4.50 4.20 - 5.50 X10*6/uL [facility] Hemoglobin 12.0 12.0 - 16.0 g/dl [facility] Hematocrit 37.4 37.0 - 47.0 % [facility] Mean Corpuscular Volume 83.1 80.0 - 98.0 fL [facility] Mean Corpuscular Hemoglobin 26.7(L) 27.0 - 33.0 pg [facility] Mean Corpuscular HGB Conc 32.1 31.0 - 35.0 g/dl [facility] Red Cell Distribution Width 14.1 11.0 - 16.0 % [facility] Platelet Count 267 160 - 400 X10*3/uL [facility] Mean Platelet Volume 11.5 9.4 - 12.3 fL [facility] Neutrophils Percent Auto 58.4 45 - 73 % [facility] Imm Gran Pct Auto 0.2 0.0 - 0.4 % [facility] Lymphocytes Percent Auto 29.6 20 - 40 % [facility] Monocytes Percent Auto 9.4 2 - 11 % [facility] Eosinophils Percent Auto 2.0 0 - 4 % [facility] Basophils Percent Auto 0.4 0 - 2 % [facility] NRBC Pct Auto 0.0 0.0 - 0.2 /100WBC [facility] Neutrophils Absolute Auto 3.2 2.0 - 8.3 x10*3/uL [facility] Imm Gran Abs Auto 0.01 0.00 - 0.03 X10*3/uL [facility] Lymphocytes Absolute Auto 1.6 1.2 - 4.9 X10*3/uL [facility] Monocytes Absolute Auto 0.5 0.1 - 1.2 X10*3/uL [facility] Eosinophils Absolute Auto 0.1 0.0 - 0.4 X10*3/uL [facility] Basophils Absolute Auto 0.0 0.0 - 0.2 X10*3/uL [facility] NRBC Abs Auto 0.000 0.0 - 0.012 X10*3/uL [facility] Blood Venous blood specimen / Unknown 09/02/2024 8:20 AM EDT 09/02/2024 11:09 AM EDT us Kay Tamayo MD LAB BLOOD ORDERABLES Final Res ult [facility] [address] [place] [phone] * C-reactive Protein (09/02/2024 8:20 AM EDT) C Reactive Protein 0.49 < or = 0.50 mg/dL [facility] Blood Venous blood specimen / Unknown 09/02/2024 8:20 AM EDT 09/02/2024 11:09 AM EDT us Kay Tamayo MD LAB BLOOD ORDERABLES Final Res ult Performing Organization Address City/State/[facility] Co de Phone Number [facility] [address] [place] [phone] [phone] documented in this encounter Visit Diagnoses Diagnosis Essential hypertension- Primary Unspecified essential hypertension Lupus erythematosus, unspecified form Prediabetes Other abnormal glucose Screening examination for STI documented in this encounter Additional Health Concerns Assessment Noted Time PHQ-9 Depression Total Score: 11 023 2:43 PM EDT documented as of this encounter Care Teams Call Center Manager Relationship Specialty Start Date End Date Kay Tamayo MD [address] [place] [phone] PCP - General Family Medicine 11/01/20 documented as of this encounter
--- OUTSIDE RECORDS SUMMARY | 2025-08-08 17:18 | XMS_ITS | Encounter Summary ---
Author Organization [employer] Address [address] [facility] [address] [place] [address] Care Team Providers Care Instructional Resource Teacher Name Role Phone Kay Tamayo MD Primary Care Provider [phone] Reason for Visit * Reason Onset Date Comments chart prep 08/07/2025 Encounter Details Date Type Department Care Team ([facility] st Contact Info) Description 08/07/2025 Telephone [facility] [address] [place] [address] Kay Tamayo MD [address] [place] [address] chart prep Social History Tobacco Use Types Packs/Day Years [...] encounter Miscellaneous Notes * Telephone Encounter - Claudia Metcalf MA - 08/07/2025 1:11 PM EDT Chart Prep Labs: not done Images: done Screenings: Colonoscopy Vaccines due: Covid Due, PCV20 Due, and Flu Due Referrals: Completed Overdue care gaps: Sbirt, GAD7, and Disability documented in this encounter Plan of Treatment Upcoming Encounters Date Type Department Care Team (Late st Contact Info) Description 10/05/2025 3:00 PM EST Office Visit [facility] ADULT DENTAL [address] [place] [address] Jasmyn Kern 10/27/2025 1:30 PM EST Office Visit [facility] [address] [place] [address] Kay Tamayo MD [address] [place] [phone] documented as of this encounter Visit Diagnoses Not on filedocumented in this encounter Additional Health Concerns Assessment Noted Time PHQ-9 Depression Total Score: 2 12/30/19 25 11:00 AM EST documented as of this encounter Care Teams Instructional Resource Teacher Relationship Specialty Start Date End Date Kay Tamayo MD [address] [place] [phone] PCP - General Family Medicine 11/01/20 documented as of this encounter
--- OUTSIDE RECORDS SUMMARY | 2025-08-08 17:18 | XMS_ITS | Encounter Summary ---
Author Organization [employer] Address [address] [facility] 7 [place] [address] Care Team Providers Care Towel Sorter Name Role Phone Kay Tamayo MD Primary Care Provider [phone] Reason for Referral * Imaging (Routine) - Closed Specialty Diagnoses / Procedures Referred By Contac t Referred To Contact Radiology Diagnoses Lumbar foraminal stenosis Procedures MR Lumbar Spine w/o Contrast Kay Tamayo MD [address] [place] [address] Phone: tel: fax: [address] Phone: tel: fax: Referral ID Status Reason Start Date Expiration Date Visits Re quested Visits Authorized [id number] Closed 06/17/2023 06/16/2024 1 1 Encounter Details Date Type Department Care Team (Late st Contact Info) Description 06/17/2023 Orders Only [facility] [address] [place] [address] Kay Tamayo MD [address] [place], [place] [phone] Lumbar foraminal stenosis (Primary Dx) Social History [...] Description 10/05/2025 3:00 PM EST Office Visit [facility] ADULT DENTAL [address] [place] [address] Jasmyn Kern 10/27/2025 1:30 PM EST Office Visit [facility] [address] [place] [address] Kay Tamayo MD [address] [place] [address] Scheduled Orders Name Type Priority Associated Diagnoses Orde r Schedule MR Lumbar Spine w/o Contrast Imaging Routine Lumbar foraminal stenosis Expected: 06/17/2023, Expires: 06/17/2024 documented as of this encounter Visit Diagnoses Diagnosis Lumbar foraminal stenosis- Primary documented in this encounter Care Teams Towel Sorter Relationship Specialty Start Date End Date Kay Tamayo MD [address] [place] [phone] PCP - General Family Medicine 11/01/20 documented as of this encounter
--- OUTSIDE RECORDS SUMMARY | 2025-08-08 17:18 | XMS_ITS | Encounter Summary ---
Author Organization [employer] Address [address] [facility] [address] [place] [address] Care Team Providers Care Mortgage Specialist Name Role Phone Kay Tamayo MD Primary Care Provider Reason for Visit * Reason Onset Date Comments Nurse Triage 08/07/2025 Encounter Details Date Type Department Care Team ([facility] st Contact Info) Description 08/07/[address] [facility] [address] [place] [address] Kay Tamayo MD [address] [place] [address] Nurse Triage Social History Tobacco Use Types [...] encounter Miscellaneous Notes * Telephone Encounter - Kezia Mathews LPN - 08/07/2025 10:40 AM EDT Triage call returned with [facility] # [id number] [facility]. Patient with complaints of upper abdominal pain. Worse at night and with fluids. 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 Now with worsening reported acid reflux symptoms sleeps upright and feels acid come up in mouth. Has used Tums OTC with no noted relief. Patient without fever today. Novomiting. Disposition reviewed and patient in agreement with plan. ASK/ tomorrow at 1pm. Protocol Used: Abdominal Pain - Upper (Adult) Protocol-Based Disposition: See in Office or Video Visit within 2 Weeks Video visit not offered Positive Triage Question: * Intermittent pains shoot into chest, with sour taste in mouth (Exception: Symptoms same as previously diagnosed reflux and not tried antacids.) * All higher-acuity triage questions were negative Care Advice Discussed: * Antacid Medicine * Reasons To Call Back - You become worse * Telephone Encounter - Silvestre Hameed - 08/07/2025 10:16 AM EDT Symptom: Abdominal Pain - Female - Status Unknown Outcome: Transfer to a nurse or provider NOW! Reason: Severe abdominal pain The caller accepted this outcome. Pt reports has stomach surgery done about 5 years ago . Pt reports even drinking water is painful . German Speaking documented in this encounter Plan of Treatment Upcoming Encounters Date Type Department Care Team (Late st Contact Info) Description 10/05/2025 3:00 PM EST Office Visit [facility] ADULT DENTAL [address] [place] [address] Jasmyn Kern 10/27/2025 1:30 PM EST Office Visit [facility] [address] [place] [address] Kay Tamayo MD [address] [place] [phone] documented as of this encounter Visit Diagnoses Not on filedocumented in this encounter Additional Health Concerns Assessment Noted Time PHQ-9 Depression Total Score: 2 12/30/19 25 11:00 AM EST documented as of this encounter Care Teams Mortgage Specialist Relationship Specialty Start Date End Date Kay Tamayo MD [address] [place] [phone] PCP - General Family Medicine 11/01/20 documented as of this encounter
--- OUTSIDE RECORDS SUMMARY | 2025-08-08 17:18 | XMS_ITS | Encounter Summary ---
Author Organization [employer] Address [address] [facility] [address] [place] [address] Care Team Providers Care Campaign Coordinator Name Role Phone Kay Tamayo MD Primary Care Provider [phone] Reason for Visit * Reason Onset Date Comments Sooner appointment/speak with PCP 08/08/2025 Encounter Details Date Type Department Care Team ([facility] st Contact Info) Description 08/08/2025 Telephone [facility] [address] [place] [address] Kay Tamayo MD [address] [place] [address] Sooner appointment/speak with PCP Social History Tobacco Use Types Packs/Day Years [...] AM EDT documented as of this encounter Functional Status * Over the [...] encounter Miscellaneous Notes * Telephone Encounter - Tiffany [place] - 08/08/2025 3:21 PM EDT Called Patient to schedule f/u with PCP per Dr. Hartman. Patient was offered soonest available. PerPatient the appointment is too far. Last time she saw PCP was Dec 2024 and urgently wants to speak to her about lab results. Patient was scheduled for October but still wanted message sent to team RN. documented in this encounter Plan of Treatment Upcoming Encounters Date Type Department Care Team (Late st Contact Info) Description 10/05/2025 3:00 PM EST Office Visit [facility] [address] [place] [address] Jasmyn Kern 10/27/2025 1:30 PM EST Office Visit [facility] [address] [place] [address] Kay Tamayo MD [address] [place] [phone] documented as of this encounter Visit Diagnoses Not on filedocumented in this encounter Additional Health Concerns Assessment Noted Time PHQ-9 Depression Total Score: 2 12/30/19 25 11:00 AM EST documented as of this encounter Care Teams Campaign Coordinator Relationship Specialty Start Date End Date Kay Tamayo MD [address] [place] [phone] PCP - General Family Medicine 11/01/20 documented as of this encounter
--- OUTSIDE RECORDS SUMMARY | 2025-08-08 17:18 | XMS_ITS | Encounter Summary ---
Author Organization [facility] Address [address] [facility] [address] [place] [address] Care Team Providers Care Utility Pipe Layer Name Role Phone Kay Tamayo MD Primary Care Provider [phone] Encounter Details Date Type Department Care Team (Latest Contact Info) Description 08/22/2021 Abstract [facility] CON[facility]S Dental, Provider, DDS Social [...] Description 10/05/2025 3:00 PM EST Office Visit [facility] [address] [place] [address] Jasmyn Kern 10/27/2025 1:30 PM EST Office Visit [facility] [address] [place] [address] Kay Tamayo MD [address] [place] [address] documented as of this encounter Visit Diagnoses Not on filedocumented in this encounter Care Teams Utility Pipe Layer Relationship Specialty Start Date End Date Kay Tamayo MD [address] [place], [place] [phone] PCP - General Family Medicine 11/01/20 documented as of this encounter
--- OUTSIDE RECORDS SUMMARY | 2025-08-08 17:18 | XMS_ITS | Clinical Summary ---
Author Organization [employer] Address [address] [place] [address] 7 [place] [address] Care Team Providers Care Brass Reclaimer Name Role Phone Kay Tamayo MD Primary Care Provider [phone] Allergies Active Allergy Reactions Criticality Noted Date Comments Amoxicillin Hives,Rash Medium 12/01/2022 Clavulanic Acid Hives,Rash Medium 09/21/2015 Other reaction(s): Hives/Skin Rash Metformin Dizziness 08/29/2022 Penicillins Hives,Rash Medium 09/21/2015 Other reaction(s): Hives/Skin Rash Medications Blood Pressure Monitoring (Omron 3 Series BP Monitor) device USE TO CHECK BLOOD PRESSURE DIRECTED 02/20/2022 Active ibuprofen 600 MG tabletIndicatio ns:Fibromyalgia TAKE 1 TABLET BY MOUTH THREE TIMES DAILY FOR 10 DAYS 90 tablet 2 11/13/2023 Active Acetaminophen 160 MG/5ML syrup Take 10 mL (320 mg) by mouth Every 4-6 hours as needed (headache). 900 mL 11 12/23/2023 Active nortriptyline (Pamelor) 10 MG capsuleIndicati ons:Fibromyalgi a Take 1 capsule (10 mg) by mouth at bedtime. 90 capsule 3 04/26/2024 Active FLUoxetine (PROzac) 20 MG capsule Take 1 capsule (20 mg) by mouth Once per day. 90 capsule 3 04/26/2024 Active traZODone (Desyrel) 50 MG tablet TAKE 1/2 TABLET BY MOUTH AT BEDTIME NEEDED FOR SLEEP 07/27/2024 Active LORazepam (Ativan) 0.5 MG tablet TAKE 1 TABLET BY MOUTH EVERY DAY NEEDED FOR SEVERE ANXIETY / PANIC ATTACK 12/22/2024 Active tiZANidine (Zanaflex) 4 MG tablet TAKE 1 TABLET BY MOUTH AT BEDTIME FOR MUSCLE SPASMS 12/15/2024 Active Liquid Pain Relief 160 MG/5ML liquid TAKE 10 ML BY MOUTH EVERY 4 TO 6 HOURS NEEDED FOR HEADACHE 12/22/2024 Active pregabalin (Lyrica) 50 MG capsule Take 1 capsule (50 mg) by mouth 2 times daily. For back pain 60 capsule 3 02/23/2025 02/24/20 26 Active Cholecalciferol (Vitamin D3) 10 MCG (400 UNIT) chewable tablet CHEW 2 TABLETS BY MOUTH ONCE DAILY IN THE MORNING 180 tablet 3 03/17/2025 Active Multiple Vitamin (Multivitamin) tablet TAKE 1 TABLET BY MOUTH ONCE DAILY IN THE MORNING 90 tablet 3 03/17/2025 Active Ascorbic Acid (vitamin C) 250 MG tablet TAKE 1 TABLET BY MOUTH ONCE DAILY IN THE MORNING 90 tablet 3 03/17/2025 Active omeprazole (PriLOSEC) [address] capsuleIndicati ons:Epigastric pain Take 1 capsule (40 mg) by mouth before breakfast. Do not crush or chew. 30 capsule 11 08/08/2025 08/08/20 26 Active Active Problems Problem Noted Date Diagnosed Date Epigastric pain 08/08/2025 Assessment & Plan (08/08/2025 1:25 PM EDT): 59 year old female with PMHx of [...] F/u with PCP after initial testing done Lumbar disc disease with radiculopathy Overview (02/23/2025): MRI 12/2024 IMPRESSION: Left lateral and posterior lateral disc herniation compressing the left L3 nerve root at the L3-4 disc level. Broad-based disc herniation at L4-5 disc level with mild concentric canal stenosis. Assessment & Plan (02/23/2025 2:43 PM EDT): Cont Tylenol Trial Lyrica (could not tolerate Gabapentin in the past for sedation side effects) Use garlic and tumeric as well, per her desire Consider PT if additional medication is not helpful, and surgery consult after all else She declines acupuncture trial Would like to go to chronic pain later this spring Gingival bleeding 01/04/2025 Periodontal disease 01/04/2025 Tipped [...] Encounters Date Type Department Care Team Description 08/08/2025 1:00 PM EDT Office Visit [facility] [address] [place] [address] Sergei Morales MD Epigastric pain (Primary Dx) 08/08/2025 Telephone [facility] [address] [place] [address] Kay Tamayo MD Sooner appointment/speak with PCP 08/08/2025 Travel 08/07/2025 Telephone [facility] [address] [place] [address] Kay Tamayo MD chart prep 08/07/[address] [address] Kay Tamayo MD Nurse Triage from Last 3 Months Immunizations Immunization Administration Dates Next Due Influenza injectable quadriv [...] Mass Index 30.93 08/08/2025 12:59 PM EDT Plan of Treatment Upcoming Encounters Date Type Department Care Team (Late st Contact Info) Description 10/05/2025 3:00 PM EST Office Visit [facility] [address] [place] [address] Jasmyn Kern 10/27/2025 1:30 PM EST Office Visit [facility] [address] [place] [address] Kay Tamayo MD [address] [place] [address] Health Maintenance Due Date Last Done Comments CT Colonography 1965 FIT DNA/Cologuard 1965 FIT 1965 FOBT 1965 Sigmoidoscopy 1965 Pneumococcal Vaccine: 50+ Years (1 of 1 - PCV) 2014 Colonoscopy 05/29/2021 05/29/2016 Colorectal Cancer Screening 05/29/2021 Dental X-Ray: Bitewings 08/23/2022 08/22/20, 11/25/2019, 07/09/2018, Additional history exists Pap Smear 03/15/2024 03/15/2021 Dental Oral Exam 07/05/2025 01/04/2025, , 11/25/2019, Additional history exists Dental Prophylaxis 07/05/2025 01/04/2025, 0 08/22/2021, 11/25/2019, Additional history exists COVID-19 Vaccine ( season) 2025 04/08/2022, 04/08/2022, 08/22/2021, Additional history exists Influenza Vaccine (#1) 2025 , 09/19/2020, 09/30/2019, Additional history exists Diabetes: Hemoglobin A1C 09/02/2025 024, 01/21/2023, 07/23/2022, Additional history exists SDOH Screening 12/19/2025 12/19/2024 Depression Screening 12/30/2025 12/30/2024, 12/30/19 25 Mammogram 01/05/2026 01/05/2025, 11/24, 12/09/2022, Additional history exists Cervical Cancer Screening 03/15/2026 HPV/Cotest 03/15/2026 03/15/2021 DTaP/Tdap/Td Vaccines (2 - Td or Tdap) 07/18/2026 07/18/2016 Alcohol/Substance Use Screening 08/08/2026 08/08/2025 Disability Screening 08/08/2026 08/08/2025 Tobacco Screening 08/08/2026 08/08/2025 Dental X-Ray: Full Mouth 01/05/2028 025, 11/25/2019, 03/06/2016 Lipid Panel 09/02/2029 09/02/2024, 06/25, 01/07/2022, Additional [...] patient's age to complete this topic Meningococcal B Vaccine Aged Out No l onger eligible based on patient's age to complete [...] Procedure Name Priority Date/Time Associated Diagnosis Comments LIPASE Routine 08/08/2025 1:31 PM EDT Epigastric pain CBC WITH AUTO DIFFERENTIAL Routine 08/08/2025 1:31 PM EDT Epigastric pain COMPREHENSIVE METABOLIC PANEL Routine 08/08/2025 1:31 PM EDT Epigastric pain BI MAMMOGRAM SCREENING TOMOSYNTHESIS BILATERAL Routine 01/05/2025 11:00 AM EST PROPHYLAXIS - ADULT Routine 01/04/2025 9 :00 AM EST Dental calculus Gingival bleeding Acute gingival inflammation Periodontal disease PANORAMIC RADIOGRAPHIC IMAGE Routine 01/04/2025 9:00 AM EST Dental calculus Gingival bleeding Acute gingival inflammation Periodontal disease Tipped teeth Rotated tooth PERIODIC ORAL EVALUATION - ESTABLISHED PATIENT Routine 01/04/2025 9:00 AM EST HEPATITIS C AB W/REFL TO [...] Recently Relevant to Health Maintenance Results * (ABNORMAL) CBC auto differential (08/08/2025 1:31 PM EDT) White Blood Count 6.4 4.8 - 10.8 X10*3/uL [facility] Red Blood Count 4.40 4.20 - 5.50 X10*6/uL [facility] Hemoglobin 12.0 12.0 - 16.0 g/dl [facility] Hematocrit 36.5(L) 37.0 - 47.0 % [facility] Mean Corpuscular Volume 83.0 80.0 - 98.0 fL [facility] Mean Corpuscular Hemoglobin 27.3 27.0 - 33.0 pg [facility] Mean Corpuscular HGB Conc 32.9 31.0 - 35.0 g/dl [facility] Red Cell Distribution Width 13.5 11.0 - 16.0 % [facility] Platelet Count 256 160 - 400 X10*3/uL [facility] Mean Platelet Volume 12.1 9.4 - 12.3 fL [facility] Neutrophils Percent Auto 62.4 45 - 73 % [facility] Imm Gran Pct Auto 0.2 0.0 - 0.4 % [facility] Lymphocytes Percent Auto 26.1 20 - 40 % [facility] Monocytes Percent Auto 9.4 2 - 11 % [facility] Eosinophils Percent Auto 1.6 0 - 4 % [facility] Basophils Percent Auto 0.3 0 - 2 % [facility] NRBC Pct Auto 0.0 0.0 - 0.2 /100WBC [facility] Neutrophils Absolute Auto 4.0 2.0 - 8.3 x10*3/uL [facility] Imm Gran Abs Auto 0.01 0.00 - 0.03 X10*3/uL [facility] Lymphocytes Absolute Auto 1.7 1.2 - 4.9 X10*3/uL [facility] Monocytes Absolute Auto 0.6 0.1 - 1.2 X10*3/uL [facility] Eosinophils Absolute Auto 0.1 0.0 - 0.4 X10*3/uL [facility] Basophils Absolute Auto 0.0 0.0 - 0.2 X10*3/uL [facility] NRBC Abs Auto 0.000 0.0 - 0.012 X10*3/uL [facility] Blood Venous blood specimen / Unknown 08/08/2025 1:31 PM EDT 08/08/2025 4:04 PM EDT Sergei Fisher MD LAB BLOOD ORDERABLES Final Result Performing Organization Address [facility]/ZIP Co de Phone Number [facility] [address] [place] [address] [phone] * Lipase (08/08/2025 1:31 PM EDT) Pathologist [facility] Lipase 43 8 - 78 U/L [facility] Blood Venous blood specimen / Unknown 08/08/2025 1:31 PM EDT 08/08/2025 4:04 PM EDT Sergei Fisher MD LAB BLOOD ORDERABLES Final Result [facility] [address] [place] [phone] [phone] * (ABNORMAL) Comprehensive Metabolic Panel (08/08/2025 1:31 PM EDT) Pathologist [facility] Sodium 139 135 - 145 mmol/L [facility] Potassium 4.2 3.3 - 5.1 mmol/L [facility] Chloride 107 96 - 108 mmol/L [facility] Carbon Dioxide 26 22 - 29 mmol/L [facility] Anion Gap 10(L) 12 - 20 [facility] Urea Nitrogen (BUN) 14 9 - 16 mg/dL [facility] Creatinine, Serum 0.62 0.5 - 1.4 mg/dL [facility] Estimated Glomerular Filt Rate >60 [facility] Comment:Chronic Kidney Disea se: Estimated GFR < 60 mL/min/1.98h4Udcclq Kidney Disease: Estimated GFR < 15 mL/min/1.73m2 Glucose 95 60 - 115 mg/dL [facility] Calcium 10.0 8.4 - 10.2 mg/dL [facility] Bilirubin, Total 0.4 0.0 - 1.0 mg/dL [facility] Aspartate Amino Transferase 22 5 - 31 U/L [facility] Alanine Aminotransferase 14 0 - 31 U/L [facility] Total Protein 7.5 6.5 - 8.0 g/dL [facility] Albumin Level 4.3 3.5 - 5.0 g/dL [facility] Alkaline Phosphatase 66 39 - 117 U/L [facility] Blood Venous blood specimen / Unknown 08/08/2025 1:31 PM EDT 08/08/2025 4:04 PM EDT us Sergei Fisher MD LAB BLOOD ORDERABLES Final Result [facility] [address] [place] [phone] * BI Mammogram Screening Tomosynthesis Bilateral (01/05/2025 11:00 AM EST) Anatomical Region Laterality Modality Breast Bilateral Mammography 01/05/2025 11:0 0 AM EST Narrative 01/13/2025 5:06 PM EST [facility] [address] [place] [address] Mammography Report Signed Patient: Yuko Lyon MR#: [id number] : 1965 Acct:[id number] Age/Sex: 59 / F ADM Date: 01/05/25 Loc: HOAlhajiMAMMO Attending Dr: Yuko Garcia MD Ordering Physician: Yuko Miranda MD Results: 1Negative Date of Service: 01/05/25 Follow Up: 1 Year From Orig ina Mammogram Procedure(s): MM tomosynthesis screening BI Accession Number(s): [id number] cc: Yuko Miranda MD EXAMINATION: MM SCREENING [...] by: Jordana Wadsworth DO 01/13/2025 05:03 PM [facility] Dictated By: Jordana Wadsworth DO Signed By: <Electronically signed by Jordana Wadsworth DO in OV> 01/13/25 1703 DD/ 1100 TD/TT: 01/05/25 1124 Computer Laboratory Technician: Procedure Note Donotuseinterpreter, Image - [facility]/13/[facility] [address] [place], [place] [address] Mammography Report Signed Patient: Yuko LyonMR#: [id number] : 1965Acct:[id number] Age/Sex: 59 / FADM Date: 01/05/25 Loc: MAMMO Attending Dr: Yuko Garcia MD Ordering Physician: Yuko Miranda MDResults: 1Negative Date of Service: 01/05/25Follow Up: 1 Year From [facility] ina Mammogram Procedure(s): MM tomosynthesis screening BI Accession Number(s): [id number] cc: Yuko Miranda MD EXAMINATION: MM SCREENING [...] by: Jordana Wadsworth DO 01/13/2025 05:03 PM [facility] Dictated By: Jordana Wadsworth DO Signed By: <Electronically signed by Jordana Wadsworth DO in OV> 01/13/25 1703 DD/ 1100 TD/TT: 01/05/25 1124 Computer Laboratory Technician: us Yuko Garcia MD IMG BI PROCEDURES Fin al Result * Hepatitis C Antibody with Reflex to HCV, RNA, Quantitative, Real-Time PCR (09/02/2024 8:20 AM EDT) Hepatitis C Antibody Nonreactive Nonreactive [facility] Comment:Antibodies to HCV no t detected; does not exclude early acuteHCV infection. Blood Venous blood specimen / Unknown 09/02/2024 8:20 AM EDT 09/02/2024 11:09 AM EDT us Kay Tamayo MD LAB BLOOD ORDERABLES Final Res ult Performing Organization Address [facility]/ZIP Co de Phone Number [facility] [address] [place] [phone] [phone] * HIV-1/2 Antigen and Antibodies, Fourth Generation, with Reflexes (09/02/2024 8:20 AM EDT) HIV AB/AG Nonreactive Nonreactive [facility] Comment:HIV-1 p24 Ag and/or HIV-1/HIV-2 Ab not detected.A test result that is nonreactive does not exclude thepossibility of exposure to or infection with HIV-1 and/orHIV-2. Nonreactive results in this assay for individualswith prior exposure to HIV-1 and/or HIV-2 may be due toantigen and antibody levels that are below the limit ofdetection of this assay.The Pure360niAltocom HIV Ag/Ab Combo assay result andsupplemental assay results should be interpreted inconjunction with the patient's clinical presentation,history and other laboratory results. If the results areinconsistent with clinical evidence, additional testing issuggested to confirm the result. Blood Venous blood specimen / Unknown 09/02/2024 8:20 AM EDT 09/02/2024 11:09 AM EDT us Kay Tamayo MD LAB BLOOD ORDERABLES Final Res ult Performing Organization Address [facility]/ZIP Co de Phone Number [facility] [address] [place] [phone] * Hemoglobin A1c (09/02/2024 8:20 AM EDT) Hemoglobin A1c 6.0 <6.0 % [facility] Comment:Hemoglobin A1C Refer ence Range Adults: 4.8 - 6.0 % Non diabetic: < 6.0 % Goal: < 7.0 %Additional Action Suggested: > 8.0 %Note: Hemoglobin A1c results are invalid for patients with abnormal amounts of HbF. Blood transfusions may impact the HbA1c concentration in the patient sample. Estimated Average Glucose 126 mg/dL [facility] Comment:eAG = Estimated ave rage glucose which is %A1C expressed asaverage glucose, using the formula of the L8T-EgzqukwGtevmhz Glucose study (ADAG), Diabetes Care, Vol.31,#8,Jun. 2007 Blood Venous blood specimen / Unknown 09/02/2024 8:20 AM EDT 09/02/2024 11:09 AM EDT us Kay Tamayo MD LAB BLOOD ORDERABLES Final Res ult Performing Organization Address [facility] Co de Phone Number [facility] [address] [place] [phone] * (ABNORMAL) Lipid Panel, Standard (09/02/2024 8:20 AM EDT) Triglycerides 99 <150 mg/dL [facility] Comment:Desirable Triglyceri de: less than 150 mg/dLBorderline High Triglyceride 150-199 mg/dLHigh Triglyceride: 200-499 mg/dLVery High Triglyceride: greater than or equal to 5OO mg/dL Cholesterol 262(H) <200 mg/dL [facility] Comment:Desirable Cholestero l: less than 200 mg/dLBorderline High Cholesterol: 200-239 mg/dLHigh Cholesterol: greater than 239 mg/dL LDL Cholesterol Calculated 193(H) <100 mg/dL [facility] Comment:Desirable LDL: less than 100 mg/dLNear Optimal/Above Optimal LDL: 110- 129 mg/dLBorderline High LDL: 130-159 mg/dLHigh LDL: 160-189 mg/dLVery High LDL: greater than or equal to 190 mg/dL HDL Cholesterol 50 >40 mg/dL [facility] Comment:Desirable HDL: great er than 40 mg/dL Note: This HDL assay may give artificially low results in patients with liver disease. Blood Venous blood specimen / Unknown 09/02/2024 8:20 AM EDT 09/02/2024 11:09 AM EDT us Kay Tamayo MD LAB BLOOD ORDERABLES Final Res ult Performing Organization Address [facility]/ZIP Co de Phone Number [facility] [address] [place] [phone] [phone] * THINPREP TIS PAP (03/15/2021 1:47 PM EDT) Clinical Information: None given [facility] COMMENT SEE COMMENT [facility] Comment: EXPLANATORY NOTE: The Pap is a screening test for cervical cancer. It is not a diagnostic test and is subject to false negative and false positive results. It is most reliable when a satisfactory sample, regularly obtained, is submitted with relevant clinical findings and history, and when the Pap result is evaluated along with historic and current clinical information. COMMENT: This Pap test has been evaluated with computer assisted technology. [facility] Dental Receptionist : SEE COMMENT [facility] Comment: BLC,CT(ASCP) CT screening location: [place] [address] Interpretation/R esult: Negative for intraepithelial lesion or malignancy. [facility] LMP: NONE [facility]IVEN [facility] Prev. BX: NONE [facility]IV[facility] Prev. PAP: NONE [facility]IV[facility] SOURCE: None given [facility] Statement Of Adequacy: SEE COMMENT [facility] Comment: Satisfactory for evaluation. Endocervical/transformation zone component present. Age and/or menstrual status not provided 03/15/2021 1:47 PM EDT Kay Tamayo MD LAB PATHOLOGY ORDERABLES Final Result [facility] [address] * HPV mRNA E6/E7 REFLEX TO HPV 16, 18/45 (03/15/2021 1:47 PM EDT) HPV nRNA E6/E7 Not Detected Not Detected [facility] Comment: Methodology: Napkin Machine Operator-Mediated Amplification This assay detects E6/E7 viral messenger RNA (mRNA) from 14 high-risk HPV types (16,18,31,33,35,39,45,51,52,56,58,59,66,68). The analytical performance characteristics of this assay have been determined by [employer]. The modifications have not been cleared or approved by the FDA. This assay has been validated pursuant to the CLIA regulations and is used for clinical purposes. For additional information, please refer to http://education.[employer]/faq/MQD444m8 (This link if provided for information/ educational purposes only.) 03/15/2021 1:4 7 PM EDT us Kay Tamayo MD LAB CYTOLOGY ORDERABLES Final Result [facility] [address] * Hm Colonoscopy (05/29/2016) Historical Provider HEALTH MAINTENANCE Final Result from Last 3 Months or Most Recently Relevant to Health Maintenance [place] [address] [place] [address] < 65 [facility] Care Teams Brass Reclaimer Relationship Specialty Start Date End Date Kay Tamayo MD [address] [place] [address] PCP - General Family Medicine 11/01/20
--- OUTSIDE RECORDS SUMMARY | 2025-08-08 17:18 | XMS_ITS | Encounter Summary ---
Author Organization [employer] Address [address] [facility] [address] [place] [address] Care Team Providers Care Component Design Engineer Name Role Phone Kay Tamayo MD Primary Care Provider [phone] Encounter Details Date Type Department Care Team (Latest Contact Info) Description 08/08/2025 Travel Social History Tobacco Use Types Packs/Day [...] [place] documented as of this encounter Plan of Treatment Upcoming Encounters Date Type Department Care Team (Late st Contact Info) Description 10/05/2025 3:00 PM EST Office Visit [facility] [address] [place] [address] Jasmyn Kern 10/27/2025 1:30 PM EST Office Visit [facility] [address] [place] [address] Kay Tamayo MD [address] [place] [address] documented as of this encounter Visit Diagnoses Not on filedocumented in this encounter Additional Health Concerns Assessment Noted Time PHQ-9 Depression Total Score: 2 12/30/19 25 11:00 AM EST documented as of this encounter Care Teams Component Design Engineer Relationship Specialty Start Date End Date Kay Tamayo MD [address] [place] [address] PCP - General Family Medicine 11/01/20 documented as of this encounter
--- OUTSIDE RECORDS SUMMARY | 2025-08-08 17:18 | XMS_ITS | Encounter Summary ---
Author Organization [employer] [facility] Address [address] [facility] [address] [place] [address] Care Team Providers Care Universal Winding Machine Operator Name Role Phone Kay Tamayo MD Primary Care Provider [phone] Encounter Details Date Type Department Care Team (Latest Contact Info) Description 11/25/2019 Abstract [facility] CONVERSIONS Dental, Provider, DDS Social History [...] Description 10/05/2025 3:00 PM EST Office Visit [facility] ADULT DENT[facility] [address] [place] [address] Jasmyn Kern 10/27/2025 1:30 PM EST Office Visit [facility] [address] [place] [address] Kay Tamayo MD [address] [place] [address] documented as of this encounter Visit Diagnoses Not on filedocumented in this encounter Care Teams Universal Winding Machine Operator Relationship Specialty Start Date End Date Kay Tamayo MD [address] [place] [phone] PCP - General Family Medicine 11/01/20 documented as of this encounter
--- OUTSIDE RECORDS SUMMARY | 2025-08-08 17:18 | XMS_ITS | Encounter Summary ---
Author Organization [facility] Address [address] [place] [address] [address] [address] Care Team Providers Care Clinical Engineering Manager Name Role Phone Kay Tamayo MD Primary Care Provider [phone] Encounter Details Date Type Department Care Team (Late st Contact Info) Description 07/29/2023 Orders Only [facility] [address] [place] [address] [phone] ProviderTamiko MD Social History Tobacco Use Types [...] Description 10/05/2025 3:00 PM EST Office Visit [facility] [address] [place] [address] [phone] Jasmyn Kern 10/27/2025 1:30 PM EST Office Visit [facility] [address] [place] [address] [phone] Kay Tamayo MD [address] [place] [address] [phone] documented as of this encounter Procedures Procedure Name Priority Date/Time Associated Diagnosis Comments COLONOSCOPY Routine 05/29/2016 documented in this encounter Results * Colonoscopy (05/29/2016) us Historical Provider HEALTH MAINTENANCE Final Result documented in this encounter Visit Diagnoses Not on filedocumented in this encounter Care Teams Clinical Engineering Manager Relationship Specialty Start Date End Date Kay Tamayo MD [address] [place] [address] PCP - General Family Medicine 11/01/20 documented as of this encounter
== END 2025-08-08 13:22 | disposition home or self-care (01) ==
LOC: HO.HHCL 13:21
PROVIDERS: PCP Internal Medicine; Referring Provider Student in an Organized Health Care Education/Training Program; Visit Provider Internal Medicine
DX: R10.13 Epigastric pain (principal)
CPT/HCPCS: 36415; 80053; 83690; 85025